=== PATIENT | male | born 1955 | race Caucasian/White ===

== ENCOUNTER 2019-08-26 08:00 | Outpatient (CLI) | payer OTHER, SELFPAY | END 2019-08-26 09:00 | disposition home or self-care (01) | LOC: RHEOACUTE 02-25 12:16 | PROVIDERS: PCP Family Medicine; Visit Provider Internal Medicine Rheumatology | DX: M05.79 Rheumatoid arthritis with rheumatoid factor of multiple sites without organ or systems involvement (principal); Z79.899 Other long term (current) drug therapy | CPT/HCPCS: 36415; 82565; 84460; 85007; 85027; 85651; 86140 ==

== ENCOUNTER 2019-08-26 08:54 | Outpatient (CLI) | payer OTHER, SELFPAY ==
[2019-08-26 09:15] VITALS: BP 130/81; PULSE 74; RESP 18; TEMP 36.4; O2SAT 96
--- NOTE | 2019-08-26 10:27 | PC.NURSE ---
STATES HIVES POPPING UP OVER LAST 7DAYS. BEEN ON CHANTIX AND THINKS IT MAY BE THAT. HAS BEEN TAKING BENADRYL. INSTRUCTED TO CONTINUE TO MONITOR AND LET US KNOW. POSSIBLY NEED TO CALL PCP RE CHANTIX PRESCRIPTION. STATES FEW DAYS LEFT OF CHANTIX.
[2019-08-26 10:28] VITALS: BP 127/92; PULSE 76; RESP 18; TEMP 36.5; O2SAT 96
== END 2019-08-26 08:55 | disposition home or self-care (01) ==
LOC: RHEOACUTE 08:56
PROVIDERS: Family Provider Family Medicine; PCP Family Medicine; Visit Provider Internal Medicine Rheumatology
DX: M05.79 Rheumatoid arthritis with rheumatoid factor of multiple sites without organ or systems involvement (principal); Z79.899 Other long term (current) drug therapy
CPT/HCPCS: 36415; 96365; J1602

== ENCOUNTER 2019-10-22 09:59 | Outpatient (CLI) | payer OTHER, SELFPAY ==
[2019-10-22 10:04] VITALS: BP 159/98; PULSE 71; RESP 16; TEMP 36.6; O2SAT 98
[2019-10-22 10:26] VITALS: BP 142/93; PULSE 68
[2019-10-22 11:46] VITALS: BP 146/94; PULSE 64; RESP 16; TEMP 36.6
== END 2019-10-22 10:00 | disposition home or self-care (01) ==
LOC: RHEOACUTE 10:00
PROVIDERS: Family Provider Family Medicine; PCP Family Medicine; Visit Provider Internal Medicine Rheumatology
DX: M05.79 Rheumatoid arthritis with rheumatoid factor of multiple sites without organ or systems involvement (principal); Z79.899 Other long term (current) drug therapy
CPT/HCPCS: 36415; 80076; 82565; 85025; 85651; 86140; 96365; J1602

== ENCOUNTER 2019-12-17 08:59 | Outpatient (CLI) | payer OTHER, SELFPAY ==
[2019-12-17 09:12] VITALS: BP 136/94; PULSE 66; RESP 16; TEMP 36.6; O2SAT 98
[2019-12-17 10:36] VITALS: BP 147/97; PULSE 55; RESP 16; TEMP 36.6; O2SAT 97
== END 2019-12-17 09:00 | disposition home or self-care (01) ==
LOC: RHEOACUTE 09:00
PROVIDERS: Family Provider Family Medicine; PCP Family Medicine; Visit Provider Internal Medicine Rheumatology
DX: M05.79 Rheumatoid arthritis with rheumatoid factor of multiple sites without organ or systems involvement (principal)
CPT/HCPCS: 96365; J1602

== ENCOUNTER → 2020-01-22 09:15 | Outpatient (BNVA) | payer OTHER, SELFPAY | PROVIDERS: Family Provider Family Medicine; PCP Family Medicine; Visit Provider Internal Medicine Rheumatology | DX: M05.79 Rheumatoid arthritis with rheumatoid factor of multiple sites without organ or systems involvement (principal); Z71.89 Other specified counseling; Z79.899 Other long term (current) drug therapy | CPT/HCPCS: 99214 ==

== ENCOUNTER 2020-02-11 08:58 | Outpatient (CLI) | payer OTHER, SELFPAY ==
[2020-02-11 09:00] VITALS: BP 138/94; PULSE 84; RESP 16; TEMP 36.8; O2SAT 98
[2020-02-11 10:29] VITALS: BP 153/100; PULSE 69; RESP 16; O2SAT 98
--- NOTE | 2020-02-11 10:30 | PC.NURSE ---
BP high. Pt states it's been running little higher. Will f/u with PCP.
== END 2020-02-11 08:59 | disposition home or self-care (01) ==
LOC: RHEOACUTE 08:58
PROVIDERS: Family Provider Family Medicine; PCP Family Medicine; Visit Provider Internal Medicine Rheumatology
DX: M05.79 Rheumatoid arthritis with rheumatoid factor of multiple sites without organ or systems involvement (principal); Z79.899 Other long term (current) drug therapy
CPT/HCPCS: 80076; 82565; 85025; 85651; 86140; 96365; J1602

== ENCOUNTER 2020-03-25 16:48 | Inpatient (IN) | payer MEDICARE, SELFPAY ==
[2020-03-25] VITALS (10 sets, daily range): BP systolic 97–133; BP diastolic 58–99; PULSE 66–97; RESP 18–27; TEMP 36.9; O2SAT 91–96; BMI 28.0
--- NOTE | 2020-03-25 16:58 | XR_ITS ---
WS: [id number] EXAM: AP CHEST: PORTABLE UPRIGHT DATE OF EXAM: 03/25/2020, 1708 hours COMPARISON: Chest x-ray from 05/25/2018 HISTORY: Patient is 65 years old with shortness of breath. Covid 19 infection.. FINDINGS: The cardiac silhouette is normal in size. The mediastinal contours are similar. Retrocardiac hiata l hernia demonstrated.. The pulmonary vascularity is normal. Chronic lung changes again seen. Lung s are clear of consolidation. There is no effusion or pneumothorax. No acute bony abnormality is se en. XR/XR chest 1V portable [id number] IMPRESSION: Chronic lung changes. Retrocardiac hiatal hernia. No acute pulmonary disease.
--- NOTE | 2020-03-25 16:58 | ECG_ITS ---
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 Measurements Intervals [place] Rate: 93 P: 36 NE: 135 QRS: -49 QRSD: 110 T: 52 QT: 339 QTc: 422 Interpretive Statements SINUS RHYTHM LEFT ANTERIOR FASCICULAR BLOCK [QRS AXIS <= -45, QR IN I, RS IN II] No previous ECG available for comparison Electronically Signed On 03-25-2020 19:43:01 CDT by Carlos Garcia M.D. [email or web address]
[2020-03-25 17:15] LABS: Basophils % 0.5 %; Hematocrit 46.4 % (42.0-52.0); Hemoglobin 15.2 g/dL (11.7-16.6); Lymphocytes # 1.3 10^3/uL (0.8-4.8); Mean Corpuscular HGB Conc 32.8 g/dL (30.0-36.0); Mean Corpuscular Hemoglobin 27.9 pg (28.0-34.0); Mean Corpuscular Volume 85.1 fL (80-94); Mean Platelet Volume 10.6 fL (7.4-10.4); Monocytes # 0.7 10^3/uL (0.2-0.9); Monocytes % 17.3 %; Neutrophils # 2.16 10^3/uL (1.8-7.7); Neutrophils % 51.7 %; Nucleated Red Blood Cells % 0 %; Platelet Count 169 10^3/cmm (130-400); Red Blood Count 5.45 10^6/uL (4.1-5.3); Red Cell Distribution Width 14.5 % (12.1-15.1); White Blood Count 4.2 10^3/uL (4.0-10.0)
[2020-03-25 17:31] LABS: INR 0.91 (0.8-1.2)
[2020-03-25 17:32] LABS: Fibrinogen 514 mg/dL (174-498); Partial Thromboplastin Time 42.8 SECONDS (23.9-36.7)
[2020-03-25 17:35] LABS: D Dimer 0.95 ug/mIFEU (0-0.59)
[2020-03-25 17:36] LABS: Lactic Sepsis W/Reflex 1.7 mmol/L (0.5-2.2)
[2020-03-25 17:43] LABS: Troponin T (5th) Once 10 ng/L (0-15)
[2020-03-25] MEDS: enoxaparin 100 mg/mL Syringe SUBCUT (18:06)
[2020-03-25] MEDS: dexamethasone 10 mg/mL INJ IVP (18:06)
[2020-03-25 18:07] LABS: ABG PCO2 28.2 mmHg (35-45); ABG PH Result 7.46 (7.35-7.45); Arterial Blood Gas Hematocrit 45.3 % (42-52); Base Excess ABG -2.6 mmol/L (-2.0-2.0); Blood Gas Allen Test Pos; Blood Gas Sample Site Radial, right; Blood Gas Sample Type Arterial; HCO3 ABG 19.9 mmol/L (22-26); Oxygen Device NC; PO2 ABG 70.8 mmHg (80.0-100.0)
[2020-03-25 18:32] LABS: Influenza A by IFA Negative (Negative); Influenza B by IFA Negative (Negative)
--- NOTE | 2020-03-25 19:39 | W.ED.SOB ---
HPI - SOB/Dyspnea General: Chief Complaint: Shortness of Breath/Dyspnea Stated Complaint: SOB, COVID POSITIVE Time Seen by Provider: 03/25/20 16:58 History of Present Illness: HPI Narrative: This patient is a 65-year-old male presenting with a history of a positive COVID test. He started having symptoms 7 days ago with low-grade fever. Last night he developed a high fever to 103 degrees. His oxygen saturation at home was around 89%. This morning he felt a little bit better but still not well. He has muscle aches but also notes that he has rheumatoid arthritis. He did a virtual visit with his primary care physician today and due to concerns over his immune compromised status and his subjective shortness of breath he was sent to the ER. It was felt that he probably meets criteria for remdesivir. He has taken Tylenol for the fever. He has had some nausea and diarrhea but no vomiting. He has had cough but very mild. MD elicited complaint: shortness of breath and cough Pertinent past history: other Onset (ago): day(s) (7) Timing: constant Severity: moderate Exacerbating factors: nothing Relieving factors: nothing Associated symptoms: Reports fever(s), myalgias and nausea; Deny chest pain Treatment prior to arrival: none Review of Systems General: Reports: 10 or more systems reviewed and unremarkable except in HPI and below Const: Reports: fever(s), chills, body aches, fatigue and malaise Eyes: Denies: change in vision ENMT: Reports: nasal congestion; Denies: odynophagia Card: Denies: chest pain or swelling of feet/ankles Resp: Reports: dyspnea and non-productive cough; Denies: productive cough GI: Reports: nausea and diarrhea : Denies: flank pain Musc: Denies: neck pain or back pain Skin/Breast: Denies: rash Neuro: Denies: headache(s), numbness in extremities or weakness in extremities Sukumar/Lymph: Denies: easy bruising or easy bleeding PFS ED PFSH: Medical History Fibromyalgia Health education Hiatal hernia High risk medication use Hypertension Immunization counseling Rheumatoid arthritis Seropositive rheumatoid arthritis of multiple sites Surgical History S/P prostatectomy Locally advanced prostate cancer status post prostatectomy Family History Other CAD (coronary artery disease) Cancer Family history of premature coronary artery disease Hypertension Stroke Denies family history of Rheumatoid arthritis Diabetes Lupus Social History Smoking and tobacco status: former smoker Quit status (tobacco): has quit using tobacco Year quit tobacco: 2019 Alcohol intake: never Lives independently: Yes Household members: spouse Housing: House Physical Exam Const: COMMON NORMALS: no acute distress, patient oriented x3, no limitations and alert GENERAL APPEARANCE: cooperative and comfortable HENMT: HEAD & SCALP: normal to inspection FACE & SINUS: normal facial exam Eye: GENERAL EYE: appearance normal, both eyes and all related structures Neck/C-Spine: COMMON NORMALS: supple, no meningeal signs and no JVD Chest: COMMONS NORMALS: normal inspection of the chest Resp: EFFORT & INSPECTION: Yes tachypneic, Yes labored and Yes uses accessory muscles AUSCULTATION: crackles (Scattered) Cardio: COMMON NORMALS: no JVD, regular rate, regular rhythm and No murmurs present (Cardio) RATE: regular rate RHYTHM: regular rhythm GI: COMMON NORMALS: Normal to inspection, nondistended, normoactive bowel sounds present, Soft to palpation and non-tender INSPECTION: Yes normal to inspection AUSCULTATION: Yes normoactive bowel sounds PALPATION: Yes Soft to palpation Back/Pelvis: COMMON NORMALS: thoracic and lumbar spine normal to inspection Extremity: COMMON NORMALS: normal to inspection Neuro: COMMON NORMALS: patient oriented x3, moves all extremities, no focal motor deficits and no sensory deficits noted SENSORIUM/ORIENTATION: Yes alert MENINGEAL SIGNS: Yes no meningeal signs Psych: COMMON NORMALS: mental status grossly normal, cooperative and normal affect Skin: COMMON NORMALS: no rashes or lesions noted and turgor normal GENERAL SKIN EXAM: no rashes or lesions noted and turgor normal Course ED course: This nice patient has a known positive COVID test. He is immunocompromise due to rheumatoid arthritis and its treatment. His sats are borderline with a room air sat of 89% documented. He is definitely having increased work of breathing. He received Decadron, Lovenox, remdesivir and will be admitted to the viral ICU. Vital Signs: Vital signs: Vital Signs Temperature 97.8 F 03/26/20 04:00 Pulse Rate 65 03/26/20 07:00 Respiratory Rate 19 H 03/26/20 07:00 Blood Pressure 130/93 03/26/20 07:00 Pulse Oximetry 91 03/26/20 07:00 MDM - SOB/Dyspnea Lab Data: Labs: Lab Results 03/25/20 03/25/20 03/25/20 Range/Units 17:04 17:04 17:04 WBC 4.2 (4.0-10.0) 10^3/ uL RBC 5.45 H (4.1-5.3) 10^6/u L Hgb 15.2 (11.7-16.6) g/dL Hct 46.4 (42.0-52.0) % MCV 85.1 (80-94) fL MCH 27.9 L (28.0-34.0) pg MCHC 32.8 (30.0-36.0) g/dL RDW 14.5 (12.1-15.1) % Plt Count 169 (130-400) 10^3/c mm MPV 10.6 H (7.4-10.4) fL Neut % (Auto) 51.7 % Lymph % (Auto) 30.0 % Bethel % (Auto) 17.3 % Eos % (Auto) 0.0 % Baso % (Auto) 0.5 % Neut # (Auto) 2.16 (1.8-7.7) 10^3/u L Lymph # (Auto) 1.3 (0.8-4.8) 10^3/u L Bethel # (Auto) 0.7 (0.2-0.9) 10^3/u L Eos # (Auto) 0.0 (0.0-0.8) 10^3/u L Baso # (Auto) 0.0 (0.0-0.1) 10^3/u L Nucleated RBC % (a uto) 0 % Nucleated RBCs # 0.0 /100WBC PT 12.50 (12.1-14.9) SECO NDS INR 0.91 (0.8-1.2) APTT 42.8 H (23.9-36.7) SECO NDS Fibrinogen 514 H (174-498) mg/dL D-Dimer 0.95 H (0-0.59) ug/mIFE U Specimen Type Sample Site ABG pH (7.35-7.45) ABG pCO2 (35-45) mmHg ABG pO2 (80.0-100.0) mmH g ABG HCO3 (22-26) mmol/L ABG Base Excess (-2.0-2.0) mmol/ L Ghassan Test Hematocrit (42-52) % O2 Delivery Device O2 Liters/Min % FiO2 % Robotics Technician ID Sodium 135 L (136-145) mmol/L Potassium 3.8 (3.5-5.1) mmol/L Chloride 99 (98-107) mmol/L Carbon Dioxide 18 L (22-29) mmol/L Anion Gap 21.8 H (5-19) BUN 23 (8-23) mg/dL Creatinine 1.0 (0.7-1.2) mg/dL GFR Calculation 75.2 L (90-130) mL/min Glucose 113 (65-115) mg/dL Calculated Osmolal ity 284 L (285-295) mOsm/k g Lactic Acid (0.5-2.2) mmol/L Calcium 8.7 (8.5-10.5) mg/dL Magnesium 1.8 (1.7-2.3) mg/dL Ferritin 584 H (30-400) ng/mL Total Bilirubin 0.6 (0.15-1.2) mg/dL AST 39 (0-40) U/L ALT 33 (0-41) U/L Alkaline Phosphata se 92 (40-130) IU/L Creatine Kinase 53 (39-308) U/L Troponin T Gen 5 n g/L (0-15) ng/L C-Reactive Protein 18.3 H (0.0-4.9) mg/L NT-Pro-B Natriuret Pep 53 (0-125) pg/mL Total Protein 8.2 (6.6-8.7) g/dL Albumin 4.2 (3.5-5.2) g/dL Globulin 4.0 (1.3-4.6) g/dL Procalcitonin 0.10 (0-0.5) ng/mL Influenza Type A A g (Negative) Influenza Type B A g (Negative) 03/25/20 03/25/20 03/25/20 Range/Units 17:04 17:04 17:40 WBC (4.0-10.0) 10^3/ uL RBC (4.1-5.3) 10^6/u L Hgb (11.7-16.6) g/dL Hct (42.0-52.0) % MCV (80-94) fL MCH (28.0-34.0) pg MCHC (30.0-36.0) g/dL RDW (12.1-15.1) % Plt Count (130-400) 10^3/c mm MPV (7.4-10.4) fL Neut % (Auto) % Lymph % (Auto) % [place] % (Auto) % Eos % (Auto) % Baso % (Auto) % Neut # (Auto) (1.8-7.7) 10^3/u L Lymph # (Auto) (0.8-4.8) 10^3/u L Bethel # (Auto) (0.2-0.9) 10^3/u L Eos # (Auto) (0.0-0.8) 10^3/u L Baso # (Auto) (0.0-0.1) 10^3/u L Nucleated RBC % (a uto) % Nucleated RBCs # /100WBC PT (12.1-14.9) SECO NDS INR (0.8-1.2) APTT (23.9-36.7) SECO NDS Fibrinogen (174-498) mg/dL D-Dimer (0-0.59) ug/mIFE U Specimen Type Sample Site ABG pH (7.35-7.45) ABG pCO2 (35-45) mmHg ABG pO2 (80.0-100.0) mmH g ABG HCO3 (22-26) mmol/L ABG Base Excess (-2.0-2.0) mmol/ L Ghassan Test Hematocrit (42-52) % O2 Delivery Device O2 Liters/Min % FiO2 % Robotics Technician ID Sodium (136-145) mmol/L Potassium (3.5-5.1) mmol/L Chloride (98-107) mmol/L Carbon Dioxide (22-29) mmol/L Anion Gap (5-19) BUN (8-23) mg/dL Creatinine (0.7-1.2) mg/dL GFR Calculation (90-130) mL/min Glucose (65-115) mg/dL Calculated Osmolal ity (285-295) mOsm/k g Lactic Acid 1.7 (0.5-2.2) mmol/L Calcium (8.5-10.5) mg/dL Magnesium (1.7-2.3) mg/dL Ferritin (30-400) ng/mL Total Bilirubin (0.15-1.2) mg/dL AST (0-40) U/L ALT (0-41) U/L Alkaline Phosphata se (40-130) IU/L Creatine Kinase (39-308) U/L Troponin T Gen 5 n g/L 10 (0-15) ng/L C-Reactive Protein (0.0-4.9) mg/L NT-Pro-B Natriuret Pep (0-125) pg/mL Total Protein (6.6-8.7) g/dL Albumin (3.5-5.2) g/dL Globulin (1.3-4.6) g/dL Procalcitonin (0-0.5) ng/mL Influenza Type A A g Negative (Negative) Influenza Type B A g Negative (Negative) 03/25/20 Range/Units 17:57 WBC (4.0-10.0) 10^3/ uL RBC (4.1-5.3) 10^6/u L Hgb (11.7-16.6) g/dL Hct (42.0-52.0) % MCV (80-94) fL MCH (28.0-34.0) pg MCHC (30.0-36.0) g/dL RDW (12.1-15.1) % Plt Count (130-400) 10^3/c mm MPV (7.4-10.4) fL Neut % (Auto) % Lymph % (Auto) % Bethel % (Auto) % Eos % (Auto) % Baso % (Auto) % Neut # (Auto) (1.8-7.7) 10^3/u L Lymph # (Auto) (0.8-4.8) 10^3/u L [place]hel # (Auto) (0.2-0.9) 10^3/u L Eos # (Auto) (0.0-0.8) 10^3/u L Baso # (Auto) (0.0-0.1) 10^3/u L Nucleated RBC % (a uto) % Nucleated RBCs # /100WBC PT (12.1-14.9) SECO NDS INR (0.8-1.2) APTT (23.9-36.7) SECO NDS Fibrinogen (174-498) mg/dL D-Dimer (0-0.59) ug/mIFE U Specimen Type Arterial Sample Site Radial, right ABG pH 7.46 H (7.35-7.45) ABG pCO2 28.2 L (35-45) mmHg ABG pO2 70.8 L (80.0-100.0) mmH g ABG HCO3 19.9 L (22-26) mmol/L ABG Base Excess -2.6 L (-2.0-2.0) mmol/ L Ghassan Test Pos Hematocrit 45.3 (42-52) % O2 Delivery Device Nc O2 Liters/Min 2.0 % FiO2 28.0 % Robotics Technician ID jmn Sodium (136-145) mmol/L Potassium (3.5-5.1) mmol/L Chloride (98-107) mmol/L Carbon Dioxide (22-29) mmol/L Anion Gap (5-19) BUN (8-23) mg/dL Creatinine (0.7-1.2) mg/dL GFR Calculation (90-130) mL/min Glucose (65-115) mg/dL Calculated Osmolal ity (285-295) mOsm/k g Lactic Acid (0.5-2.2) mmol/L Calcium (8.5-10.5) mg/dL Magnesium (1.7-2.3) mg/dL Ferritin (30-400) ng/mL Total Bilirubin (0.15-1.2) mg/dL AST (0-40) U/L ALT (0-41) U/L Alkaline Phosphata se (40-130) IU/L Creatine Kinase (39-308) U/L Troponin T Gen 5 n g/L (0-15) ng/L C-Reactive Protein (0.0-4.9) mg/L NT-Pro-B Natriuret Pep (0-125) pg/mL Total Protein (6.6-8.7) g/dL Albumin (3.5-5.2) g/dL Globulin (1.3-4.6) g/dL Procalcitonin (0-0.5) ng/mL Influenza Type A A g (Negative) Influenza Type B A g (Negative) Discharge Plan Discharge Patient Disposition: Admitted As Inpatient Admit Provider: Ivis Chavez Discharge Date/Time: 03/25/20 21:15 Coding Level of Care Code 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
[2020-03-25 20:01] LABS: NT Pro B Type Natriuretic Pept 53 pg/mL (0-125)
[2020-03-25 20:18] LABS: Alanine Aminotransferase 33 U/L (0-41); Albumin Level 4.2 g/dL (3.5-5.2); Alkaline Phosphatase 92 IU/L (40-130); Anion Gap 21.8 (5-19); Aspartate Amino Transferase 39 U/L (0-40); Blood Urea Nitrogen 23 mg/dL (8-23); C Reactive Protein 18.3 mg/L (0.0-4.9); Calcium 8.7 mg/dL (8.5-10.5); Carbon Dioxide 18 mmol/L (22-29); Chloride 99 mmol/L (98-107); Ferritin 584 ng/mL (30-400); Glomerular Filtration Rate 75.2 mL/min (90-130); Glucose 113 mg/dL (65-115); Magnesium 1.8 mg/dL (1.7-2.3); Osmolality Calculated 284 mOsm/kg (285-295); Potassium 3.8 mmol/L (3.5-5.1); Sodium 135 mmol/L (136-145); Total Bilirubin 0.6 mg/dL (0.15-1.2); Total Protein 8.2 g/dL (6.6-8.7)
[2020-03-25 20:37] LABS: Creatine Phosphokinase 53 U/L (39-308)
--- NOTE | 2020-03-25 20:47 | P.HP_ITS ---
Providers/Chief Complaint Primary Care Provider: Mukesh Reyes MD Chief Complaint: SOB, COVID POSITIVE History of Present Illness Hitesh Araya is a 65 year old male who carries history of rheumatoid arthritis currently on methotrexate and folic acid was positive for SARS COVID-19 on Monday came in today for worsening of symptoms. Patient is stating that his symptoms started with myalgia, fever and shortness of breath on Monday, he was tested for COVID 19 which was positive, today at home he started experiencing worsening of shortness of breath, his pulse ox was reviewing 89% saturation, his PCP Dr. Reyes recommended evaluation in the hospital after telemetry clinic visit. Patient is endorsing myalgia, febrile episodes, lethargy nausea but denying vomiting. Diagnosis in the ER revealed hypoxia which improved with 2 to 3 L of nasal cannula oxygen supplementation, he received dexamethasone and remdesevir loading dose. At the time of my evaluation he was not in any active respiratory distress and was saturating well 96% on 2 L nasal cannula. ABG revealed respiratory alkalosis, influenza panel negative Review of Systems Const: Reports: fever(s), chills, body aches, fatigue and malaise Eyes: Denies: change in vision ENMT: Denies: throat pain Card: Denies: chest pain Resp: Reports: dyspnea and non-productive cough GI: Denies: abdominal pain : Denies: flank pain Musc: Reports: muscle cramps Skin/Breast: Denies: new lesions or lesions Neuro: Denies: headache(s) Psych: Denies: anxiety Endo: Denies: polyuria Sukumar/Lymph: Denies: easy bruising All/Imm: Denies: urticaria Medications/Allergies Home Medications Medication Instructions Recorded Confirmed Last Taken Type golimumab See Rx Instructions .ROUTE .COMPLEX 09/30/19 03/25/20 Unknown History valsartan 160 mg tablet 160 mg PO DAILY 09/30/19 03/25/20 03/25/20 History folic acid 1 mg tablet 1 mg PO DAILY #90 tab 10/01/19 03/25/20 03/25/20 Rx methotrexate sodium 2.5 mg tablet 15 mg PO .Weekly #30 tab 01/22/20 03/25/20 03/25/20 Rx Allergies Allergy/AdvReac Type Severity Reaction Status Date / Time shellfish derived Allergy Intermediate SWELL Verified 03/25/20 17:54 PFSH Acute PFSH: Medical History Fibromyalgia Health education Hiatal hernia High risk medication use Hypertension Immunization counseling Rheumatoid arthritis Seropositive rheumatoid arthritis of multiple sites Surgical History S/P prostatectomy Locally advanced prostate cancer status post prostatectomy Family History Other CAD (coronary artery disease) Cancer Family history of premature coronary artery disease Hypertension Stroke Denies family history of Rheumatoid arthritis Diabetes Lupus Social History Smoking and tobacco status: former smoker Quit status (tobacco): has quit using tobacco Year quit tobacco: 2019 Alcohol intake: never Lives independently: Yes Household members: spouse Housing: House Vitals/I&O/Wt Last Vital Signs Temp 98.4 F 03/25/20 17:07 Pulse 91 03/25/20 18:36 Resp 27 H 03/25/20 18:36 BP 112/69 03/25/20 18:36 Pulse Ox 95 03/25/20 18:36 Weight last 48 hrs Weight 104.326 kg Physical Exam Narrative: EXAM NARRATIVE: Very pleasant male currently not in any active respiratory distress Saturating well on 2 L nasal cannula 96% Normal hemodynamics Mild expiratory rhonchi bilateral lung base S1, S2 no tachycardia heart failure Abdomen soft nontender bowel sound present Neurologically no focal deficit GCS 15 EOMI, PERRLA Patient is wearing a facemask Appropriate mood and affect No lower extremity edema gangrene ulcer Data : 03/25/20 17:04 03/25/20 17:04 Micro: Microbiology 03/25/20 17:04 Blood Culture - Preliminary Blood SPECIMEN COLLECTED A&P Assessment and plan (1) COVID-19 determined by clinical diagnostic criteria: Day 7 of SARS COVID-19 Considering immunocompromise state due to methotrexate started dexamethasone and remdesevir Ventolin Currently doing well on 2 L nasal cannula Serial inflammatory markers ordered Procalcitonin does not depict superimposed bacterial infection Status: Acute (2) Acute respiratory failure with hypoxia: Secondary to SARS COVID-19 He was tested positive on 03/20 Severe respiratory illness requiring oxygen supplementation, monitor in VICU Patient lives with his who apparently is doing well without any active complaints or symptoms Status: Acute (3) Hyponatremia: Mild hyponatremia, I would avoid giving fluids at this point, no neurological signs or symptoms, monitor with BMP Status: Acute Additional A&P Information Rheumatoid arthritis: Holding methotrexate at this point DVT prophylaxis: Lovenox Cardiac diet Full code Attestations Medical Necessity Statement*: Anticipating stay in the hospital cross more than 2 midnights currently need management for COVID-19 respiratory illness requiring oxygen supplementation Time Spent in Patient Care: (>than 50% of time spent in counselling and/or direct pt care on unit) . 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
[2020-03-26] VITALS (42 sets, daily range): BP systolic 93–133; BP diastolic 57–99; PULSE 57–84; RESP 15–27; TEMP 36.3–36.8; O2SAT 86–96
[2020-03-26 05:05] LABS: Eosinophils % 0.6 %; Hematocrit 43.2 % (42.0-52.0); Hemoglobin 14.2 g/dL (11.7-16.6); Lymphocytes # 0.7 10^3/uL (0.8-4.8); Lymphocytes % 38.6 %; Mean Corpuscular HGB Conc 32.9 g/dL (30.0-36.0); Mean Corpuscular Volume 85.2 fL (80-94); Mean Platelet Volume 10.8 fL (7.4-10.4); Monocytes # 0.2 10^3/uL (0.2-0.9); Monocytes % 10.2 %; Nucleated Red Blood Cells % 0 %; Platelet Count 161 10^3/cmm (130-400); Red Blood Count 5.07 10^6/uL (4.1-5.3); Red Cell Distribution Width 14.5 % (12.1-15.1); White Blood Count 1.8 10^3/uL (4.0-10.0)
[2020-03-26 05:40] LABS: Procalcitonin 0.11 ng/mL (0-0.5)
[2020-03-26 05:41] LABS: Alanine Aminotransferase 31 U/L (0-41); Alkaline Phosphatase 85 IU/L (40-130); Anion Gap 13.1 (5-19); Aspartate Amino Transferase 35 U/L (0-40); Blood Urea Nitrogen 21 mg/dL (8-23); C Reactive Protein 19.3 mg/L (0.0-4.9); Calcium 8.5 mg/dL (8.5-10.5); Carbon Dioxide 23 mmol/L (22-29); Chloride 102 mmol/L (98-107); Creatine Phosphokinase 52 U/L (39-308); Globulin 3.7 g/dL (1.3-4.6); Glomerular Filtration Rate 97.3 mL/min (90-130); Glucose 196 mg/dL (65-115); Osmolality Calculated 286 mOsm/kg (285-295); Potassium 4.1 mmol/L (3.5-5.1); Sodium 134 mmol/L (136-145); Total Bilirubin 0.4 mg/dL (0.15-1.2); Total Protein 7.7 g/dL (6.6-8.7)
[2020-03-26] MEDS: acetaminophen 325 mg Tablet 650 MG PO ×2 (05:41→22:00)
[2020-03-26 05:49] LABS: Fibrinogen 488 mg/dL (174-498)
[2020-03-26 05:52] LABS: D Dimer 0.71 ug/mIFEU (0-0.59); Lactate Dehydrogenase 276 U/L (135-225)
[2020-03-26 07:09] LABS: Neutrophils # 0.88 10^3/uL (1.8-7.7)
[2020-03-26] MEDS: folic acid 1 mg Tablet PO (08:46)
[2020-03-26] MEDS: losartan 50 mg Tablet PO (08:47)
[2020-03-26] MEDS: dexamethasone 4 mg Tablet 6 MG PO (08:47)
--- NOTE | 2020-03-26 12:05 | P.PN_ITS ---
Subjective Subjective: Interval history: History and physical was reviewed. Hitesh reports he feels much better than yesterday. Does not feel short of breath on the oxygen. No vomiting or nausea currently. Medications: Reviewed: Yes Vitals/I&O/Wt Last Vital Signs Temp 97.8 F 03/26/20 04:00 Pulse 72 03/26/20 11:34 Resp 17 03/26/20 11:34 BP 115/74 03/26/20 10:00 Pulse Ox 93 03/26/20 11:34 03/25/20 03/26/20 03/26/20 22:59 06:59 14:59 Intake Total 100 / 100 120 / 120 Output Total 650 / 650 Balance 100 / 100 -650 / -550 120 / 120 Weight last 48 hrs Weight 104.326 kg Physical Exam Narrative: EXAM NARRATIVE: General exam no apparent distress Cardiovascular regular rate and rhythm, no murmur Lungs clear Abdomen is soft with positive bowel sounds Extremities no cyanosis clubbing or edema Data : 03/26/20 04:05 03/26/20 04:05 Micro: Microbiology 03/25/20 19:55 Blood Culture - Preliminary Blood SPECIMEN COLLECTED 03/25/20 17:04 Blood Culture - Preliminary Blood SPECIMEN COLLECTED A&P Assessment and plan (1) COVID-19 determined by clinical diagnostic criteria: Covid 19 pneumonia, requiring oxygen Ventolin as needed Continue dexamethasone, remdesivir Wean oxygen as tolerated Procalcitonin negative D-dimer slightly improved today Status: Acute (2) Acute respiratory failure with hypoxia: Secondary to SARS COVID-19 He was tested positive on 03/20 Moderate to severe illness. Status: Acute (3) Hyponatremia: Mild Status: Acute Additional A&P Information Rheumatoid arthritis. 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
--- NOTE | 2020-03-26 16:14 | PC.NURSE ---
Care assumed at 1600
[2020-03-26] MEDS: enoxaparin 40 mg/0.4 mL Syringe SUBCUT (18:18)
[2020-03-27] VITALS (21 sets, daily range): BP systolic 93–121; BP diastolic 60–86; PULSE 53–76; RESP 12–18; TEMP 36.1–36.7; O2SAT 89–95
--- NOTE | 2020-03-27 01:35 | PC.NURSE ---
Patient up ad maninder, walking to chair freely, denies SOB. O2 placed while resting in bed.
[2020-03-27 05:13] LABS: Hemoglobin 13.8 g/dL (11.7-16.6); Lymphocytes # 1.1 10^3/uL (0.8-4.8); Lymphocytes % 22.1 %; Mean Corpuscular HGB Conc 32.9 g/dL (30.0-36.0); Mean Corpuscular Hemoglobin 27.9 pg (28.0-34.0); Mean Corpuscular Volume 84.8 fL (80-94); Mean Platelet Volume 10.8 fL (7.4-10.4); Monocytes # 0.4 10^3/uL (0.2-0.9); Monocytes % 8.7 %; Neutrophils # 3.48 10^3/uL (1.8-7.7); Neutrophils % 68.6 %; Nucleated Red Blood Cells % 0 %; Platelet Count 195 10^3/cmm (130-400); Red Blood Count 4.95 10^6/uL (4.1-5.3); Red Cell Distribution Width 14.5 % (12.1-15.1); White Blood Count 5.1 10^3/uL (4.0-10.0)
[2020-03-27 05:41] LABS: Alanine Aminotransferase 27 U/L (0-41); Albumin Level 3.9 g/dL (3.5-5.2); Alkaline Phosphatase 76 IU/L (40-130); Anion Gap 15.1 (5-19); Aspartate Amino Transferase 30 U/L (0-40); Blood Urea Nitrogen 26 mg/dL (8-23); Calcium 8.6 mg/dL (8.5-10.5); Carbon Dioxide 21 mmol/L (22-29); Chloride 103 mmol/L (98-107); Globulin 3.6 g/dL (1.3-4.6); Glomerular Filtration Rate 113.5 mL/min (90-130); Glucose 147 mg/dL (65-115); Osmolality Calculated 287 mOsm/kg (285-295); Potassium 4.1 mmol/L (3.5-5.1); Sodium 135 mmol/L (136-145); Total Bilirubin 0.4 mg/dL (0.15-1.2); Total Protein 7.5 g/dL (6.6-8.7)
[2020-03-27] MEDS: dexamethasone 4 mg Tablet 6 MG PO (08:45)
[2020-03-27] MEDS: ascorbic acid 500 mg Tablet PO (08:45)
[2020-03-27] MEDS: folic acid 1 mg Tablet PO (08:45)
[2020-03-27] MEDS: zinc gluconate 50 mg Tablet PO (08:46)
[2020-03-27] MEDS: losartan 50 mg Tablet PO (08:46)
--- NOTE | 2020-03-27 12:56 | P.DS_ITS ---
Discharge Providers Date of Admission: 03/25/20 20:40 Date of Discharge: March 27, 2020 Attending Provider at Admission: Ivis Chavez MD Attending Provider at Discharge: Shawn Walter MD Primary Care Provider: Mukesh Reyes MD Diagnoses at Discharge Discharge Diagnosis (1) COVID-19 determined by clinical diagnostic criteria: Status: Acute (2) Acute respiratory failure with hypoxia: Status: Acute (3) Hyponatremia: Status: Acute Reason for Visit Reason for Visit: SOB, COVID POSITIVE Hospital Course Hospital Course: Hitesh was admitted through the emergency department, on March 25 with shortness of breath, hypoxia, and Covid 19 pneumonia. He was placed on remdesivir as well as dexamethasone. Anticoagulation was initiated with Lovenox. Chest x-ray showed infiltrate consistent with COVID. Procalcitonin level was not elevated. He was able to wean off oxygen March 26. He started a small amount on the night of the when he was sleeping and he weaned off again on the . Home O2 eval showed that he did not require any oxygen. It was thought he could be discharged home, to follow-up with his primary care provider by telehealth. He will continue to quarantine per health department recommendations. He will finish 2 more days of dexamethasone. He will return for any problems. Physical Exam Narrative: EXAM NARRATIVE: General exam is no apparent distress Cardiovascular regular rate and rhythm without murmur Lungs clear Abdomen is soft with positive bowel sounds Extremities no cyanosis clubbing or edema Discharge Data Data Completed and Pending: Completed Studies During Hospitalization Category Date Time Status XR chest 1V ken ble [id number] Stat Exams 03/25/20 16:58 Completed Pending at discharge Category Date Time Status Blood Culture Sta t Lab 03/25/20 19:55 Results Complete Blood Co unt w/Auto AM LABS Lab 03/28/20 04:00 Ordered Comprehensive Met abolic Panel AM LA BS Lab 03/28/20 04:00 Ordered Labs from last 24 hours 03/27/20 03/27/20 04:31 04:31 WBC 5.1 RBC 4.95 Hgb 13.8 Hct 42.0 MCV 84.8 MCH 27.9 L MCHC 32.9 RDW 14.5 Plt Count 195 MPV 10.8 H Neut % (Auto) 68.6 Lymph % (Auto) 22.1 Murray % (Auto) 8.7 Eos % (Auto) 0.0 Baso % (Auto) 0.0 Neut # (Auto) 3.48 Lymph # (Auto) 1.1 Murray # (Auto) 0.4 Eos # (Auto) 0.0 Baso # (Auto) 0.0 Nucleated RBC % (a uto) 0 Nucleated RBCs # 0.0 Sodium 135 L Potassium 4.1 Chloride 103 Carbon Dioxide 21 L Anion Gap 15.1 BUN 26 H Creatinine 0.7 GFR Calculation 113.5 Glucose 147 H Calculated Osmolal ity 287 Calcium 8.6 Total Bilirubin 0.4 AST 30 ALT 27 Alkaline Phosphata se 76 Total Protein 7.5 Albumin 3.9 Globulin 3.6 Vitals: Last Vital Signs Temp 98.0 F 03/27/20 12:38 Pulse 67 03/27/20 12:38 Resp 16 03/27/20 12:38 BP 112/86 03/27/20 07:30 Pulse Ox 93 03/27/20 12:38 Discharge Plan Discharge Patient Disposition: Home Condition: Stable Prescriptions: New dexamethasone 4 mg Tablet 6 mg PO DAILY Qty: 3 RF: 0 Continued valsartan [Diovan] 160 mg tablet 160 mg PO DAILY RF: 0 folic acid 1 mg tablet 1 mg PO DAILY Qty: 90 RF: 3 Discontinued golimumab See Rx Instructions .ROUTE .COMPLEX RF: 0 methotrexate sodium 2.5 mg tablet 15 mg PO .Weekly Qty: 30 RF: 3 Discharge Orders: Discharge Order (Routine); Ordered 03/27/20 Ordered By: Shawn Walter Referrals: Mukesh Reyes MD [Primary Care Provider] - 4-7 days Discharge Diet: Cardiac Discharge Activity: Increase activity as tolerated Activity Restrictions/Additional Instructions: Follow quarantine instructions as directed by [facility]. Take medicine as prescribed. Return for any worsening. 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
--- NOTE | 2020-03-31 12:59 | PC.SOCIAL ---
Called and spoke with Mr Hitesh Araya on the phone [phone]. He state that he is doing fare. This program writer asked if he had his follow up appointment with Dr. Reyes yet. He stated that he did telehealth with him yesterday. I asked how that went and if he had any trouble with it. He stated that it went well, that he had no trouble with it. He stated that Dr. Reyes extended his prescription of steroids. He does have his for support who has yet to contract the COVID 19. We discussed ways the COVID 19 is spread and ways to prevent the spread. Ways the virus is spread is through droplets such as a cough or sneeze as well as shaking hands. I cautioned him on touching his face and being cautious of his possibly catching it that way. We discussed hand washing of 20 seconds or more, washing and disinfecting surfaces, covering coughs and sneezes, social distances and proper mask wearing. The ability to wash a cloth mask and making sure it is completely dried before wearing again. We spoke about limiting going out in public or having company over, to lessen the chances of spreading the virus. This program writer spoke with the patient about the symptoms to monitor that would trigger the need to call his primary care physician or even make a trip to the emergency room. I mentioned that he needs to monitor for shortness of breath, trouble breathing, fever of 104 degrees or higher, blue lips or face, confusion or trouble waking, chest pain or pressure in chest lasting longer than 5 minutes. He stated that he is not having any of those symptoms at this time. He did stated that he has been fighting fevers but none that were real concerning. This program writer asked if he reported them to his PCP, he stated that he did. The patient was educated on ways to help his immune system to stay healthy such as eating healthy like fruit and vegetables, lean meat, low fat dairy, etc. It was also mentions the benefits of getting rest and lessening any stress. I asked if he received the pneumonia shot or flu shot, he stated that it is not time for his pneumonia shot but has not had the flu shot yet this year. He did stated that he has been keeping up with his health screenings. The last discussion we had was about plasma donation. The patient found this to be interesting and stated that he did want information about it. Information was mailed to patient.
== END 2020-03-27 14:11 | disposition home or self-care (01) | DRG 177 ==
LOC: ER 17:09 → ICU 20:58
PROVIDERS: Physician Assistant; Admitting Provider Internal Medicine; PCP Family Medicine; Visit Provider Internal Medicine
DX: U07.1 COVID-19 (principal); J96.01 Acute respiratory failure with hypoxia; E87.3 Alkalosis; E87.1 Hypo-osmolality and hyponatremia; M05.9 Rheumatoid arthritis with rheumatoid factor, unspecified; M79.7 Fibromyalgia; K44.9 Diaphragmatic hernia without obstruction or gangrene; Z79.899 Other long term (current) drug therapy; I10 Essential (primary) hypertension; Z90.79 Acquired absence of other genital organ(s); C61 Malignant neoplasm of prostate; Z87.891 Personal history of nicotine dependence; D89.9 Disorder involving the immune mechanism, unspecified
CPT/HCPCS: 12345; 36415; 71045; 80053; 82550; 82728; 82803; 83605; 83615; 83735; 83880; 84145; 84484; 85025; 85378; 85384; 85610; 85730; 86140; 87040; 87804; 93005; 94640; 96372; 99284; J1100; J1650; J8540

== ENCOUNTER 2020-04-01 05:12 | Inpatient (IN) | payer MEDICARE, SELFPAY ==
[2020-04-01] VITALS (41 sets, daily range): BP systolic 80–148; BP diastolic 58–104; PULSE 58–127; RESP 14–43; TEMP 36.6–37.4; O2SAT 86–98; BMI 28.0
--- NOTE | 2020-04-01 05:27 | XRR_ITS ---
PROCEDURE INFORMATION: Exam: XR Chest, 1 View Exam date and time: 04/01/2020 5:58 AM Age: 65 years old Clinical indication: Dyspnea TECHNIQUE: Imaging protocol: XR of the chest Views: Frontal portable upright view of the chest. COMPARISON: CR XR chest 1V portable [id number] 03/25/2020 5:06 PM FINDINGS: Tubes, catheters and devices: EKG leads are present overlying the chest. Lungs: Lateral left mid lung zone pulmonary infiltrate/atelectasis. Mild left lateral basilar subsegmental atelectasis. The lungs are otherwise peripherally clear bilaterally. The pulmonary vasculature is normal. Pleural space: No pleural effusion. No pneumothorax. Heart/Mediastinum: The heart is normal in size and contour. Mediastinum: Stable. A moderate hiatal hernia is present above the level of the diaphragm. Bones/joints: Stable. XR/XR chest 1V portable [id number] IMPRESSION: 1. Lateral left mid lung zone pulmonary infiltrate/atelectasis. Pneumonitis is difficult to exclude. Clinical correlation is recommended. 2. Mild left lateral basilar subsegmental atelectasis. 3. Hiatal hernia.
[2020-04-01] MEDS: dexamethasone 10 mg/mL INJ IVP (05:28)
[2020-04-01] MEDS: sodium chloride 0.9% 1,000 ML 100 ML IV ×2 (05:28→06:44)
--- NOTE | 2020-04-01 05:29 | ECG_ITS ---
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 Measurements Intervals [place] Rate: 108 P: 49 LA: 126 QRS: -38 QRSD: 112 T: 47 QT: 310 QTc: 416 Interpretive Statements SINUS TACHYCARDIA POSSIBLE LEFT ATRIAL ENLARGEMENT [-0.1mV P WAVE IN V1/V2] LEFT AXIS DEVIATION [QRS AXIS < -30] INCOMPLETE RIGHT BUNDLE BRANCH BLOCK [90+ ms QRS DURATION, TERMINAL R IN V1/V2, 40+ ms S IN I/aVL/V4/V5/V6] Compared to ECG 03/25/2020 18:06:56 Left-axis deviation now present Incomplete right bundle-branch block now present Sinus rhythm no longer present Left anterior fascicular block no longer present Electronically Signed On 04-01-2020 13:55:34 CDT by Ashlee Jauregui M.D. [id number]
--- NOTE | 2020-04-01 05:31 | ED_ITS ---
Documented by User: Justina Nguyen 04/01/20 05:38 HPI - General Adult General: Chief complaint: Shortness of Breath/Dyspnea Stated complaint: covid Time Seen by Provider: 04/01/20 05:19 Source: patient Mode of arrival: ambulatory Limitations: no limitations History of Present Illness: HPI narrative: Hitesh is a nice 65-year-old male who comes in complaining of increased shortness of breath. Patient was recently in the hospital for COVID-19 viral pneumonitis. He states since going home he has had the past several mornings woken up with significant shortness of breath. He denies any nausea vomiting or diarrhea. Patient states this morning his shortness of breath is much worse. Patient is not reporting any chest pain. He states in him of exertion makes his symptoms worse. He states this morning symptoms are worse than the past several days because of that he became to the hospital for evaluation. Of note the patient's pulse ox is 90% on room air without exertion. Associated symptoms: Reports dyspnea; Deny chest pain, headache(s), nausea, rash, palpitations, syncope or vomiting Review of Systems Const: Denies: fever(s) Eyes: Denies: change in vision or blurry vision ENMT: Denies: throat pain, hoarseness or swelling of lips/tongue Card: Denies: chest pain, palpitations, syncope, pre-syncope or dyspnea on exertion Resp: Reports: dyspnea and non-productive cough; Denies: productive cough, wheezing, change in phlegm color or hemoptysis GI: Denies: abdominal pain, nausea, vomiting or diarrhea : Denies: flank pain, dysuria, urinary frequency or urinary urgency Musc: Denies: neck pain, back pain or extremity pain Skin/Breast: Denies: rash or pruritus Neuro: Denies: headache(s), numbness in extremities, weakness in extremities or dizziness Sukumar/Lymph: Denies: easy bruising, easy bleeding, petechiae or purpura All/Imm: Denies: urticaria or throat swelling PFS ED PFSH: Medical History (Updated 04/04/20 @ 17:16 by Elver Weir DO) Fibromyalgia Health education Hiatal hernia High risk medication use Hypertension Immunization counseling Rheumatoid arthritis Seropositive rheumatoid arthritis of multiple sites Surgical History (Updated 04/01/20 @ 09:14 by Richard Hyatt MD) Hx of cholecystectomy S/P prostatectomy Locally advanced prostate cancer status post prostatectomy Family History Other CAD (coronary artery disease) Cancer Family history of premature coronary artery disease Hypertension Stroke Denies family history of Rheumatoid arthritis Diabetes Lupus Social History Smoking and tobacco status: former smoker Quit status (tobacco): has quit using tobacco Year quit tobacco: 2019 Alcohol intake: never Lives independently: Yes Household members: spouse Housing: House Physical Exam Const: COMMON NORMALS: patient oriented x3, no limitations and alert GENERAL APPEARANCE: cooperative HENMT: COMMON NORMALS: normocephalic, atraumatic, external ears normal, EAC's normal and Normal external nose present HEAD & SCALP: normal to inspection, normocephalic and atraumatic FACE & SINUS: normal facial exam and face symm etric NOSE: Normal external nose present and Normal nares present EXTERNAL EAR: Yes external ears normal EXTERNAL AUDITORY CANAL: EAC's normal MOUTH: Normal oral and palatal mucosa present, lip normal and tongue normal Eye: COMMON NORMALS: Equal, round and reactive pupils present and conjunctivae normal GENERAL EYE: appearance normal, both eyes and all related structures ALIGNMENT: Yes alignment normal PERIORBITAL: periorbital findings normal EYELID: eyelids normal CONJUNCTIVA: Yes conjunctivae normal SCLERA: sclerae normal PUPIL: Yes Equal, round and reactive pupils present Neck/C-Spine: COMMON NORMALS: full ROM, no lymphadenopathy, supple, no meningeal signs and no JVD GENERAL: Yes normal visual inspection and Yes trachea midline Chest: COMMONS NORMALS: normal inspection of the chest and normal palpation of entire chest wall Resp: COMMON NORMALS: No retractions, No use of accessory muscles and clear to auscultation bilaterally EFFORT & INSPECTION: Yes able to speak in complete sentences, Yes symmetric chest movement and Yes tachypneic AUSCULTATION: clear to auscultation bilaterally, no crackles, no rales, rhonchi and no wheezes Cardio: COMMON NORMALS: no JVD, regular rate, regular rhythm, S1 normal heart sound present and S2 normal heart sound present RATE: regular rate RHYTHM: regular rhythm HEART SOUNDS: S1 normal heart sound present, S2 normal heart sound present, no click, no gallops, no murmurs and no rubs GI: COMMON NORMALS: Soft to palpation and No hepatosplenomegaly present PALPATION: Yes Soft to palpation, No Tenderness to palpation present (GI), No Guarding due to palpation present (GI), No Rigid due to palpation, Yes No hepatosplenomegaly present, No Hernia present, No Palpable mass present and No Pulsatile mass present : COMMON NORMALS: Yes no CVA tenderness BLADDER/KIDNEY EXAM: Yes no CVA tenderness Back/Pelvis: COMMON NORMALS: no CVA tenderness, thoracic and lumbar spine normal to inspection, no thoracic nor lumbar tenderness and thoraco-lumbar ROM normal Extremity: COMMON NORMALS: normal to inspection, full ROM, capillary refill normal, no joint enlargement, no clubbing, cyanosis or edema and no calf tenderness Neuro: COMMON NORMALS: patient oriented x3, CN's II-XII intact bilaterally, moves all extremities, no focal motor deficits and no sensory deficits noted SENSORIUM/ORIENTATION: Yes alert MENINGEAL SIGNS: Yes no meningeal signs SPEECH: speech normal Psych: COMMON NORMALS: mental status grossly normal, Normal thought process present, cooperative, normal affect, speech normal and activity/motor behavior normal SPEECH: Yes normal speech THOUGHT PROCESS: Normal thought process present Skin: COMMON NORMALS: no rashes or lesions noted, turgor normal, no jaundice, no petechiae and no mottling GENERAL SKIN EXAM: no rashes or lesions noted and turgor normal Course Vital Signs: Vital signs: Vital Signs Temperature 98.2 F 04/04/20 08:00 Pulse Rate 86 04/04/20 16:10 Respiratory Rate 19 H 04/04/20 16:10 Blood Pressure 116/75 04/04/20 13:00 Pulse Oximetry 95 04/04/20 16:10 [facility] - General Adult Lab Data: Labs: Lab Results 04/01/20 04/01/20 04/01/20 Range/Units 05:17 05:17 05:17 WBC 11.5 H (4.0-10.0) 10^3/ uL RBC 5.49 H (4.1-5.3) 10^6/u L Hgb 15.5 (11.7-16.6) g/dL Hct 47.1 (42.0-52.0) % MCV 85.8 (80-94) fL MCH 28.2 (28.0-34.0) pg MCHC 32.9 (30.0-36.0) g/dL RDW 14.8 (12.1-15.1) % Plt Count 255 (130-400) 10^3/c mm MPV 10.6 H (7.4-10.4) fL Neut % (Auto) 81.4 % Lymph % (Auto) 8.0 % Bell % (Auto) 6.7 % Eos % (Auto) 0.0 % Baso % (Auto) 0.3 % Neut # (Auto) 9.37 H (1.8-7.7) 10^3/u L Lymph # (Auto) 0.9 (0.8-4.8) 10^3/u L Bell # (Auto) 0.8 (0.2-0.9) 10^3/u L Eos # (Auto) 0.0 (0.0-0.8) 10^3/u L Baso # (Auto) 0.0 (0.0-0.1) 10^3/u L Nucleated RBC % (a uto) 0 % Nucleated RBCs # 0.0 /100WBC PT 12.40 (12.1-14.9) SECO NDS INR 0.90 (0.8-1.2) Fibrinogen 697 H (174-498) mg/dL D-Dimer 2.83 H (0-0.59) ug/mIFE U Specimen Type Sample Site ABG pH (7.35-7.45) ABG pCO2 (35-45) mmHg ABG pO2 (80.0-100.0) mmH g ABG HCO3 (22-26) mmol/L ABG O2 Saturation ABG Base Excess (-2.0-2.0) mmol/ L Ghassan Test A-a O2 Gradient (5-10) mmHg Hematocrit (42-52) % Hgb O2 Saturation (95-100) % Carboxyhemoglobin (0.4-20.1) %THgb Methemoglobin (0.4-1.5) % Total Hemoglobin (14-18) g/dL Ionized Calcium (1.1-1.4) mmol/L O2 Delivery Device O2 Liters/Min % FiO2 % Arboriculture Instructor ID Sodium 134 L (136-145) mmol/L Potassium 4.4 (3.5-5.1) mmol/L Chloride 97 L (98-107) mmol/L Carbon Dioxide 22 (22-29) mmol/L Anion Gap 19.4 H (5-19) BUN 21 (8-23) mg/dL Creatinine 0.9 (0.7-1.2) mg/dL GFR Calculation 85.0 L (90-130) mL/min Glucose 109 (65-115) mg/dL Calculated Osmolal ity 282 L (285-295) mOsm/k g Lactic Acid (0.5-2.2) mmol/L Calcium 8.9 (8.5-10.5) mg/dL Magnesium 2.0 (1.7-2.3) mg/dL Total Bilirubin 0.8 (0.15-1.2) mg/dL AST 41 H (0-40) U/L ALT 93 H (0-41) U/L Alkaline Phosphata se 91 (40-130) IU/L Lactate Dehydrogen ase 344 H (135-225) U/L Troponin T Baselin e (0-15) ng/L C-Reactive Protein 137.6 H (0.0-4.9) mg/L NT-Pro-B Natriuret Pep 360 H (0-125) pg/mL Total Protein 7.8 (6.6-8.7) g/dL Albumin 4.0 (3.5-5.2) g/dL Globulin 3.8 (1.3-4.6) g/dL Procalcitonin 0.14 (0-0.5) ng/mL Influenza Type A A g (Negative) Influenza Type B A g (Negative) 04/01/20 04/01/20 04/01/20 Range/Units 05:17 05:17 05:17 WBC (4.0-10.0) 10^3/ uL RBC (4.1-5.3) 10^6/u L Hgb (11.7-16.6) g/dL Hct (42.0-52.0) % MCV (80-94) fL MCH (28.0-34.0) pg MCHC (30.0-36.0) g/dL RDW (12.1-15.1) % Plt Count (130-400) 10^3/c mm MPV (7.4-10.4) fL Neut % (Auto) % Lymph % (Auto) % Bell % (Auto) % Eos % (Auto) % Baso % (Auto) % Neut # (Auto) (1.8-7.7) 10^3/u L Lymph # (Auto) (0.8-4.8) 10^3/u L Bell # (Auto) (0.2-0.9) 10^3/u L Eos # (Auto) (0.0-0.8) 10^3/u L Baso # (Auto) (0.0-0.1) 10^3/u L Nucleated RBC % (a uto) % Nucleated RBCs # /100WBC PT (12.1-14.9) SECO NDS INR (0.8-1.2) Fibrinogen (174-498) mg/dL D-Dimer (0-0.59) ug/mIFE U Specimen Type Sample Site ABG pH (7.35-7.45) ABG pCO2 (35-45) mmHg ABG pO2 (80.0-100.0) mmH g ABG HCO3 (22-26) mmol/L ABG O2 Saturation ABG Base Excess (-2.0-2.0) mmol/ L Ghassan Test A-a O2 Gradient (5-10) mmHg Hematocrit (42-52) % Hgb O2 Saturation (95-100) % Carboxyhemoglobin (0.4-20.1) %THgb Methemoglobin (0.4-1.5) % Total Hemoglobin (14-18) g/dL Ionized Calcium (1.1-1.4) mmol/L O2 Delivery Device O2 Liters/Min % FiO2 % Arboriculture Instructor ID Sodium (136-145) mmol/L Potassium (3.5-5.1) mmol/L Chloride (98-107) mmol/L Carbon Dioxide (22-29) mmol/L Anion Gap (5-19) BUN (8-23) mg/dL Creatinine (0.7-1.2) mg/dL GFR Calculation (90-130) mL/min Glucose (65-115) mg/dL Calculated Osmolal ity (285-295) mOsm/k g Lactic Acid 1.8 (0.5-2.2) mmol/L Calcium (8.5-10.5) mg/dL Magnesium (1.7-2.3) mg/dL Total Bilirubin (0.15-1.2) mg/dL AST (0-40) U/L ALT (0-41) U/L Alkaline Phosphata se (40-130) IU/L Lactate Dehydrogen ase (135-225) U/L Troponin T Baselin e 12 (0-15) ng/L C-Reactive Protein (0.0-4.9) mg/L NT-Pro-B Natriuret Pep (0-125) pg/mL Total Protein (6.6-8.7) g/dL Albumin (3.5-5.2) g/dL Globulin (1.3-4.6) g/dL Procalcitonin (0-0.5) ng/mL Influenza Type A A g Negative (Negative) Influenza Type B A g Negative (Negative) 04/01/20 Range/Units 05:44 WBC (4.0-10.0) 10^3/ uL RBC (4.1-5.3) 10^6/u L Hgb (11.7-16.6) g/dL Hct (42.0-52.0) % MCV (80-94) fL MCH (28.0-34.0) pg MCHC (30.0-36.0) g/dL RDW (12.1-15.1) % Plt Count (130-400) 10^3/c mm MPV (7.4-10.4) fL Neut % (Auto) % Lymph % (Auto) % Bell % (Auto) % Eos % (Auto) % Baso % (Auto) % Neut # (Auto) (1.8-7.7) 10^3/u L Lymph # (Auto) (0.8-4.8) 10^3/u L Bell # (Auto) (0.2-0.9) 10^3/u L Eos # (Auto) (0.0-0.8) 10^3/u L Baso # (Auto) (0.0-0.1) 10^3/u L Nucleated RBC % (a uto) % Nucleated RBCs # /100WBC PT (12.1-14.9) SECO NDS INR (0.8-1.2) Fibrinogen (174-498) mg/dL D-Dimer (0-0.59) ug/mIFE U Specimen Type Arterial Sample Site Radial, right ABG pH 7.57 H* (7.35-7.45) ABG pCO2 22.9 L (35-45) mmHg ABG pO2 62.2 L (80.0-100.0) mmH g ABG HCO3 20.9 L (22-26) mmol/L ABG O2 Saturation 93.1 ABG Base Excess 0.8 (-2.0-2.0) mmol/ L Ghassan Test Pos A-a O2 Gradient 21.4 H (5-10) mmHg Hematocrit 47.0 (42-52) % Hgb O2 Saturation 92.4 L (95-100) % Carboxyhemoglobin 0.0 L (0.4-20.1) %THgb Methemoglobin 0.7 (0.4-1.5) % Total Hemoglobin 15.3 (14-18) g/dL Ionized Calcium 1.2 (1.1-1.4) mmol/L O2 Delivery Device Nc O2 Liters/Min 4.0 % FiO2 36.0 % Arboriculture Instructor ID glc Sodium 134.0 (136-145) mmol/L Potassium 3.8 (3.5-5.1) mmol/L Chloride (98-107) mmol/L Carbon Dioxide (22-29) mmol/L Anion Gap (5-19) BUN (8-23) mg/dL Creatinine (0.7-1.2) mg/dL GFR Calculation (90-130) mL/min Glucose 108.0 (65-115) mg/dL Calculated Osmolal ity (285-295) mOsm/k g Lactic Acid (0.5-2.2) mmol/L Calcium (8.5-10.5) mg/dL Magnesium (1.7-2.3) mg/dL Total Bilirubin (0.15-1.2) mg/dL AST (0-40) U/L ALT (0-41) U/L Alkaline Phosphata se (40-130) IU/L Lactate Dehydrogen ase (135-225) U/L Troponin T Baselin e (0-15) ng/L C-Reactive Protein (0.0-4.9) mg/L NT-Pro-B Natriuret Pep (0-125) pg/mL Total Protein (6.6-8.7) g/dL Albumin (3.5-5.2) g/dL Globulin (1.3-4.6) g/dL Procalcitonin (0-0.5) ng/mL Influenza Type A A g (Negative) Influenza Type B A g (Negative) EKG Data^: EKG 1: Attestation: I personally reviewed and interpreted this EKG as follows: EKG interpretation date: 04/01/20 EKG interpretation time: 05:22 Interpretation: Sinus tachycardia at 108 beats a minute, left axis deviation, incomplete right bundle branch block, left anterior fascicular block, nonspecific ST and T wave changes. Computer generated interpretation: Chest X-Ray 04/01/20 05:27 IMPRESSION: 1. Lateral left mid lung zone pulmonary infiltrate/atelectasis. Pneumonitis is difficult to exclude. Clinical correlation is recommended. 2. Mild left lateral basilar subsegmental atelectasis. 3. Hiatal hernia. Chest CTA 04/02/20 07:45 IMPRESSION: 1. Multiple small filling defects in the right upper lobe pulmonary branches consistent with acute pulmonary embolus. 2. Proximal main pulmonary arteries are normal. 3. A few prominent mediastinal and peribronchial lymph nodes reactive. 4. Hazy groundglass infiltrates scattered within both lungs compatible with viral pneumonia. 5. No focal consolidation or significant pleural fluid. 6. Large esophageal hiatal hernia with partial intrathoracic stomach. Notified Richard Hyatt MD at 04/02/2020 12:18 PM. Discharge Plan Discharge Patient Disposition: Admitted As Inpatient Admit Provider: Richard Hyatt Clinical Impression: COVID-19 virus infection, Rheumatoid arthritis Condition: Stable Interventions: ED Discharge Assessment Last Done: 04/01/20 10:54 ED Charges Last Done: 04/01/20 10:54 Discharge Date/Time: 04/01/20 11:49 Sign Out Sign Out Data: Patient Sign Out occurred on 04/01/20 at 06:18. Patient's care was discussed, and care was transferred from to Elver Weir DO. Coding Level of Care Code ED Purchasing Officer for Chg Fwd Exam Comprehensive Documented by User: Elver Weir DO 04/04/20 17:16 HPI - General Adult General: Chief complaint: Shortness of Breath/Dyspnea Stated complaint: covid Time Seen by Provider: 04/01/20 05:19 PFSH ED PFSH: Medical History (Updated 04/04/20 @ 17:16 by Elver Weir DO) Fibromyalgia Health education Hiatal hernia High risk medication use Hypertension Immunization counseling Rheumatoid arthritis Seropositive rheumatoid arthritis of multiple sites Surgical History (Updated 04/01/20 @ 09:14 by Ricahrd Hyatt MD) Hx of cholecystectomy S/P prostatectomy Locally advanced prostate cancer status post prostatectomy Family History Other CAD (coronary artery disease) Cancer Family history of premature coronary artery disease Hypertension Stroke Denies family history of Rheumatoid arthritis Diabetes Lupus Social History Smoking and tobacco status: former smoker Quit status (tobacco): has quit using tobacco Year quit tobacco: 2019 Alcohol intake: never Lives independently: Yes Household members: spouse Housing: House Course Vital Signs: Vital signs: Vital Signs Temperature 98.2 F 04/04/20 08:00 Pulse Rate 86 04/04/20 16:10 Respiratory Rate 19 H 04/04/20 16:10 Blood Pressure 116/75 04/04/20 13:00 Pulse Oximetry 95 04/04/20 16:10 MDM - General Adult MDM Narrative: Medical decision making narrative: Patient is again encountering significant difficulty from his COVID-19 he will require ICU level of care. Will resume the dexamethasone discussed with pharmacy they did some research and found that they do not recommend reloading with him does severe. Instead will just resume it. Discussed with Dr. Hyatt as well orders are written. Lab Data: Labs: Lab Results 04/01/20 04/01/20 04/01/20 Range/Units 05:17 05:17 05:17 WBC 11.5 H (4.0-10.0) 10^3/ uL RBC 5.49 H (4.1-5.3) 10^6/u L Hgb 15.5 (11.7-16.6) g/dL Hct 47.1 (42.0-52.0) % MCV 85.8 (80-94) fL MCH 28.2 (28.0-34.0) pg MCHC 32.9 (30.0-36.0) g/dL RDW 14.8 (12.1-15.1) % Plt Count 255 (130-400) 10^3/c mm MPV 10.6 H (7.4-10.4) fL Neut % (Auto) 81.4 % Lymph % (Auto) 8.0 % Bell % (Auto) 6.7 % Eos % (Auto) 0.0 % Baso % (Auto) 0.3 % Neut # (Auto) 9.37 H (1.8-7.7) 10^3/u L Lymph # (Auto) 0.9 (0.8-4.8) 10^3/u L Bell # (Auto) 0.8 (0.2-0.9) 10^3/u L Eos # (Auto) 0.0 (0.0-0.8) 10^3/u L Baso # (Auto) 0.0 (0.0-0.1) 10^3/u L Nucleated RBC % (a uto) 0 % Nucleated RBCs # 0.0 /100WBC PT 12.40 (12.1-14.9) SECO NDS INR 0.90 (0.8-1.2) Fibrinogen 697 H (174-498) mg/dL D-Dimer 2.83 H (0-0.59) ug/mIFE U Specimen Type Sample Site ABG pH (7.35-7.45) ABG pCO2 (35-45) mmHg ABG pO2 (80.0-100.0) mmH g ABG HCO3 (22-26) mmol/L ABG O2 Saturation ABG Base Excess (-2.0-2.0) mmol/ L Ghassan Test A-a O2 Gradient (5-10) mmHg Hematocrit (42-52) % Hgb O2 Saturation (95-100) % Carboxyhemoglobin (0.4-20.1) %THgb Methemoglobin (0.4-1.5) % Total Hemoglobin (14-18) g/dL Ionized Calcium (1.1-1.4) mmol/L O2 Delivery Device O2 Liters/Min % FiO2 % Arboriculture Instructor ID Sodium 134 L (136-145) mmol/L Potassium 4.4 (3.5-5.1) mmol/L Chloride 97 L (98-107) mmol/L Carbon Dioxide 22 (22-29) mmol/L Anion Gap 19.4 H (5-19) BUN 21 (8-23) mg/dL Creatinine 0.9 (0.7-1.2) mg/dL GFR Calculation 85.0 L (90-130) mL/min Glucose 109 (65-115) mg/dL Calculated Osmolal ity 282 L (285-295) mOsm/k g Lactic Acid (0.5-2.2) mmol/L Calcium 8.9 (8.5-10.5) mg/dL Magnesium 2.0 (1.7-2.3) mg/dL Total Bilirubin 0.8 (0.15-1.2) mg/dL AST 41 H (0-40) U/L ALT 93 H (0-41) U/L Alkaline Phosphata se 91 (40-130) IU/L Lactate Dehydrogen ase 344 H (135-225) U/L Troponin T Baselin e (0-15) ng/L C-Reactive Protein 137.6 H (0.0-4.9) mg/L NT-Pro-B Natriuret Pep 360 H (0-125) pg/mL Total Protein 7.8 (6.6-8.7) g/dL Albumin 4.0 (3.5-5.2) g/dL Globulin 3.8 (1.3-4.6) g/dL Procalcitonin 0.14 (0-0.5) ng/mL Influenza Type A A g (Negative) Influenza Type B A g (Negative) 04/01/20 04/01/20 04/01/20 Range/Units 05:17 05:17 05:17 WBC (4.0-10.0) 10^3/ uL RBC (4.1-5.3) 10^6/u L Hgb (11.7-16.6) g/dL Hct (42.0-52.0) % MCV (80-94) fL MCH (28.0-34.0) pg MCHC (30.0-36.0) g/dL RDW (12.1-15.1) % Plt Count (130-400) 10^3/c mm MPV (7.4-10.4) fL Neut % (Auto) % Lymph % (Auto) % Bell % (Auto) % Eos % (Auto) % Baso % (Auto) % Neut # (Auto) (1.8-7.7) 10^3/u L Lymph # (Auto) (0.8-4.8) 10^3/u L Bell # (Auto) (0.2-0.9) 10^3/u L Eos # (Auto) (0.0-0.8) 10^3/u L Baso # (Auto) (0.0-0.1) 10^3/u L Nucleated RBC % (a uto) % Nucleated RBCs # /100WBC PT (12.1-14.9) SECO NDS INR (0.8-1.2) Fibrinogen (174-498) mg/dL D-Dimer (0-0.59) ug/mIFE U Specimen Type Sample Site ABG pH (7.35-7.45) ABG pCO2 (35-45) mmHg ABG pO2 (80.0-100.0) mmH g ABG HCO3 (22-26) mmol/L ABG O2 Saturation ABG Base Excess (-2.0-2.0) mmol/ L Ghassan Test A-a O2 Gradient (5-10) mmHg Hematocrit (42-52) % Hgb O2 Saturation (95-100) % Carboxyhemoglobin (0.4-20.1) %THgb Methemoglobin (0.4-1.5) % Total Hemoglobin (14-18) g/dL Ionized Calcium (1.1-1.4) mmol/L O2 Delivery Device O2 Liters/Min % FiO2 % Arboriculture Instructor ID Sodium (136-145) mmol/L Potassium (3.5-5.1) mmol/L Chloride (98-107) mmol/L Carbon Dioxide (22-29) mmol/L Anion Gap (5-19) BUN (8-23) mg/dL Creatinine (0.7-1.2) mg/dL GFR Calculation (90-130) mL/min Glucose (65-115) mg/dL Calculated Osmolal ity (285-295) mOsm/k g Lactic Acid 1.8 (0.5-2.2) mmol/L Calcium (8.5-10.5) mg/dL Magnesium (1.7-2.3) mg/dL Total Bilirubin (0.15-1.2) mg/dL AST (0-40) U/L ALT (0-41) U/L Alkaline Phosphata se (40-130) IU/L Lactate Dehydrogen ase (135-225) U/L Troponin T Baselin e 12 (0-15) ng/L C-Reactive Protein (0.0-4.9) mg/L NT-Pro-B Natriuret Pep (0-125) pg/mL Total Protein (6.6-8.7) g/dL Albumin (3.5-5.2) g/dL Globulin (1.3-4.6) g/dL Procalcitonin (0-0.5) ng/mL Influenza Type A A g Negative (Negative) Influenza Type B A g Negative (Negative) 04/01/20 Range/Units 05:44 WBC (4.0-10.0) 10^3/ uL RBC (4.1-5.3) 10^6/u L Hgb (11.7-16.6) g/dL Hct (42.0-52.0) % MCV (80-94) fL MCH (28.0-34.0) pg MCHC (30.0-36.0) g/dL RDW (12.1-15.1) % Plt Count (130-400) 10^3/c mm MPV (7.4-10.4) fL Neut % (Auto) % Lymph % (Auto) % Bell % (Auto) % Eos % (Auto) % Baso % (Auto) % Neut # (Auto) (1.8-7.7) 10^3/u L Lymph # (Auto) (0.8-4.8) 10^3/u L Bell # (Auto) (0.2-0.9) 10^3/u L Eos # (Auto) (0.0-0.8) 10^3/u L Baso # (Auto) (0.0-0.1) 10^3/u L Nucleated RBC % (a uto) % Nucleated RBCs # /100WBC PT (12.1-14.9) SECO NDS INR (0.8-1.2) Fibrinogen (174-498) mg/dL D-Dimer (0-0.59) ug/mIFE U Specimen Type Arterial Sample Site Radial, right ABG pH 7.57 H* (7.35-7.45) ABG pCO2 22.9 L (35-45) mmHg ABG pO2 62.2 L (80.0-100.0) mmH g ABG HCO3 20.9 L (22-26) mmol/L ABG O2 Saturation 93.1 ABG Base Excess 0.8 (-2.0-2.0) mmol/ L Ghassan Test Pos A-a O2 Gradient 21.4 H (5-10) mmHg Hematocrit 47.0 (42-52) % Hgb O2 Saturation 92.4 L (95-100) % Carboxyhemoglobin 0.0 L (0.4-20.1) %THgb Methemoglobin 0.7 (0.4-1.5) % Total Hemoglobin 15.3 (14-18) g/dL Ionized Calcium 1.2 (1.1-1.4) mmol/L O2 Delivery Device Nc O2 Liters/Min 4.0 % FiO2 36.0 % Arboriculture Instructor ID glc Sodium 134.0 (136-145) mmol/L Potassium 3.8 (3.5-5.1) mmol/L Chloride (98-107) mmol/L Carbon Dioxide (22-29) mmol/L Anion Gap (5-19) BUN (8-23) mg/dL Creatinine (0.7-1.2) mg/dL GFR Calculation (90-130) mL/min Glucose 108.0 (65-115) mg/dL Calculated Osmolal ity (285-295) mOsm/k g Lactic Acid (0.5-2.2) mmol/L Calcium (8.5-10.5) mg/dL Magnesium (1.7-2.3) mg/dL Total Bilirubin (0.15-1.2) mg/dL AST (0-40) U/L ALT (0-41) U/L Alkaline Phosphata se (40-130) IU/L Lactate Dehydrogen ase (135-225) U/L Troponin T Baselin e (0-15) ng/L C-Reactive Protein (0.0-4.9) mg/L NT-Pro-B Natriuret Pep (0-125) pg/mL Total Protein (6.6-8.7) g/dL Albumin (3.5-5.2) g/dL Globulin (1.3-4.6) g/dL Procalcitonin (0-0.5) ng/mL Influenza Type A A g (Negative) Influenza Type B A g (Negative) EKG Data^: EKG 1: Computer generated interpretation: Chest X-Ray 04/01/20 05:27 IMPRESSION: 1. Lateral left mid lung zone pulmonary infiltrate/atelectasis. Pneumonitis is difficult to exclude. Clinical correlation is recommended. 2. Mild left lateral basilar subsegmental atelectasis. 3. Hiatal hernia. Chest CTA 04/02/20 07:45
[2020-04-01] MEDS: albuterol 8 gm MDI 6 PUFF INHALATION (05:32)
[2020-04-01] MEDS: sodium chloride 0.9% 1,000 ML 999 ML IV (05:44)
[2020-04-01 05:46] LABS: Basophils % 0.3 %; Hematocrit 47.1 % (42.0-52.0); Hemoglobin 15.5 g/dL (11.7-16.6); Lymphocytes # 0.9 10^3/uL (0.8-4.8); Mean Corpuscular HGB Conc 32.9 g/dL (30.0-36.0); Mean Corpuscular Hemoglobin 28.2 pg (28.0-34.0); Mean Corpuscular Volume 85.8 fL (80-94); Mean Platelet Volume 10.6 fL (7.4-10.4); Monocytes # 0.8 10^3/uL (0.2-0.9); Monocytes % 6.7 %; Neutrophils # 9.37 10^3/uL (1.8-7.7); Neutrophils % 81.4 %; Nucleated Red Blood Cells % 0 %; Platelet Count 255 10^3/cmm (130-400); Red Blood Count 5.49 10^6/uL (4.1-5.3); Red Cell Distribution Width 14.8 % (12.1-15.1); White Blood Count 11.5 10^3/uL (4.0-10.0)
[2020-04-01 05:54] LABS: ABG PCO2 22.9 mmHg (35-45); Alveolar-Arterial Oxygen Gradi 21.4 mmHg (5-10); Base Excess ABG 0.8 mmol/L (-2.0-2.0); Blood Gas Allen Test Pos; Blood Gas Operator Identificat glc; Blood Gas Sample Site Radial, right; Blood Gas Sample Type Arterial; HCO3 ABG 20.9 mmol/L (22-26); HGB O2 Sat 92.4 % (95-100); Ionized Calcium Level - ABG 1.2 mmol/L (1.1-1.4); Methemoglobin 0.7 % (0.4-1.5); Oxygen Device NC; Oxygen Saturation ABG 93.1; PO2 ABG 62.2 mmHg (80.0-100.0); Potassium Level - ABG 3.8 mmol/L (3.5-5.0); Total Hemoglobin 15.3 g/dL (14-18)
[2020-04-01 05:56] LABS: Lactic Sepsis W/Reflex 1.8 mmol/L (0.5-2.2)
[2020-04-01 05:58] LABS: Troponin(5th) Baseline 12 ng/L (0-15)
[2020-04-01 06:06] LABS: NT Pro B Type Natriuretic Pept 360 pg/mL (0-125); Procalcitonin 0.14 ng/mL (0-0.5)
[2020-04-01 06:20] LABS: Alanine Aminotransferase 93 U/L (0-41); Alkaline Phosphatase 91 IU/L (40-130); Aspartate Amino Transferase 41 U/L (0-40); Blood Urea Nitrogen 21 mg/dL (8-23); C Reactive Protein 137.6 mg/L (0.0-4.9); Calcium 8.9 mg/dL (8.5-10.5); Carbon Dioxide 22 mmol/L (22-29); Chloride 97 mmol/L (98-107); Globulin 3.8 g/dL (1.3-4.6); Glucose 109 mg/dL (65-115); Influenza A by IFA Negative (Negative); Influenza B by IFA Negative (Negative); Osmolality Calculated 282 mOsm/kg (285-295); Sodium 134 mmol/L (136-145); Total Bilirubin 0.8 mg/dL (0.15-1.2); Total Protein 7.8 g/dL (6.6-8.7)
[2020-04-01 06:22] LABS: Anion Gap 19.4 (5-19); Lactate Dehydrogenase 344 U/L (135-225); Potassium 4.4 mmol/L (3.5-5.1)
[2020-04-01 06:29] LABS: ABG PH Result 7.57 (7.35-7.45)
[2020-04-01 06:37] LABS: Fibrinogen 697 mg/dL (174-498)
[2020-04-01] MEDS: HYDROcodone-acetaminophen 5-325 mg Tablet 2 TAB PO (06:44)
[2020-04-01 07:08] LABS: D Dimer 2.83 ug/mIFEU (0-0.59)
--- NOTE | 2020-04-01 07:29 | ECG_ITS ---
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 Measurements Intervals [place] Rate: 101 P: 42 VA: 131 QRS: -19 QRSD: 117 T: 45 QT: 325 QTc: 421 Interpretive Statements SINUS TACHYCARDIA POSSIBLE LEFT ATRIAL ENLARGEMENT [-0.1mV P WAVE IN V1/V2] INCOMPLETE RIGHT BUNDLE BRANCH BLOCK [90+ ms QRS DURATION, TERMINAL R IN V1/V2, 40+ ms S IN I/aVL/V4/V5/V6] Compared to ECG 03/25/2020 18:06:56 Incomplete right bundle-branch block now present Sinus rhythm no longer present Left anterior fascicular block no longer present Electronically Signed On 04-01-2020 13:57:53 CDT by Ashlee Jauregui M.D. [id number]
[2020-04-01] MEDS: albuterol 8 gm MDI 2 PUFF INHALATION (07:39)
[2020-04-01 07:43] LABS: Troponin 5 2HR 10.31 ng/L (0-15)
[2020-04-01 08:16] LABS: Troponin 5 2HR Delta -1.69 ABS# (0-10)
--- NOTE | 2020-04-01 09:08 | PC.NURSE ---
Pt placed in prone position per request from respiratory.
--- NOTE | 2020-04-01 09:10 | PM.HP ---
Providers/Chief Complaint Primary Care Provider: Mukesh Reyes MD Chief Complaint: covid History of Present Illness Hitesh Araya is a 65 year old male returns to the hospital after recent admission due to COVID-19 pneumonia, was discharged at that time without oxygen requirement, was feeling better, and says felt well on Monday, but subsequently started gradually getting worse again, previously more short of breath, with exertion, and recently addressed as well. Denies any chest pain or pressure. Denies any orthopnea or lower extremity swelling. In ER noted hypoxic, PO2 62.2, requiring 6 L by simple mask, wears denies underlying lung disease, previously not on oxygen. Noted respiratory alkalosis. He used to be a smoker but quit last year. In ER troponin is normal with normal delta at 2 hours. There is mild elevation of AST and ALT at 41 and 93 respectively which appears new. He denies any abdominal pain, any nausea vomiting or diarrhea. Review of Systems Const: Reports: malaise; Denies: fever(s), chills or body aches Eyes: Denies: change in vision or eye redness ENMT: Denies: throat pain, oral sores or ear or mastoid pain Card: Denies: chest pain, edema, pre-syncope or dyspnea on exertion Resp: Reports: dyspnea and non-productive cough; Denies: productive cough, change in phlegm color or hemoptysis GI: Denies: abdominal pain, nausea, vomiting, diarrhea, constipation, hematochezia or melena : Denies: flank pain, difficulty urinating, urinary frequency or hematuria Musc: Denies: back pain, joint swelling or joint redness Skin/Breast: Denies: rash, sores or new lesions Neuro: Denies: headache(s), numbness in extremities, weakness in extremities, dizziness, confusion or seizure-like activity Endo: Denies: polyuria or polydipsia Sukumar/Lymph: Denies: easy bleeding or purpura All/Imm: Denies: urticaria, throat swelling or tongue swelling Medications/Allergies Home Medications Medication Instructions Recorded Confirmed Last Taken Type valsartan 160 mg tablet 160 mg PO DAILY 09/30/19 04/01/20 03/31/20 History folic acid 1 mg tablet 1 mg PO DAILY #90 tab 10/01/19 04/01/20 03/31/20 Rx dexamethasone 6 mg PO DAILY #3 tab 03/27/20 04/01/20 03/31/20 Rx calcium carbonate [Calcium 500] 500 mg PO DAILY 04/01/20 04/01/20 03/31/20 History Allergies Allergy/AdvReac Type Severity Reaction Status Date / Time shellfish derived Allergy Intermediate SWELL Verified 03/25/20 17:54 PFSH Acute PFSH: Medical History (Updated 04/01/20 @ 09:19 by Richard Hyatt MD) Fibromyalgia Health education Hiatal hernia High risk medication use Hypertension Immunization counseling Rheumatoid arthritis Seropositive rheumatoid arthritis of multiple sites Surgical History (Updated 04/01/20 @ 09:14 by Richard Hyatt MD) Hx of cholecystectomy S/P prostatectomy Locally advanced prostate cancer status post prostatectomy Family History Other CAD (coronary artery disease) Cancer Family history of premature coronary artery disease Hypertension Stroke Denies family history of Rheumatoid arthritis Diabetes Lupus Social History Smoking and tobacco status: former smoker Quit status (tobacco): has quit using tobacco Year quit tobacco: 2019 Alcohol intake: never Lives independently: Yes Household members: spouse Housing: House Vitals/I&O/Wt Last Vital Signs Temp 98.5 F 04/01/20 07:20 Pulse 87 04/01/20 09:06 Resp 30 H 04/01/20 09:06 BP 148/85 04/01/20 09:06 Pulse Ox 94 04/01/20 09:06 03/31/20 04/01/20 04/01/20 22:59 06:59 14:59 Intake Total 1000 / 1000 Balance 1000 / 1000 Weight last 48 hrs Weight 104.326 kg Physical Exam Const: COMMON NORMALS: no acute distress and patient oriented x3 OTHER: Clammy HENMT: COMMON NORMALS: oropharynx normal Neck/C-Spine: COMMON NORMALS: no JVD Resp: COMMON NORMALS: normal respiratory effort and clear to auscultation bilaterally AUSCULTATION: diminished lung sounds Cardio: COMMON NORMALS: no JVD, regular rhythm, S1 normal heart sound present, S2 normal heart sound present and No murmurs present (Cardio) RHYTHM: regular rhythm HEART SOUNDS: S1 normal heart sound present and S2 normal heart sound present GI: COMMON NORMALS: Normal to inspection, nondistended, normoactive bowel sounds present, Soft to palpation and non-tender PALPATION: Yes Soft to palpation Extremity: COMMON NORMALS: no joint enlargement and no pedal edema Neuro: COMMON NORMALS: patient oriented x3 and moves all extremities Skin: COMMON NORMALS: no rashes or lesions noted GENERAL SKIN EXAM: no rashes or lesions noted Data : 04/01/20 05:17 04/01/20 05:17 Micro: Microbiology 04/01/20 05:18 Blood Culture - Preliminary Blood SPECIMEN COLLECTED 04/01/20 05:17 Blood Culture - Preliminary Blood SPECIMEN COLLECTED A&P Assessment and plan (1) COVID-19 determined by clinical diagnostic criteria: Severe COVID-19 illness. Initially had improved, says that he felt well on Monday, but progressively deteriorating again. Noted hypoxic with respiratory alkalosis on presentation. PO2 62.2. Requiring 6 L by simple mask in ER. States feels a little bit better. No chest pain or pressure. No signs of CHF. Chest x-ray per my interpretation appears similar to prior, without evidence of pneumonia, hyperinflated. Do suspect he may have some underlying COPD given prolonged history of smoking. Given worsening his condition, discussed with pharmacy and we will restart his remdesevir course. Will resume dexamethasone. D-dimer appears worse. Clinically no evidence of VTE at this time. Monitor, with low threshold for additional evaluation. Add breathing treatments. Continue oxygen support. Monitor in viral ICU. Lovenox for DVT prophylaxis. Status: Acute (2) Seropositive rheumatoid arthritis of multiple sites: Golimumab and methotrexate on hold. Status: Acute (3) Transaminitis: New. Mild. Monitor. Suspect related to viral illness, monitor in the setting of antiviral. Status: Acute (4) Acute respiratory failure with hypoxia: As above. COVID-19 tested positive on 03/20. Severe illness. Status: Resolved Additional A&P Information Minimal hyponatremia Attestations Medical Necessity Statement*: Admission of over 2 midnights is going to needed for assessment management of severe COVID-19 illness with hypoxic respiratory failure. Coding Level of Care Code Acute Hydrotreater Operator for [facility] Diagnoses COVID-19 determined by clinical diagnostic criteria U07.1 Seropositive rheumatoid arthritis of multiple sites M05.79 Transaminitis R74.0 Acute respiratory failure with hypoxia J96.01
--- NOTE | 2020-04-01 10:36 | PC.NURSE ---
VICU contacted for report. Staff stated they could not take report or pt until another nurse is received from ICU.
[2020-04-01 11:41] LABS: Troponin 5 6HR 7.42 ng/L (0-15); Troponin 5 6HR Delta -4.58 ng/L (0-12)
[2020-04-01] MEDS: albuterol 8 gm MDI 1 PUFF INHALATION ×4 (12:55→23:34)
[2020-04-01] MEDS: enoxaparin 40 mg/0.4 mL Syringe SUBCUT (13:09)
--- NOTE | 2020-04-01 22:38 | PC.NURSE ---
Contacted Scott Wylie re: patient's respiratory status. Patient has increased respirations, expresses shortness of breath, O2 increased to 10L via HFNC but dyspnea persists. Requested, received orders for HHFNC, relayed to RT.
[2020-04-02] VITALS (40 sets, daily range): BP systolic 84–132; BP diastolic 58–85; PULSE 65–106; RESP 15–39; TEMP 36.6–37.4; O2SAT 88–99
[2020-04-02] MEDS: LORazepam 2 mg/mL INJ 1 mL 0.5 MG IVP (00:07)
[2020-04-02] MEDS: acetaminophen 325 mg Tablet 650 MG PO (02:11)
[2020-04-02 04:26] LABS: Basophils % 0.2 %; Hematocrit 39.3 % (42.0-52.0); Lymphocytes # 1.1 10^3/uL (0.8-4.8); Lymphocytes % 11.2 %; Mean Corpuscular HGB Conc 33.1 g/dL (30.0-36.0); Mean Corpuscular Hemoglobin 27.8 pg (28.0-34.0); Mean Platelet Volume 10.2 fL (7.4-10.4); Monocytes % 9.9 %; Neutrophils # 7.77 10^3/uL (1.8-7.7); Neutrophils % 76.2 %; Nucleated Red Blood Cells % 0 %; Platelet Count 208 10^3/cmm (130-400); Red Blood Count 4.68 10^6/uL (4.1-5.3); Red Cell Distribution Width 14.8 % (12.1-15.1); White Blood Count 10.2 10^3/uL (4.0-10.0)
[2020-04-02 05:06] LABS: Alanine Aminotransferase 57 U/L (0-41); Alkaline Phosphatase 73 IU/L (40-130); Anion Gap 15.2 (5-19); Aspartate Amino Transferase 41 U/L (0-40); Blood Urea Nitrogen 20 mg/dL (8-23); Carbon Dioxide 22 mmol/L (22-29); Chloride 98 mmol/L (98-107); Globulin 3.5 g/dL (1.3-4.6); Glomerular Filtration Rate 75.2 mL/min (90-130); Glucose 108 mg/dL (65-115); Osmolality Calculated 275 mOsm/kg (285-295); Potassium 4.2 mmol/L (3.5-5.1); Sodium 131 mmol/L (136-145); Total Bilirubin 0.6 mg/dL (0.15-1.2); Total Protein 6.5 g/dL (6.6-8.7)
[2020-04-02] MEDS: dexamethasone 4 mg/mL INJ 6 MG IVP (06:24)
--- NOTE | 2020-04-02 07:45 | CT_ITS ---
WS: [id number] CTA OF THE CHEST WITH PULMONARY EMBOLISM PROTOCOL TECHNIQUE: High-resolution contrast enhanced CTA of the chest with coronal and sagittal reformatted i mages with pulmonary embolism protocol. MIP images are also reviewed. CLINICAL INFORMATION: hypoxia COMPARISON: None. DLP: 628.[address] scans at [facility] use at least one of these dose optimization techniques: automat ed exposure control; mA and/or kV adjustment per patient size (includes targeted exams where dose is matched to clinical indication); or iterative reconstruction. FINDINGS: Proximal main pulmonary arteries are normal. Filling defects consistent with pulmonary embolus in the right upper lobe segmental and subsegmental pulmonary arteries. Advanced chronic emphysematous changes. Subsegmental atelectasis in the lung bases left greater than right. Hazy groundglass infiltrates within both lungs compatible with viral pneumonia. No focal conso lidation or significant pleural fluid. Large esophageal hiatal hernia with partial intrathoracic stomach. No axillary lymphadenopathy. A few prominent anterior mediastinal and peribronchial lymph nodes presumably reactive. Adrenal glands are normal. Cholecystectomy clips. Fatty atrophy of the pancreas. Intrathoracic stomach. CT/CT angio chest PE protcl [id number] IMPRESSION: 1. Multiple small filling defects in the right upper lobe pulmonary branches c onsistent with acute pulmonary embolus. 2. Proximal main pulmonary arteries are normal. 3. A few prominent mediastinal and peribronchial lymph nodes reactive. 4. Hazy groundglass infiltrates scattered within both lungs compatible with vi ral pneumonia. 5. No focal consolidation or significant pleural fluid. 6. Large esophageal hiatal hernia with partial intrathoracic stomach. Notified Richard Hyatt MD at 04/02/2020 12:18 PM.
[2020-04-02] MEDS: levoFLOXacin 750 mg Tablet PO (09:18)
[2020-04-02] MEDS: iohexol 350 mg/mL 100 mL Btl IV (11:16)
[2020-04-02] MEDS: enoxaparin 40 mg/0.4 mL Syringe SUBCUT (11:52)
[2020-04-02] MEDS: ipratropium-albuterol 3 mL Neb INHALATION ×4 (11:55→23:58)
[2020-04-02 11:58] LABS: ABG PCO2 24.1 mmHg (35-45); ABG PH Result 7.54 (7.35-7.45); Alveolar-Arterial Oxygen Gradi 26.5 mmHg (5-10); Arterial Blood Gas Hematocrit 45.4 % (42-52); Base Excess ABG -0.3 mmol/L (-2.0-2.0); Blood Gas Allen Test Pos; Blood Gas Operator Identificat MONRO; Blood Gas Sample Site Radial, right; Blood Gas Sample Type Arterial; Carboxyhemoglobin 0.2 %THgb (0.4-20.1); HCO3 ABG 20.4 mmol/L (22-26); HGB O2 Sat 87.3 % (95-100); Ionized Calcium Level - ABG 1.1 mmol/L (1.1-1.4); Methemoglobin 0.6 % (0.4-1.5); Oxygen Device NC; PO2 ABG 49.9 mmHg (80.0-100.0); Total Hemoglobin 14.8 g/dL (14-18)
--- NOTE | 2020-04-02 13:04 | PC.NURSE ---
MD in unit. discussed my concern for patient and his dyspnea. yes, 02 is okay for now but patient is anxious and his ABG when he first came in was already bad. I asked for a repeat ABG and it came back worse. (see results on lab results). discussed with MD to transfer patient out to another hospital for higher level of care. MD stated to watch closely and see how he does and if he desats or worsens then we will transfer him. Although I disagree and think the patient should be transferred as soon as possible. I made this very clear to MD.
[2020-04-02] MEDS: enoxaparin 80 mg/0.8 mL Syringe 60 MG SUBCUT (13:10)
--- NOTE | 2020-04-02 13:48 | P.PN_ITS ---
Subjective Subjective: Interval history: He was more short of breath overnight, but feeling a bit better during visit after returning back to his room from CT. Denies chest pain or pressure. No headache, no nausea vomiting or diarrhea. No abdominal pain. Vitals/I&O/Wt Last Vital Signs Temp 97.8 F 04/02/20 12:00 Pulse 106 H 04/02/20 12:30 Resp 20 H 04/02/20 12:30 BP 123/85 04/02/20 12:00 Pulse Ox 93 04/02/20 12:30 04/01/20 04/02/20 04/02/20 22:59 06:59 14:59 Intake Total 285 / 385 575 / 575 Output Total 1225 / 1225 0 / 1225 1250 / 1250 Balance -940 / -840 0 / -840 -675 / -675 Weight last 48 hrs Weight 103.873 kg Weight 104.326 kg Physical Exam Const: COMMON NORMALS: no acute distress and patient oriented x3 OTHER: Sitting up in bed. Speaks in full senses, but does get tired easily. Gets short of breath with exertion. HENMT: COMMON NORMALS: oropharynx normal Neck/C-Spine: COMMON NORMALS: no JVD Resp: COMMON NORMALS: normal respiratory effort and clear to auscultation bilaterally AUSCULTATION: clear to auscultation bilaterally, rales (Minimal rales on the right) and diminished lung sounds (But air entry actually sounds better today.) Cardio: COMMON NORMALS: no JVD, regular rhythm, S1 normal heart sound present, S2 normal heart sound present and No murmurs present (Cardio) RHYTHM: regular rhythm HEART SOUNDS: S1 normal heart sound present and S2 normal heart sound present GI: COMMON NORMALS: Normal to inspection, nondistended, normoactive bowel sounds present, Soft to palpation and non-tender PALPATION: Yes Soft to palpation Extremity: COMMON NORMALS: no joint enlargement and no pedal edema Neuro: COMMON NORMALS: patient oriented x3 and moves all extremities Skin: COMMON NORMALS: no rashes or lesions noted GENERAL SKIN EXAM: no rashes or lesions noted Data : 04/02/20 04:10 04/02/20 04:10 Micro: Microbiology 04/01/20 05:17 Blood Culture - Preliminary Blood NEGATIVE TO DATE 04/01/20 05:18 Blood Culture - Preliminary Blood NEGATIVE TO DATE A&P Assessment and plan (1) COVID-19 determined by clinical diagnostic criteria: Last night oxygenation worsened, had to be started on high flow cannula, today breathing appears to be stabilized somewhat at 30L. He does get tired quite easily, out of breath with exertion. Noted some respite alkalosis on presentation, due to worsening hypoxia by CTA today, active multiple small filling defects in right upper lobe pulmonary branches consistent with PE. Normal proximal main pulmonary arteries. Blood pressure has been stable. Mild tachycardia cardia. Therapeutic anticoagulation. As he has been on high flow switched over to DuoNeb nebulization, budesonide. Added Levaquin empirically for possible superimposed bacterial infection. Check urine bacterial antigens. MRSA PCR. Sputum culture. Incentive spirometry, flutter valve. Severe COVID-19 illness. No chest pain or pressure. No signs of CHF. Chest x-ray per my interpretation appears similar to prior, without evidence of pneumonia, hyperinflated. Do suspect he may have some underlying COPD given prolonged history of smoking. Prescription with ER physician yesterday pharmacy made phone calls to [facility], and recommendation was if resuming remdesevir not to repeat loading dose. Continue oxygen support. Monitor in viral ICU. Status: Acute (2) Seropositive rheumatoid arthritis of multiple sites: Golimumab and methotrexate on hold. Status: Acute (3) Transaminitis: New. Mild. With improvement. Monitor. Suspect related to viral illness, monitor in the setting of antiviral. Status: Acute (4) Acute respiratory failure with hypoxia: As above. COVID-19 tested positive on 03/20. Severe illness. Status: Resolved Additional A&P Information Minimal hyponatremia: Today not 131. May be related to acute pulmonary condition. At this time continue regular diet. Monitor sodium. Attestations Medical Necessity Statement*: Continue admission for assessment management of acute respite failure, severe COVID-19 pneumonia. Coding Level of Care Code Acute Online Communications Specialist for [facility] Brenda Diagnoses COVID-19 determined by clinical diagnostic criteria U07.1 Seropositive rheumatoid arthritis of multiple sites M05.79 Transaminitis R74.0 Acute respiratory failure with hypoxia J96.01
[2020-04-02] MEDS: ALPRAZolam 0.25 mg Tablet PO (13:56)
[2020-04-02] MEDS: budesonide 0.5 mg/2 mL Neb INHALATION (19:35)
[2020-04-02] MEDS: enoxaparin 100 mg/mL Syringe SUBCUT (23:58)
[2020-04-03] VITALS (33 sets, daily range): BP systolic 91–128; BP diastolic 37–77; PULSE 63–111; RESP 14–32; TEMP 36.6–37.2; O2SAT 87–98
[2020-04-03] MEDS: ipratropium-albuterol 3 mL Neb INHALATION ×6 (04:45→23:40)
[2020-04-03 05:52] LABS: Basophils % 0.3 %; Hematocrit 42.7 % (42.0-52.0); Hemoglobin 14.3 g/dL (11.7-16.6); Lymphocytes # 1.3 10^3/uL (0.8-4.8); Lymphocytes % 17.2 %; Mean Corpuscular HGB Conc 33.5 g/dL (30.0-36.0); Mean Corpuscular Hemoglobin 27.9 pg (28.0-34.0); Mean Corpuscular Volume 83.4 fL (80-94); Monocytes % 13.8 %; Neutrophils # 4.91 10^3/uL (1.8-7.7); Neutrophils % 65.6 %; Nucleated Red Blood Cells % 0 %; Platelet Count 204 10^3/cmm (130-400); Red Blood Count 5.12 10^6/uL (4.1-5.3); Red Cell Distribution Width 14.9 % (12.1-15.1); White Blood Count 7.5 10^3/uL (4.0-10.0)
[2020-04-03 06:00] LABS: C Reactive Protein 113.8 mg/L (0.0-4.9)
[2020-04-03 06:01] LABS: Alanine Aminotransferase 65 U/L (0-41); Albumin Level 3.2 g/dL (3.5-5.2); Alkaline Phosphatase 71 IU/L (40-130); Anion Gap 17.8 (5-19); Aspartate Amino Transferase 44 U/L (0-40); Blood Urea Nitrogen 20 mg/dL (8-23); Calcium 8.9 mg/dL (8.5-10.5); Carbon Dioxide 20 mmol/L (22-29); Chloride 98 mmol/L (98-107); Glomerular Filtration Rate 113.5 mL/min (90-130); Glucose 137 mg/dL (65-115); Osmolality Calculated 279 mOsm/kg (285-295); Potassium 3.8 mmol/L (3.5-5.1); Sodium 132 mmol/L (136-145); Total Bilirubin 0.5 mg/dL (0.15-1.2); Total Protein 7.2 g/dL (6.6-8.7)
[2020-04-03] MEDS: dexamethasone 4 mg/mL INJ 6 MG IVP (06:23)
[2020-04-03 06:51] LABS: D Dimer 2.71 ug/mIFEU (0-0.59)
[2020-04-03 07:41] LABS: Slide Review Slide Review Perform
[2020-04-03] MEDS: budesonide 0.5 mg/2 mL Neb INHALATION ×2 (08:13→19:26)
[2020-04-03] MEDS: levoFLOXacin 750 mg Tablet PO (08:13)
[2020-04-03] MEDS: ALPRAZolam 0.25 mg Tablet PO ×2 (11:22→22:06)
[2020-04-03] MEDS: enoxaparin 100 mg/mL Syringe SUBCUT ×2 (12:45→23:40)
--- NOTE | 2020-04-03 16:55 | P.PN_ITS ---
Subjective Subjective: Interval history: It appears overnight his FiO2 was increased to 100% on 30 L. I did not see that he was desaturating, prescription with RT was to somewhat decrease his work of breathing a bit, and also because he does not tolerate high flow very well with headache/pressure in his nose. He himself this afternoon says he is actually feeling a little bit better. He does get out of breath easily with activity. He is self pronating. Denies chest pain. No headache. No nausea vomiting or diarrhea. Vitals/I&O/Wt Last Vital Signs Temp 99.0 F 04/03/20 12:00 Pulse 79 04/03/20 16:13 Resp 16 04/03/20 16:13 BP 103/77 04/03/20 16:00 Pulse Ox 93 04/03/20 16:13 04/03/20 04/03/20 04/03/20 06:59 14:59 22:59 Intake Total 0 / 935 360 / 360 Output Total 120 / 120 Balance 0 / -1240 240 / 240 Weight last 48 hrs Weight 103.873 kg Weight 103.873 kg Physical Exam Const: COMMON NORMALS: no acute distress and patient oriented x3 OTHER: Pronating at a time I entered the room. Repositions himself to sit up. Saturation 98%. On sitting up at 97%. At the end of my visit stabilized at 94% while sitting up. HENMT: COMMON NORMALS: oropharynx normal Neck/C-Spine: COMMON NORMALS: no JVD Resp: COMMON NORMALS: normal respiratory effort and clear to auscultation bilaterally AUSCULTATION: clear to auscultation bilaterally, no rales and diminished lung sounds (Minimally) Cardio: COMMON NORMALS: no JVD, regular rhythm, S1 normal heart sound present, S2 normal heart sound present and No murmurs present (Cardio) RHYTHM: regular rhythm HEART SOUNDS: S1 normal heart sound present and S2 normal heart sound present GI: COMMON NORMALS: Normal to inspection, nondistended, normoactive bowel sounds present, Soft to palpation and non-tender PALPATION: Yes Soft to palpation Extremity: COMMON NORMALS: no joint enlargement and no pedal edema Neuro: COMMON NORMALS: patient oriented x3 and moves all extremities Skin: COMMON NORMALS: no rashes or lesions noted GENERAL SKIN EXAM: no rashes or lesions noted Data : 04/03/20 04:40 04/03/20 04:40 Micro: Microbiology 04/02/20 10:55 MRSA Culture - Final Nose 04/02/20 23:57 Legionella Urinary Antigen - Final Urine,Voided Bacterial Antigens - Final A&P Assessment and plan (1) COVID-19 determined by clinical diagnostic criteria: Discussed with him and his . Overnight appears FiO2 of has increased to 100%. I did not see desaturation, but appears he was done proactively to try to decrease his work of breathing somewhat and because he cannot tolerate well flow much above 30 L. Discussed with him and his consideration of perhaps seeking transfer to higher level facility. He does state that this afternoon he is feeling little bit better. And in fact has weaned down to 60% FiO2 30 L. He is self-propelling, and able to transition between positions by himself. Does get easily short of breath. Discussed again with him and his possibility of needing intubation. At this time per discussion we will monitor as he appears has reached a plateau with further assessment in the morning, if continues to improve we will continue supportive care here, otherwise discussed would try to transfer to a higher level facility for possible convalescent plasma or other more experimental treatments. Continue room to severe. Decadron. Anticoagulation for PE. Continue to prone as tolerating. Continue breathing treatments, inhaled steroid. Levaquin empirically. Incentive spirometry. Check urine bacterial antigens negative. MRSA PCR negative. Sputum culture could not be obtained. Severe COVID-19 illness. Hypoxic respiratory failure. No chest pain or pressure. No signs of CHF. Suspect he may have some underlying COPD given prolonged history of smoking. Status: Acute (2) Seropositive rheumatoid arthritis of multiple sites: Golimumab and methotrexate on hold. Status: Acute (3) Transaminitis: New. Mild. With improvement. Monitor. Suspect related to viral illness, monitor in the setting of antiviral. Status: Acute (4) Acute respiratory failure with hypoxia: As above. COVID-19 tested positive on 03/20. Severe illness. Status: Resolved Additional A&P Information Minimal hyponatremia: 132. Suspect related to acute pulmonary condition. Continue regular diet. Monitor sodium. Attestations Medical Necessity Statement*: Continue admission for severe COVID-19 pneumonia, PE, respiratory failure. Coding Level of Care Code Acute Registered Nurse Maternity for [facility] Fwd Exam Comprehensive Diagnoses COVID-19 determined by clinical diagnostic criteria U07.1 Seropositive rheumatoid arthritis of multiple sites M05.79 Transaminitis R74.0 Acute respiratory failure with hypoxia J96.01
[2020-04-03] MEDS: acetaminophen 325 mg Tablet 650 MG PO (22:05)
[2020-04-03 22:35] LABS: 25 Hydroxy Vitamin D 46 ng/mL (30-100)
--- NOTE | 2020-04-03 23:41 | PC.NURSE ---
RT reduced FiO2 to 50%. Current SpO2 97%. Will continue to monitor.
[2020-04-04] VITALS (30 sets, daily range): BP systolic 92–133; BP diastolic 53–100; PULSE 66–109; RESP 11–34; TEMP 36.6–36.8; O2SAT 80–98
--- NOTE | 2020-04-04 00:20 | PC.NURSE ---
RT decreased patient's FiO2 to 45 % on 30 L. Patient's O2 sat remains stable. Will continue to monitor.
[2020-04-04 04:36] LABS: ABG PH Result 7.46 (7.35-7.45); Alveolar-Arterial Oxygen Gradi 27.2 mmHg (5-10); Arterial Blood Gas Hematocrit 44.8 % (42-52); Base Excess ABG -1.6 mmol/L (-2.0-2.0); Blood Gas Allen Test Pos; Blood Gas Sample Site Brachial, right; Blood Gas Sample Type Arterial; Carboxyhemoglobin 0.4 %THgb (0.4-20.1); HCO3 ABG 21.1 mmol/L (22-26); HGB O2 Sat 93.9 % (95-100); Ionized Calcium Level - ABG 1.3 mmol/L (1.1-1.4); Methemoglobin 0.8 % (0.4-1.5); Oxygen Device NC; Oxygen Saturation ABG 95.1; PO2 ABG 72.1 mmHg (80.0-100.0); Potassium Level - ABG 3.8 mmol/L (3.5-5.0); Total Hemoglobin 14.6 g/dL (14-18)
[2020-04-04] MEDS: ipratropium-albuterol 3 mL Neb INHALATION ×5 (04:50→20:06)
--- NOTE | 2020-04-04 05:07 | PC.NURSE ---
Patient states that he fells like he is breathing better when talking. Patient states that he slept very well tonight.
--- NOTE | 2020-04-04 05:08 | PC.NURSE ---
Today's am labs were drawn from this IV. IV was flushed after blood was obtained.
[2020-04-04] MEDS: dexamethasone 4 mg/mL INJ 6 MG IVP (06:07)
[2020-04-04 06:19] LABS: D Dimer 0.83 ug/mIFEU (0-0.59)
[2020-04-04 06:47] LABS: Basophils % 0.3 %; Hematocrit 42.6 % (42.0-52.0); Lymphocytes # 1.4 10^3/uL (0.8-4.8); Lymphocytes % 18.6 %; Mean Corpuscular HGB Conc 32.9 g/dL (30.0-36.0); Mean Corpuscular Hemoglobin 27.7 pg (28.0-34.0); Mean Corpuscular Volume 84.2 fL (80-94); Mean Platelet Volume 11.4 fL (7.4-10.4); Monocytes # 0.7 10^3/uL (0.2-0.9); Monocytes % 9.6 %; Neutrophils # 5.16 10^3/uL (1.8-7.7); Neutrophils % 67.2 %; Nucleated Red Blood Cells % 0 %; Platelet Count 221 10^3/cmm (130-400); Red Blood Count 5.06 10^6/uL (4.1-5.3); Red Cell Distribution Width 14.9 % (12.1-15.1); White Blood Count 7.7 10^3/uL (4.0-10.0)
[2020-04-04] MEDS: budesonide 0.5 mg/2 mL Neb INHALATION ×2 (08:20→20:06)
[2020-04-04] MEDS: levoFLOXacin 750 mg Tablet PO (08:20)
[2020-04-04 10:11] LABS: Alanine Aminotransferase 68 U/L (0-41); Albumin Level 3.4 g/dL (3.5-5.2); Alkaline Phosphatase 73 IU/L (40-130); Aspartate Amino Transferase 41 U/L (0-40); Blood Urea Nitrogen 21 mg/dL (8-23); Calcium 9.1 mg/dL (8.5-10.5); Carbon Dioxide 21 mmol/L (22-29); Chloride 100 mmol/L (98-107); Globulin 3.8 g/dL (1.3-4.6); Glucose 154 mg/dL (65-115); Osmolality Calculated 288 mOsm/kg (285-295); Sodium 136 mmol/L (136-145); Total Bilirubin 0.5 mg/dL (0.15-1.2); Total Protein 7.2 g/dL (6.6-8.7)
--- NOTE | 2020-04-04 10:40 | PC.NURSE ---
Called Dr. Chavez to updated on patient's transfer to [facility]. Updated on patient condition et transfer needs. Will proceed with transfer to [facility]
[2020-04-04] MEDS: enoxaparin 100 mg/mL Syringe SUBCUT ×2 (11:31→23:22)
--- NOTE | 2020-04-04 11:37 | PC.SOCIAL ---
IMM Update Pg. 2 of IMM updated with patient via phone.
--- NOTE | 2020-04-04 18:15 | PM.PN ---
Subjective Subjective: Interval history: He is doing about the same. Self pronating. When I am coming in switches over to sit up in bed. Overall feels that perhaps he is a little bit stronger today. Denies chest pain. No nausea vomiting, diarrhea, headache. He feels encouraged. Given protracted course if there was a bed opening at or [facility] he would be interested in pursuing transfer to see if there are some additional investigational therapies available. Otherwise he is okay staying here to continue current treatment. Vitals/I&O/Wt Last Vital Signs Temp 98.2 F 04/04/20 08:00 Pulse 86 04/04/20 16:10 Resp 19 H 04/04/20 16:10 BP 116/75 04/04/20 13:00 Pulse Ox 95 04/04/20 16:10 04/04/20 04/04/20 04/04/20 06:59 14:59 22:59 Intake Total 600 / 600 Output Total 900 / 900 Balance -300 / -300 Weight last 48 hrs Weight 103.873 kg Physical Exam Const: COMMON NORMALS: no acute distress and patient oriented x3 OTHER: Pronating at a time I entered the room. Repositions himself to sit up. Sats 94%. HENMT: COMMON NORMALS: oropharynx normal Neck/C-Spine: COMMON NORMALS: no JVD Resp: COMMON NORMALS: normal respiratory effort and clear to auscultation bilaterally AUSCULTATION: clear to auscultation bilaterally, no rales, no rhonchi and no wheezes Cardio: COMMON NORMALS: no JVD, regular rhythm, S1 normal heart sound present, S2 normal heart sound present and No murmurs present (Cardio) RHYTHM: regular rhythm HEART SOUNDS: S1 normal heart sound present and S2 normal heart sound present GI: COMMON NORMALS: Normal to inspection, nondistended, normoactive bowel sounds present, Soft to palpation and non-tender PALPATION: Yes Soft to palpation Extremity: COMMON NORMALS: no joint enlargement and no pedal edema Neuro: COMMON NORMALS: patient oriented x3 and moves all extremities Skin: COMMON NORMALS: no rashes or lesions noted GENERAL SKIN EXAM: no rashes or lesions noted Data : 04/04/20 04:30 04/04/20 09:20 Micro: Microbiology 04/02/20 10:55 MRSA Culture - Final Nose A&P Assessment and plan (1) COVID-19 determined by clinical diagnostic criteria: Weak, fatigues easily, but today perhaps feeling slightly better. We are awaiting whether a bed may open at or [facility] given persistent hypoxia for additional experimental treatment. Otherwise he is okay to continue current care here. Discussed with him some improvement in d-dimer and CRP. Continue remdesivir. Decadron. Anticoagulation for PE. Continue to prone as tolerating. Continue breathing treatments, inhaled steroid. Levaquin empirically. Incentive spirometry. Check urine bacterial antigens negative. MRSA PCR negative. Sputum culture could not be obtained. Severe COVID-19 illness. Hypoxic respiratory failure. No chest pain or pressure. No signs of CHF. Suspect he may have some underlying COPD given prolonged history of smoking. Status: Acute (2) Seropositive rheumatoid arthritis of multiple sites: Golimumab and methotrexate on hold. Status: Acute (3) Transaminitis: New. Mild. Stabilized. Monitor. Suspect related to viral illness, monitor in the setting of antiviral Tx. Status: Acute (4) Acute respiratory failure with hypoxia: As above. COVID-19 tested positive on 03/20. Severe illness. Status: Resolved Additional A&P Information Minimal hyponatremia: Improved. Suspect related to acute pulmonary condition. Continue regular diet. Monitor sodium. Attestations Medical Necessity Statement*: Continue management of respiratory failure secondary to severe COVID-19 pneumonia, PE. Coding Level of Care Code Acute Flying Shear Operator for [facility] Brenda Diagnoses COVID-19 determined by clinical diagnostic criteria U07.1 Seropositive rheumatoid arthritis of multiple sites M05.79 Transaminitis R74.0 Acute respiratory failure with hypoxia J96.01
--- NOTE | 2020-04-04 21:35 | PC.NURSE ---
At time of assessment, patient is currently supine with HOB at 45 degrees. Patient does get short of breath with movement et while speaking. Otherwise patient's respiratory effort is non-labored.
--- NOTE | 2020-04-04 22:43 | P.EN_ITS ---
Event Note Event Note: Patient has been accepted at [facility] for experimental drug trial for severe hypoxic respiratory failure COVID-19 pneumonia, accepting physician name Dr. bAel He will be transferred by air. Currently he is on 30 L 40% high flow oxygen Blood pressure 125/87, respiratory rate 20-24, pulse 96,
--- NOTE | 2020-04-04 22:43 | PM.EVENT ---
Event Note Event Note: Patient has been accepted at [facility] for experimental drug trial for severe hypoxic respiratory failure COVID-19 pneumonia, accepting physician name Dr. Abel He will be transferred by air. Currently he is on 30 L 40% high flow oxygen Blood pressure 125/87, respiratory rate 20-24, pulse 96,
[2020-04-04] MEDS: acetaminophen 325 mg Tablet 650 MG PO (23:21)
[2020-04-04] MEDS: ALPRAZolam 0.25 mg Tablet PO (23:21)
--- NOTE | 2020-04-04 23:30 | PC.NURSE ---
Called report to Phan at [facility]. Provided Phan with patient's course to stay, lab values, medication history et current vital signs. Answered all questions. Will notify ICU at [place] whenever patient is leaving.
[2020-04-05] VITALS: BP 103/78; PULSE 71; RESP 16; O2SAT 96
--- NOTE | 2020-04-05 00:05 | PC.NURSE ---
Switched patient to 100% NRB for transfer. Patient's O2 stat remains in upper 90s. Will continue to monitor.
--- NOTE | 2020-04-05 00:30 | PC.NURSE ---
All patient's belongings (cell phone, cell phone dry pan charger, glasses et red bag) were collected et sent with patient et flight crew.
--- NOTE | 2020-04-05 00:57 | PC.NURSE ---
Patient report given to [facility] with [facility]. All required paper work given to flight crew.Patient on 100% NRB for transfer. Patient ambulated to stretcher. All belongings with patient.Patient's et daughter were able to see patient prior to loading into helicopter. Family updated on patient's location at [place] et contact info. All patient belongings were loaded into helicopter et patient transferred to [facility].
[2020-04-05 01:00] VITALS: BP 103/78
--- NOTE | 2020-04-05 07:32 | P.TS_ITS ---
Transfer Summary Providers Date of Admission: 04/01/20 06:46 Date of Discharge: 04/05/20 Attending Provider at Admission: Richard Hyatt Attending Provider at Transfer: Richard Hyatt Primary Care Provider: Mukesh Reyes MD Anticipated Date of Transfer: Anticipated date of transfer: 04/05/20 Receiving Facility & Provider: Receiving Provider: [] Receiving facility: [] Diagnoses at Discharge Discharge Diagnosis (1) COVID-19 determined by clinical diagnostic criteria: Status: Acute (2) Pulmonary emboli: Status: Acute (3) Seropositive rheumatoid arthritis of multiple sites: Status: Acute (4) Transaminitis: Status: Acute (5) Acute respiratory failure with hypoxia: Status: Resolved Reason for Visit Reason for Visit: covid Hospital Course Hospital Course: Very pleasant 65-year-old gentleman with history of rheumatoid arthritis on methotrexate and golimumab was found positive for coronavirus on 03/20, by 03/25 was getting dyspneic, occasionally saturation down to 89%, requiring several liters of oxygen. Was admitted, received remdesevir and dexamethasone, VTE Lovenox prophylaxis supportive care and oxygen support. Methotrexate and golimumab held. By 03/27 has been feeling much better, off oxygen, and so was able to discharge home. Did not qualify for oxygen on home O2 evaluation at discharge. [place] all right for about a day, subsequently started becoming more short of breath, coughing, easily fatigued. Return to the hospital on 04/01 with noted hypoxia, requiring 8 L of oxygen by oxymask initially, but with progressive hypoxia in the hospital eventually requiring high flow cannula. Was restarted on remdesivir, dexamethasone, Lovenox on presentation, but Lovenox dose had to be increased to full anticoagulation after on 04/02 found to have multiple filling defects in the right upper lobe due to multiple small PE. Also received supportive treatments with duo nebs, budesonide nebs given history of smoking, hyperinflation, decreased air entry on presentation, and suspected possibly undiagnosed COPD. Despite resumption of treatment with antiviral, steroids, self pronating and other supportive care was persistently hypoxic, very easily fatigable. FiO2 requirement persistently around 60%. Due to persistent severe illness, respiratory failure, and lack of additional more experimental treatments available here, prescription with patient and family they would like to see if he would qualify for additional studies, and so after a brief period on waiting list was currently excepted for additional assessment and care over at [facility] where he went early this morning. Physical Exam Const: OTHER: Please see event note at the time of transfer. TS Data Data Completed and Pending: Completed Studies During Hospitalization Category Date Time Status CT angio chest PE protcl [id number] Rout ine Cat Scan 04/02/20 07:45 Completed XR chest 1V ken ble [id number] Stat Exams 04/01/20 05:27 Completed Pending at discharge Category Date Time Status Blood Culture Sta t Lab 04/01/20 05:18 Results C Reactive Protei n AM LABS Lab 04/05/20 04:00 Ordered Complete Blood Co unt w/Auto AM LABS Lab 04/05/20 04:00 Ordered Comprehensive Met abolic Panel AM LA BS Lab 04/05/20 04:00 Ordered Labs from last 24 hours 04/04/20 04/04/20 09:20 07:25 Sodium 136 Cancelled Potassium 4.0 Cancelled Chloride 100 Cancelled Carbon Dioxide 21 L Cancelled Anion Gap 19.0 Cancelled BUN 21 Cancelled Creatinine 0.9 Cancelled GFR Calculation 85.0 L Cancelled Glucose 154 H Cancelled Calculated Osmolal ity 288 Cancelled Calcium 9.1 Cancelled Total Bilirubin 0.5 Cancelled AST 41 H Cancelled ALT 68 H Cancelled Alkaline Phosphata se 73 Cancelled C-Reactive Protein 47.0 H Cancelled Total Protein 7.2 Cancelled Albumin 3.4 L Cancelled Globulin 3.8 Cancelled Vitals: Last Vital Signs Temp 98.1 F 04/04/20 20:00 Pulse 71 04/05/20 00:00 Resp 16 04/05/20 00:00 BP 103/78 04/05/20 01:00 Pulse Ox 96 04/05/20 00:00 TS Medications Medications Home Medications valsartan 160 mg tablet 160 mg PO DAILY 09/30/19 [History Confirmed 04/01/20] folic acid 1 mg tablet 1 mg PO DAILY #90 tab 10/01/19 [Rx Confirmed 04/01/20] dexamethasone 6 mg PO DAILY #3 tab 03/27/20 [Rx Confirmed 04/01/20] calcium carbonate [Calcium 500] 500 mg PO DAILY 04/01/20 [History Confirmed 04/01/20] Discharge Plan Discharge Patient Disposition: Xfer Other Condition: Stable Prescriptions: No Action valsartan [Diovan] 160 mg tablet 160 mg PO DAILY RF: 0 folic acid 1 mg tablet 1 mg PO DAILY Qty: 90 RF: 3 dexamethasone 4 mg Tablet 6 mg PO DAILY Qty: 3 RF: 0 Calcium 500 500 mg calcium (1,250 mg) Tablet 500 mg PO DAILY RF: 0 Discharge Orders: Transfer Out of Facility (Order); Ordered 04/04/20 Ordered By: Ivis Chavez Discharge Date/Time: 04/05/20 00:55 Transfer Attestations Time Spent in Transfer Care*: greater than 30 min Quality Metrics Clinical Quality Measures: During this hospital stay, did patient experience: None Coding Level of Care Code Acute Flight Test Mechanic for g Fwd Diagnoses COVID-19 determined by clinical diagnostic criteria U07.1 Pulmonary emboli I26.99 Seropositive rheumatoid arthritis of multiple sites M05.79 Transaminitis R74.0 Acute respiratory failure with hypoxia J96.01
== END 2020-04-05 00:55 | disposition short-term general hospital (02) | DRG 177 ==
LOC: ER 06:18 → ICU 11:28
PROVIDERS: Emergency Medicine; Internal Medicine; Admitting Provider Internal Medicine; Emergency Provider Family Medicine; PCP Family Medicine; Visit Provider Internal Medicine
DX: U07.1 COVID-19 (principal); J96.01 Acute respiratory failure with hypoxia; I26.99 Other pulmonary embolism without acute cor pulmonale; J12.89 Other viral pneumonia; E87.1 Hypo-osmolality and hyponatremia; E87.3 Alkalosis; M05.79 Rheumatoid arthritis with rheumatoid factor of multiple sites without organ or systems involvement; M79.7 Fibromyalgia; J44.9 Chronic obstructive pulmonary disease, unspecified; I10 Essential (primary) hypertension; Z87.891 Personal history of nicotine dependence
CPT/HCPCS: 12345; 36415; 36600; 71045; 71275; 80051; 80053; 82306; 82810; 83605; 83615; 83735; 83880; 83986; 84145; 84484; 85025; 85378; 85384; 85610; 86140; 86403; 87040; 87449; 87641; 87804; 93005; 94640; 94664; 96372; 96375; 99284; J1100; J1650; J2060; J3535; J7030; J7626; Q9967

== ENCOUNTER 2020-04-18 00:17 | Inpatient (IN) | payer OTHER, SELFPAY ==
[2020-04-18] VITALS (33 sets, daily range): BP systolic 108–142; BP diastolic 74–110; PULSE 65–106; RESP 8–37; TEMP 36.5–36.9; O2SAT 91–99; BMI 26.2
--- NOTE | 2020-04-18 00:32 | XRR_ITS ---
PROCEDURE INFORMATION: Exam: XR Chest, 1 View Exam date and time: 04/18/2020 12:38 AM Age: 65 years old Clinical indication: Shortness of breath; Patient HX: Recovered covid; Additional info: Dyspnea TECHNIQUE: Imaging protocol: XR of the chest Views: 1 view. COMPARISON: CR XR chest 1V portable [id number] 04/01/2020 5:39 AM FINDINGS: Lungs: The left lung is largely collapsed. Mild interstitial opacities in the right lung base. Bleb in the collapsed left lung. Pleural space: Massive left pneumothorax with slight mediastinal shift to the right. Heart/Mediastinum: Unremarkable. No cardiomegaly. Bones/joints: No acute fracture. XR/XR chest 1V portable [id number] IMPRESSION: 1. Massive left pneumothorax with slight mediastinal shift to the right. 2. The left lung is largely collapsed. 3. Mild interstitial opacities in the right lung base.
--- NOTE | 2020-04-18 00:32 | W.ED.SOB ---
HPI - SOB/Dyspnea General: Chief Complaint: Shortness of Breath/Dyspnea Stated Complaint: SOB/covid recovered Time Seen by Provider: 04/18/20 00:30 Source: patient and family Mode of arrival: ambulatory Limitations: no limitations History of Present Illness: HPI Narrative: Hitesh is a nice 65-year-old male who comes in complaining of shortness of breath. Please see the patient's last hospital discharge and records from [facility] as I have requested these for this note. Patient has had a long prolonged course of COVID-19 viral pneumonitis. He was admitted and discharged here to be readmitted later and ultimately transferred to [facility] for convalescent plasma. Patient's been home just a few days but was placed on oxygen Monday by his doctor for shortness of breath. He became more short of breath the day and states that he cannot carry out his daily activities with his shortness of breath. He denies any fever, chest pain, leg swelling or edema or increased cough. He denies any other complaints or concerns. Associated symptoms: Deny abdominal pain, chest congestion, chest pain, diaphoresis, dizziness, extremity pain, fever(s), hemoptysis, lightheadedness, nausea, orthopnea, palpitations, syncope or vomiting Review of Systems Const: Denies: fever(s), chills, body aches, fatigue, malaise or diaphoresis Eyes: Denies: change in vision, blurry vision, photophobia, eye discomfort, eye discharge, eye redness or yellow eyes ENMT: Denies: throat pain, odynophagia, hoarseness, swelling of lips/tongue, ear or mastoid pain, ear discharge, change in hearing or nasal discharge Card: Denies: chest pain, palpitations, irregular heart rhythm, edema, lightheadedness, syncope, pre-syncope, dyspnea on exertion or orthopnea Resp: Reports: dyspnea; Denies: productive cough, non-productive cough, wheezing, hemoptysis or chest congestion GI: Denies: abdominal pain, nausea, vomiting, hematemesis, coffee ground emesis, heartburn, diarrhea, constipation, GI cramping, hematochezia or melena : Denies: flank pain, dysuria, urinary frequency, urinary urgency or hematuria Musc: Denies: neck pain, back pain, extremity pain, extremity swelling, joint pain, joint swelling, joint redness, joint warmth or joint stiffness Skin/Breast: Denies: rash, pruritus, erythema, skin pain or skin tenderness Neuro: Denies: headache(s), numbness in extremities, weakness in extremities, sensory changes, lack of coordination, difficulty walking, dizziness, vertigo, confusion, Slurred speech present or seizure-like activity Sukumar/Lymph: Denies: easy bruising, easy bleeding, petechiae, purpura or enlarged lymph nodes All/Imm: Denies: urticaria, throat swelling, tongue swelling, facial swelling or acute wheezing PFSH ED PFSH: Medical History (Updated 04/18/20 @ 04:38 by Justina Nguyen) Fibromyalgia Health education Hiatal hernia High risk medication use Hypertension Immunization counseling Rheumatoid arthritis Seropositive rheumatoid arthritis of multiple sites Surgical History Hx of cholecystectomy S/P prostatectomy Locally advanced prostate cancer status post prostatectomy Family History Other CAD (coronary artery disease) Cancer Family history of premature coronary artery disease Hypertension Stroke Denies family history of Rheumatoid arthritis Diabetes Lupus Social History Smoking and tobacco status: former smoker Quit status (tobacco): has quit using tobacco Year quit tobacco: 2019 Alcohol intake: never Lives independently: Yes Household members: spouse Housing: House Physical Exam Const: COMMON NORMALS: no acute distress, patient oriented x3, no limitations and alert GENERAL APPEARANCE: cooperative HENMT: COMMON NORMALS: normocephalic, atraumatic, external ears normal, EAC's normal and Normal external nose present HEAD & SCALP: normal to inspection, normocephalic and atraumatic FACE & SINUS: normal facial exam and face symmetric NOSE: Normal external nose present and Normal nares present EXTERNAL EAR: Yes external ears normal EXTERNAL AUDITORY CANAL: EAC's normal MOUTH: Normal oral and palatal mucosa present, lip normal and tongue normal Eye: COMMON NORMALS: Equal, round and reactive pupils present and conjunctivae normal GENERAL EYE: appearance normal, both eyes and all related structures ALIGNMENT: Yes alignment normal PERIORBITAL: periorbital findings normal EYELID: eyelids normal CONJUNCTIVA: Yes conjunctivae normal SCLERA: sclerae normal PUPIL: Yes Equal, round and reactive pupils present Neck/C-Spine: COMMON NORMALS: full ROM, no lymphadenopathy, supple, no meningeal signs and no JVD GENERAL: Yes normal visual inspection and Yes trachea midline Chest: COMMONS NORMALS: normal inspection of the chest and normal palpation of entire chest wall Resp: COMMON NORMALS: normal respiratory effort, No retractions and No use of accessory muscles EFFORT & INSPECTION: Yes able to speak in complete sentences and Yes symmetric chest movement AUSCULTATION: no crackles, no rales, no rhonchi, no wheezes and breath sounds absent on th left Cardio: COMMON NORMALS: no JVD, regular rate, regular rhythm, S1 normal heart sound present and S2 normal heart sound present RATE: regular rate RHYTHM: regular rhythm HEART SOUNDS: S1 normal heart sound present, S2 normal heart sound present, no click, no gallops, no murmurs and no rubs GI: COMMON NORMALS: Soft to palpation and No hepatosplenomegaly present PALPATION: Yes Soft to palpation, No Tenderness to palpation present (GI), No Guarding due to palpation present (GI), No Rigid due to palpation, Yes No hepatosplenomegaly present, No Hernia present, No Palpable mass present and No Pulsatile mass present : COMMON NORMALS: Yes no CVA tenderness BLADDER/KIDNEY EXAM: Yes no CVA tenderness Back/Pelvis: COMMON NORMALS: no CVA tenderness, thoracic and lumbar spine normal to inspection, no thoracic nor lumbar tenderness and thoraco-lumbar ROM normal Extremity: COMMON NORMALS: normal to inspection, full ROM, capillary refill normal, no joint enlargement, no clubbing, cyanosis or edema and no calf tenderness Neuro: COMMON NORMALS: patient oriented x3, CN's II-XII intact bilaterally, moves all extremities, no focal motor deficits and no sensory deficits noted SENSORIUM/ORIENTATION: Yes alert MENINGEAL SIGNS: Yes no meningeal signs SPEECH: speech normal Psych: COMMON NORMALS: mental status grossly normal, Normal thought process present, cooperative, normal affect, speech normal and activity/motor behavior normal SPEECH: Yes normal speech THOUGHT PROCESS: Normal thought process present Skin: COMMON NORMALS: no rashes or lesions noted, turgor normal, no jaundice, no petechiae and no mottling GENERAL SKIN EXAM: no rashes or lesions noted and turgor normal Procedures Chest Tube Chest Tube 1: Chest Tube Location: left Size of Tube (cm): 36 Chest Tube Prep: Yes betadine prep, sterile drapes applied and other Local Anesthetic: lidocaine 1% and with epi Amount of anesthesia used (mL): 20 Incision Made With: #11 blade Post Procedure: sutured to skin and sterile dressing applied Tube Drainage: blood Amount of initial drainage (mL): 5 Post Procedure CXR?: Yes Patient Tolerated Procedure: Yes Progress: Pneumothorax did not resolve. Procedural Sedation Indication: other (Chest tube placement) ASA Class: III Preparation: manager of photography applied, pulse oximeter, supplemental O2 applied, suction/airway equipment at bedside and IV secured Fentanyl: IV Fentanyl dose (mcg): 25 IV Etomidate dose (mg): 10 Patient Tolerated Procedure: well and no complications Course ED course: 535 -patient is getting ready to go to the floor. He appears much more comfortable at this time. He is informed me that he is breathing easier and feels like he can take deeper breaths now. Radiology read there chest x-ray is a slight mediastinal shift to my eye there does not appear to be. The patient has no tension physiology. Upon repeat history is unclear I do believe the patient likely had an increase in the pneumothorax yesterday but it is possible it is been present for several days. Dr. Monson was informed about the radiology finding he agrees that there is no tension physiology the patient can continue to be treated with oxygen and the chest tube that is present. Vital Signs: Vital signs: Vital Signs Temperature 97.7 F 04/18/20 00:22 Pulse Rate 73 04/18/20 05:30 Respiratory Rate 28 H 04/18/20 05:30 Blood Pressure 115/79 04/18/20 05:30 Pulse Oximetry 96 04/18/20 05:30 MDM - SOB/Dyspnea MDM Narrative: Medical decision making narrative: Mr. Araya is a very nice 65-year-old male who came in with increased shortness of breath since being discharged from [facility] for COVID-19 complications. It is unclear when it happened possibly early this week or even today but the patient developed a large left pneumothorax. 36 Irish chest tube was placed by me and there was good mehta of air when I popped through the pleura into the thoracic cavity. A sterile gloved finger was placed there is no sign of adhesions. The chest tube has appropriate positioning. There does appear to be a large air leak and the pneumothorax is not resolved. I discussed the case with Dr. Monson who wants to wait and not place another tube but give this tube time as the patient's lung may have been down for quite some time. The patient is not in distress there is no sign of tension pneumothorax. He actually states he feels better and can breathe easier since the procedure. We will continue him on supplemental oxygen. Dr. Arredondo agrees to admit and Dr. Monson will consult for chest tube management. Lab Data: Attestation: I reviewed the patient's lab results. Labs: Lab Results 04/18/20 04/18/20 04/18/20 Range/Units 01:03 01:15 01:15 WBC (4.0-10.0) 10^3/ uL RBC (4.1-5.3) 10^6/u L Hgb (11.7-16.6) g/dL Hct (42.0-52.0) % MCV (80-94) fL MCH (28.0-34.0) pg MCHC (30.0-36.0) g/dL RDW (12.1-15.1) % Plt Count (130-400) 10^3/c mm MPV (7.4-10.4) fL Neut % (Auto) % Lymph % (Auto) % [place] % (Auto) % Eos % (Auto) % Baso % (Auto) % Neut # (Auto) (1.8-7.7) 10^3/u L Lymph # (Auto) (0.8-4.8) 10^3/u L [place] # (Auto) (0.2-0.9) 10^3/u L Eos # (Auto) (0.0-0.8) 10^3/u L Baso # (Auto) (0.0-0.1) 10^3/u L Nucleated RBC % (a uto) % Nucleated RBCs # /100WBC PT 14.70 (12.1-14.9) SECO NDS INR 1.11 (0.8-1.2) Fibrinogen 531 H (174-498) mg/dL D-Dimer 0.58 (0-0.59) ug/mIFE U Specimen Type Arterial Sample Site Brachial, left ABG pH 7.48 H (7.35-7.45) ABG pCO2 28.4 L (35-45) mmHg ABG pO2 64.4 L (80.0-100.0) mmH g ABG HCO3 21.1 L (22-26) mmol/L ABG Base Excess -1.1 (-2.0-2.0) mmol/ L Ghassan Test N/a Hematocrit 44.2 (42-52) % O2 Delivery Device Nc O2 Liters/Min 2.0 % Convex Grinder Operator ID Harkr Sodium 136 (136-145) mmol/L Potassium 3.9 (3.5-5.1) mmol/L Chloride 105 (98-107) mmol/L Carbon Dioxide 18 L (22-29) mmol/L Anion Gap 16.9 (5-19) BUN 19 (8-23) mg/dL Creatinine 0.8 (0.7-1.2) mg/dL GFR Calculation 97.3 (90-130) mL/min Glucose 104 (65-115) mg/dL Calculated Osmolal ity 285 (285-295) mOsm/k g Lactic Acid (0.5-2.2) mmol/L Calcium 8.7 (8.5-10.5) mg/dL Magnesium 2.1 (1.7-2.3) mg/dL Ferritin 581 H (30-400) ng/mL Total Bilirubin 0.5 (0.15-1.2) mg/dL AST 26 (0-40) U/L ALT 51 H (0-41) U/L Alkaline Phosphata se 88 (40-130) IU/L Lactate Dehydrogen ase 265 H (135-225) U/L Troponin T Baselin e (0-15) ng/L C-Reactive Protein 15.8 H (0.0-4.9) mg/L NT-Pro-B Natriuret Pep 312 H (0-125) pg/mL Total Protein 6.6 (6.6-8.7) g/dL Albumin 3.2 L (3.5-5.2) g/dL Globulin 3.4 (1.3-4.6) g/dL Procalcitonin 0.07 (0-0.5) ng/mL Influenza Type A A g (Negative) Influenza Type B A g (Negative) SARS-CoV-2 Ag (Rap id) (Negative) 04/18/20 04/18/20 04/18/20 Range/Units 01:15 01:15 01:15 WBC 8.4 (4.0-10.0) 10^3/ uL RBC 5.08 (4.1-5.3) 10^6/u L Hgb 14.2 (11.7-16.6) g/dL Hct 43.9 (42.0-52.0) % MCV 86.4 (80-94) fL MCH 28.0 (28.0-34.0) pg MCHC 32.3 (30.0-36.0) g/dL RDW 15.6 H (12.1-15.1) % Plt Count 244 (130-400) 10^3/c mm MPV 10.1 (7.4-10.4) fL Neut % (Auto) 64.5 % Lymph % (Auto) 18.8 % [place] % (Auto) 10.0 % Eos % (Auto) 4.5 % Baso % (Auto) 0.5 % Neut # (Auto) 5.40 (1.8-7.7) 10^3/u L Lymph # (Auto) 1.6 (0.8-4.8) 10^3/u L [place] # (Auto) 0.8 (0.2-0.9) 10^3/u L Eos # (Auto) 0.4 (0.0-0.8) 10^3/u L Baso # (Auto) 0.0 (0.0-0.1) 10^3/u L Nucleated RBC % (a uto) 0 % Nucleated RBCs # 0.0 /100WBC PT (12.1-14.9) SECO NDS INR (0.8-1.2) Fibrinogen (174-498) mg/dL D-Dimer (0-0.59) ug/mIFE U Specimen Type Sample Site ABG pH (7.35-7.45) ABG pCO2 (35-45) mmHg ABG pO2 (80.0-100.0) mmH g ABG HCO3 (22-26) mmol/L ABG Base Excess (-2.0-2.0) mmol/ L Ghassan Test Hematocrit (42-52) % O2 Delivery Device O2 Liters/Min % Convex Grinder Operator ID Sodium (136-145) mmol/L Potassium (3.5-5.1) mmol/L Chloride (98-107) mmol/L Carbon Dioxide (22-29) mmol/L Anion Gap (5-19) BUN (8-23) mg/dL Creatinine (0.7-1.2) mg/dL GFR Calculation (90-130) mL/min Glucose (65-115) mg/dL Calculated Osmolal ity (285-295) mOsm/k g Lactic Acid 1.8 (0.5-2.2) mmol/L Calcium (8.5-10.5) mg/dL Magnesium (1.7-2.3) mg/dL Ferritin (30-400) ng/mL Total Bilirubin (0.15-1.2) mg/dL AST (0-40) U/L ALT (0-41) U/L Alkaline Phosphata se (40-130) IU/L Lactate Dehydrogen ase (135-225) U/L Troponin T Baselin e 10 (0-15) ng/L C-Reactive Protein (0.0-4.9) mg/L NT-Pro-B Natriuret Pep (0-125) pg/mL Total Protein (6.6-8.7) g/dL Albumin (3.5-5.2) g/dL Globulin (1.3-4.6) g/dL Procalcitonin (0-0.5) ng/mL Influenza Type A A g (Negative) Influenza Type B A g (Negative) SARS-CoV-2 Ag (Rap id) (Negative) 04/18/20 04/18/20 Range/Units 01:35 02:55 WBC (4.0-10.0) 10^3/ uL RBC (4.1-5.3) 10^6/u L Hgb (11.7-16.6) g/dL Hct (42.0-52.0) % MCV (80-94) fL MCH (28.0-34.0) pg MCHC (30.0-36.0) g/dL RDW (12.1-15.1) % Plt Count (130-400) 10^3/c mm MPV (7.4-10.4) fL Neut % (Auto) % Lymph % (Auto) % [place] % (Auto) % Eos % (Auto) % Baso % (Auto) % Neut # (Auto) (1.8-7.7) 10^3/u L Lymph # (Auto) (0.8-4.8) 10^3/u L [place] # (Auto) (0.2-0.9) 10^3/u L Eos # (Auto) (0.0-0.8) 10^3/u L Baso # (Auto) (0.0-0.1) 10^3/u L Nucleated RBC % (a uto) % Nucleated RBCs # /100WBC PT (12.1-14.9) SECO NDS INR (0.8-1.2) Fibrinogen (174-498) mg/dL D-Dimer (0-0.59) ug/mIFE U Specimen Type Sample Site ABG pH (7.35-7.45) ABG pCO2 (35-45) mmHg ABG pO2 (80.0-100.0) mmH g ABG HCO3 (22-26) mmol/L ABG Base Excess (-2.0-2.0) mmol/ L Ghassan Test Hematocrit (42-52) % O2 Delivery Device O2 Liters/Min % Convex Grinder Operator ID Sodium (136-145) mmol/L Potassium (3.5-5.1) mmol/L Chloride (98-107) mmol/L Carbon Dioxide (22-29) mmol/L Anion Gap (5-19) BUN (8-23) mg/dL Creatinine (0.7-1.2) mg/dL GFR Calculation (90-130) mL/min Glucose (65-115) mg/dL Calculated Osmolal ity (285-295) mOsm/k g Lactic Acid (0.5-2.2) mmol/L Calcium (8.5-10.5) mg/dL Magnesium (1.7-2.3) mg/dL Ferritin (30-400) ng/mL Total Bilirubin (0.15-1.2) mg/dL AST (0-40) U/L ALT (0-41) U/L Alkaline Phosphata se (40-130) IU/L Lactate Dehydrogen ase (135-225) U/L Troponin T Baselin e (0-15) ng/L C-Reactive Protein (0.0-4.9) mg/L NT-Pro-B Natriuret Pep (0-125) pg/mL Total Protein (6.6-8.7) g/dL Albumin (3.5-5.2) g/dL Globulin (1.3-4.6) g/dL Procalcitonin (0-0.5) ng/mL Influenza Type A A g Negative (Negative) Influenza Type B A g Negative (Negative) SARS-CoV-2 Ag (Rap id) Negative (Negative) Imaging Data^: CXR: Attestation: I personally reviewed and interpreted this imaging study as follows: My impression: Large left pneumothorax EKG Data^: EKG 1: Attestation: I personally reviewed and interpreted this EKG as follows: EKG Interpretation Date: 04/18/20 EKG interpretation time: 00:40 Interpretation: Sinus tachycardia with a ventricular rate of 106 beats a minute, normal axis, no blocks, normal intervals, PVCs present, ST segment depression V3 through V6 and 2 and aVF. Discharge Plan Discharge Patient Disposition: Admitted As Inpatient Admit Provider: Clarence Arredondo Clinical Impression: Pneumothorax, left Condition: Stable Referrals: Mukesh Reyes MD [Primary Care Provider] - Coding Level of Care Code ED Shirt Ironer for Chg Fwd Exam Comprehensive
--- NOTE | 2020-04-18 00:50 | ECG_ITS ---
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 Measurements Intervals Leonardo Rate: 106 P: 62 CT: 134 QRS: 24 QRSD: 101 T: 41 QT: 324 QTc: 431 Interpretive Statements SINUS TACHYCARDIA WITH OCCASIONAL VENTRICULAR PREMATURE COMPLEXES POSSIBLE LEFT ATRIAL ENLARGEMENT [-0.1mV P WAVE IN V1/V2] MODERATE ST DEPRESSION [0.05+ mV ST DEPRESSION] Compared to ECG 04/01/2020 07:12:55 Ventricular premature complex(es) now present ST (T wave) deviation now present Incomplete right bundle-branch block no longer present Electronically Signed On 04-18-2020 17:56:33 CDT by Ashlee Jauregui M.D. [email or web address] Grade Weather & Channel Branding Graphics Display Systemkettering health hamilton.[employer]/store/NU/[id number] f
[2020-04-18] MEDS: ipratropium 0.5 mg/2.5 mL Neb 1.5 MG INHALATION (01:10)
[2020-04-18] MEDS: levalbuterol 1.25 mg/3 mL Neb 3.75 MG INHALATION (01:10)
[2020-04-18 01:14] LABS: ABG PCO2 28.4 mmHg (35-45); ABG PH Result 7.48 (7.35-7.45); Arterial Blood Gas Hematocrit 44.2 % (42-52); Base Excess ABG -1.1 mmol/L (-2.0-2.0); Blood Gas Operator Identificat HARKR; Blood Gas Sample Site Brachial, left; Blood Gas Sample Type Arterial; HCO3 ABG 21.1 mmol/L (22-26); Oxygen Device NC; PO2 ABG 64.4 mmHg (80.0-100.0)
[2020-04-18] MEDS: sodium chloride 0.9% 1,000 ML 75 ML IV ×2 (01:27→14:45)
[2020-04-18] MEDS: dexamethasone 4 mg/mL INJ 6 MG IVP (01:28)
[2020-04-18 01:51] LABS: Basophils % 0.5 %; Eosinophils # 0.4 10^3/uL (0.0-0.8); Eosinophils % 4.5 %; Hematocrit 43.9 % (42.0-52.0); Hemoglobin 14.2 g/dL (11.7-16.6); Lymphocytes # 1.6 10^3/uL (0.8-4.8); Lymphocytes % 18.8 %; Mean Corpuscular HGB Conc 32.3 g/dL (30.0-36.0); Mean Corpuscular Volume 86.4 fL (80-94); Mean Platelet Volume 10.1 fL (7.4-10.4); Monocytes # 0.8 10^3/uL (0.2-0.9); Neutrophils % 64.5 %; Nucleated Red Blood Cells % 0 %; Platelet Count 244 10^3/cmm (130-400); Red Blood Count 5.08 10^6/uL (4.1-5.3); Red Cell Distribution Width 15.6 % (12.1-15.1); White Blood Count 8.4 10^3/uL (4.0-10.0)
[2020-04-18 01:57] LABS: INR 1.11 (0.8-1.2)
[2020-04-18 02:00] LABS: Lactic Sepsis W/Reflex 1.8 mmol/L (0.5-2.2)
[2020-04-18 02:01] LABS: D Dimer 0.58 ug/mIFEU (0-0.59)
[2020-04-18 02:02] LABS: Fibrinogen 531 mg/dL (174-498)
[2020-04-18 02:03] LABS: Troponin(5th) Baseline 10 ng/L (0-15)
[2020-04-18 02:10] LABS: NT Pro B Type Natriuretic Pept 312 pg/mL (0-125); Procalcitonin 0.07 ng/mL (0-0.5)
[2020-04-18 02:22] LABS: Alanine Aminotransferase 51 U/L (0-41); Albumin Level 3.2 g/dL (3.5-5.2); Alkaline Phosphatase 88 IU/L (40-130); Anion Gap 16.9 (5-19); Aspartate Amino Transferase 26 U/L (0-40); Blood Urea Nitrogen 19 mg/dL (8-23); C Reactive Protein 15.8 mg/L (0.0-4.9); Calcium 8.7 mg/dL (8.5-10.5); Carbon Dioxide 18 mmol/L (22-29); Chloride 105 mmol/L (98-107); Ferritin 581 ng/mL (30-400); Globulin 3.4 g/dL (1.3-4.6); Glomerular Filtration Rate 97.3 mL/min (90-130); Glucose 104 mg/dL (65-115); Lactate Dehydrogenase 265 U/L (135-225); Magnesium 2.1 mg/dL (1.7-2.3); Osmolality Calculated 285 mOsm/kg (285-295); Potassium 3.9 mmol/L (3.5-5.1); Sodium 136 mmol/L (136-145); Total Bilirubin 0.5 mg/dL (0.15-1.2); Total Protein 6.6 g/dL (6.6-8.7)
--- NOTE | 2020-04-18 02:22 | XRR_ITS ---
PROCEDURE INFORMATION: Exam: XR Chest, 1 View Exam date and time: 04/18/2020 2:39 AM Age: 65 years old Clinical indication: Shortness of breath; Additional info: Abnormal first chest x-ray TECHNIQUE: Imaging protocol: XR of the chest Views: 1 view. COMPARISON: CR XR chest 1V portable [id number] 04/18/2020 1:34 AM FINDINGS: Lungs: Near complete collapse of the left lung. Bulla in the left lung. Right basilar interstitial opacities persist. Pleural space: No significant change in the massive left pneumothorax with slight mediastinal shift to the right. Heart/Mediastinum: Unremarkable. No cardiomegaly. Bones/joints: No acute fracture. XR/XR chest 1V portable [id number] IMPRESSION: No significant change in the massive left pneumothorax with slight mediastinal shift to the right.
[2020-04-18 02:23] LABS: Influenza A by IFA Negative (Negative); Influenza B by IFA Negative (Negative)
[2020-04-18] MEDS: fentaNYL 50 mcg/mL INJ 2mL 100 MCG IVP (03:02)
[2020-04-18 03:19] LABS: SARS Covid-2 Antigen Negative (Negative)
--- NOTE | 2020-04-18 03:24 | XRR_ITS ---
PROCEDURE INFORMATION: Exam: XR Chest, 1 View Exam date and time: 04/18/2020 3:25 AM Age: 65 years old Clinical indication: Device placement; Chest tube; Additional info: Post chest tube placement TECHNIQUE: Imaging protocol: XR of the chest Views: 1 view. COMPARISON: CR XR chest 1V portable [id number] 04/18/2020 2:28 AM FINDINGS: Tubes, catheters and devices: Left chest tube placement. Lungs: The left lung remains largely collapsed. Mild right basilar interstitial opacities. Pleural space: A large left pneumothorax has only mildly decreased and there is persistent mediastinal shift to the right. Heart/Mediastinum: Unremarkable. No cardiomegaly. Bones/joints: No acute fracture. XR/XR chest 1V portable [id number] IMPRESSION: 1. Left chest tube placement. 2. A large left pneumothorax has only mildly decreased and there is persistent mediastinal shift to the right. 3. The left lung remains largely collapsed. The findings were verbally communicated via telephone conference with Dr. Justina Nguyen at 3:59 AM CDT on 04/18/2020. The findings were acknowledged and understood.
--- NOTE | 2020-04-18 04:00 | XRR_ITS ---
PROCEDURE INFORMATION: Exam: XR Chest, 1 View Exam date and time: 04/18/2020 4:12 AM Age: 65 years old Clinical indication: Device placement; Patient HX: 30 minutes post chest tube; Additional info: Post tube placement TECHNIQUE: Imaging protocol: XR of the chest Views: 1 view. COMPARISON: CR XR chest 1V portable [id number] 04/18/2020 3:21 AM FINDINGS: Lungs: Left lung collapse with a bulla. Interstitial opacities in the right lung base remain. Pleural space: No significant change in the massive left pneumothorax with mediastinal shift to the right. Heart/Mediastinum: Unremarkable. No cardiomegaly. Bones/joints: No acute fracture. Soft tissues: Left-sided subcutaneous emphysema. XR/XR chest 1V portable [id number] IMPRESSION: No significant change in the massive left pneumothorax with mediastinal shift to the right. The findings were verbally communicated via telephone conference with Nurse Ada Woody at 4:26 AM CDT on 04/18/2020. The findings were acknowledged and understood. Readback performed.
--- NOTE | 2020-04-18 04:21 | PM.HP ---
Providers/Chief Complaint Primary Care Provider: Mukesh Reyes MD Chief Complaint: SOB/covid recovered History of Present Illness Hitesh Araya is a 65 year old male chronic emphysema, fibromyalgia, rheumatoid arthritis currently off methotrexate and golimumab, hypertension, recent multiple admissions for COVID-19 pneumonia and acute respiratory failure ultimately requiring transfer to [facility] (received Decadron,remdesvir, convalescent plasma). Patient's tells me that patient was discharged April 10Monday from [facility], he was discharged on intermittent oxygen, at home patient's clinical progress was bumpy, tells me that he had good days, and bad days. On bad days typically he would be short of breath, requiring oxygen, no fevers, has a chronic cough, fatigue, malaise. But on good days, he was doing well, able to carry out most of his activities. Patient earlier on the week and did see his primary care provider tested negative for COVID, was given steroid treatments which he finished. Patient's states that on , he he was doing well. But starting on Monday he had progressive shortness of breath, cough, fatigue, malaise that was not improving,, so they decided to come to the emergency room. No chest pain, no palpitations. No lightheadedness, no dizziness. No fevers. No nausea, no vomiting, no diarrhea, no dysuria. Patient has been appropriate social distancing, he has finished his self-isolation, wearing a facemask. Review of Systems Const: Denies: fever(s), chills, fatigue or malaise Eyes: Denies: change in vision or blurry vision ENMT: Denies: nasal congestion Resp: Reports: dyspnea and non-productive cough; Denies: productive cough or wheezing GI: Denies: abdominal pain, nausea, vomiting, hematemesis, diarrhea, constipation, hematochezia or melena : Denies: flank pain, difficulty urinating, dysuria or urinary frequency Musc: Denies: neck pain or back pain Skin/Breast: Denies: rash Neuro: Denies: headache(s), dizziness or vertigo Psych: Denies: anxiety or depression Endo: Denies: polyuria or polydipsia Medications/Allergies Home Medications Medication Instructions Recorded Confirmed Last Taken Type valsartan 160 mg tablet 160 mg PO DAILY 09/30/19 04/01/20 03/31/20 History folic acid 1 mg tablet 1 mg PO DAILY #90 tab 10/01/19 04/01/20 03/31/20 Rx dexamethasone 6 mg PO DAILY #3 tab 03/27/20 04/01/20 03/31/20 Rx calcium carbonate [Calcium 500] 500 mg PO DAILY 04/01/20 04/01/20 03/31/20 History Allergies Allergy/AdvReac Type Severity Reaction Status Date / Time shellfish derived Allergy Intermediate SWELL Verified 03/25/20 17:54 Additional Medication Information Eliquis 5 mg twice daily PFSH Acute PFSH: Medical History (Updated 04/18/20 @ 04:30 by Clarence Arredondo MD) Fibromyalgia Health education Hiatal hernia High risk medication use Hypertension Immunization counseling Rheumatoid arthritis Seropositive rheumatoid arthritis of multiple sites Surgical History Hx of cholecystectomy S/P prostatectomy Locally advanced prostate cancer status post prostatectomy Family History Other CAD (coronary artery disease) Cancer Family history of premature coronary artery disease Hypertension Stroke Denies family history of Rheumatoid arthritis Diabetes Lupus Social History Smoking and tobacco status: former smoker Quit status (tobacco): has quit using tobacco Year quit tobacco: 2019 Alcohol intake: never Lives independently: Yes Household members: spouse Housing: House Vitals/I&O/Wt Last Vital Signs Temp 97.7 F 04/18/20 00:22 Pulse 65 04/18/20 04:00 Resp 30 H 04/18/20 04:00 BP 131/89 04/18/20 04:00 Pulse Ox 94 04/18/20 04:00 Weight last 48 hrs Weight 97.522 kg Physical Exam Const: COMMON NORMALS: no acute distress and patient oriented x3 GENERAL APPEARANCE: cooperative and comfortable HENMT: COMMON NORMALS: normocephalic HEAD & SCALP: normocephalic Eye: COMMON NORMALS: Equal, round and reactive pupils present GENERAL EYE: appearance normal, both eyes and all related structures PUPIL: Yes Equal, round and reactive pupils present Neck/C-Spine: COMMON NORMALS: full ROM, no lymphadenopathy, no JVD and Thyroid normal THYROID: Thyroid normal Lymph: LYMPHATIC: no lymphadenopathy noted Chest: OTHER: Left-sided chest tube in place, air leak present Resp: COMMON NORMALS: normal respiratory effort, No retractions, No use of accessory muscles and clear to auscultation bilaterally AUSCULTATION: clear to auscultation bilaterally Cardio: COMMON NORMALS: no JVD, regular rate, regular rhythm, S1 normal heart sound present, S2 normal heart sound present, No gallops present (Cardio), No clicks present (Cardio) and No murmurs present (Cardio) RATE: regular rate RHYTHM: regular rhythm HEART SOUNDS: S1 normal heart sound present and S2 normal heart sound present GI: COMMON NORMALS: Normal to inspection, nondistended, normoactive bowel sounds present, Soft to palpation, non-tender and No hepatosplenomegaly present PALPATION: Yes Soft to palpation and Yes No hepatosplenomegaly present Extremity: COMMON NORMALS: normal to inspection, full ROM and no pedal edema Neuro: COMMON NORMALS: patient oriented x3, CN's II-XII intact bilaterally, moves all extremities and no focal motor deficits Psych: COMMON NORMALS: mental status grossly normal, Normal thought process present and cooperative THOUGHT PROCESS: Normal thought process present Data : 04/18/20 01:15 04/18/20 01:15 Micro: Microbiology 04/18/20 01:15 Blood Culture - Preliminary Blood SPECIMEN COLLECTED A&P Assessment and plan (1) Acute on chronic respiratory failure with hypoxia: -Secondary to left pneumothorax -Review of patient's previous CT angiogram shows emphysematous changes, he does have several air pockets of bullae moderately sized on the left, that are likely the source of his pneumothorax -Has bilateral pulmonary emboli -Recently discharged from our [facility] April 10 for COVID-19, status post Decadron,remdevir, convalescent plasma -Status post chest tube placement by Dr. Nguyen in the ER,24f -However patient continues to have yearly, and pneumothorax on the left, he feels better, is on 10 L nonrebreather Plan: -Admit to general medical floors -Monitor clinical status quite closely -Oxygen therapy -Hold Eliquis 5 mg twice daily -Currently left-sided chest tube in place, 24 Turk[place], continues to have air leak and pneumothorax on the left, symptoms have improved, on 10 L nonrebreather, spoke to Dr. Monson as above continue chest tube to suction, oxygen therapy will see in the morning -Patient is a full code -Anticoagulation currently on hold Status: Acute (2) Pulmonary emboli: Status: Acute (3) COVID-19 virus infection: -Patient is over 20 days since onset of symptoms, has been fever free for the last 24 hours, COVID-19 testing done as outpatient was negative, rapid test done here was negative -For now we will continue COVID-19 precautions -Order PCR of COVID-19 -Monitor for fevers Status: Acute (4) Seropositive rheumatoid arthritis of multiple sites: Status: Acute (5) Hypertension: Status: Acute (6) Prostate cancer: Status: Acute (7) Chronic bullous emphysema: Status: Acute (8) Pneumothorax, left: Status: Acute Attestations Medical Necessity Statement*: Patient requires hospitalization, inpatient, greater than 2 midnights, for acute respiratory failure with hypoxia secondary to left pneumothorax Coding 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
--- NOTE | 2020-04-18 04:28 | PC.NURSE ---
Radiologist called to say that the patient's pneumothorax is unchanged.
--- NOTE | 2020-04-18 04:31 | PC.SOCIAL ---
Patient and spouse in with Dr. Arredondo. He will be a readmission as he was discharged from [facility] on 04/11/20 after his initial COVID exposure.
[2020-04-18] MEDS: ipratropium-albuterol 3 mL Neb INHALATION ×3 (08:54→21:04)
--- NOTE | 2020-04-18 12:23 | P.CONIM_ITS ---
Providers/Reason For Consult Consulting Physican/Specialty*: Dr. Bautista Reason for Consult*: Left pneumothorax Attending Physician: Pedro Escobedo MD Primary Care Provider: Mukesh Reyes MD History of Present Illness History of Present Illness Hitesh Araya is a 65 year old male with a history of rheumatoid arthritis who is on Biologics and was diagnosed with COVID-19 last month. Patient was transferred on 04/05/2020 to [facility] and discharged from there on 04/11/2020. Yesterday during the course of the day patient started having worsening shortness of breath denies any chest pain, palpitations, nausea or vomiting. He subsequently presented to the ER where he was noted to have a large left pneumothorax. Patient had a chest tube placed yesterday, the repeat chest x-ray showed a large pneumothorax but the nursing staff on the floor noticed that there was a significant air leak on the chest tube which was addressed. Patient oxygen requirement is down from 10 L to 7 L . Review of Systems General: Reports: 10 or more systems reviewed and unremarkable except in HPI and below Meds/Allergies Home Medications and Allergies Home Medications Medication Instructions Recorded Confirmed Last Taken Type folic acid 1 mg tablet 1 mg PO DAILY #90 tab 10/01/19 04/18/20 04/17/20 08:00 Rx calcium carbonate [Calcium 500] 500 mg PO DAILY 04/01/20 04/18/20 04/17/20 08:00 History apixaban [Eliquis] 5 mg PO DAILY 04/18/20 04/18/20 04/17/20 08:00 History Allergies Allergy/AdvReac Type Severity Reaction Status Date / Time shellfish derived Allergy Intermediate SWELL Verified 03/25/20 17:54 Current Medications Current Medications Generic Name Dose Route Start Last Admin Trade Name Freq PRN Reason Stop Dose Admin Albuterol/Ipratropium 3 ml 04/18/20 06:12 04/18/20 08:54 Duoneb INHALATION 3 ml Q6H.RESPIRATORY PRN Administration SHORTNESS OF BREATH Sodium Chloride 1,000 mls @ 75 mls/hr 04/18/20 00:45 04/18/20 03:30 Sodium Chloride 0.9% IV Infused .[id number] ARNALDO Infusion Losartan Potassium 50 mg 04/18/20 09:00 04/18/20 08:36 Cozaar PO Not Given DAILY ARNALDO PFSH Acute PFSH: Medical History Fibromyalgia Health education Hiatal hernia High risk medication use Hypertension Immunization counseling Rheumatoid arthritis Seropositive rheumatoid arthritis of multiple sites Surgical History Hx of cholecystectomy S/P prostatectomy Locally advanced prostate cancer status post prostatectomy Family History Other CAD (coronary artery disease) Cancer Family history of premature coronary artery disease Hypertension Stroke Denies family history of Rheumatoid arthritis Diabetes Lupus Social History Smoking and tobacco status: former smoker Quit status (tobacco): has quit using tobacco Year quit tobacco: 2019 Alcohol intake: never Lives independently: Yes Household members: spouse Housing: House Vitals/I&O/Wt Last Vital Signs Temp 98.3 F 04/18/20 05:43 Pulse 81 04/18/20 09:00 Resp 24 H 04/18/20 09:00 BP 127/97 04/18/20 05:46 Pulse Ox 96 04/18/20 09:00 04/17/20 04/18/20 04/18/20 22:59 06:59 14:59 Intake Total 1050 / 1050 Balance 1050 / 1050 Weight last 48 hrs Weight 215 lb Physical Exam Narrative: EXAM NARRATIVE: HEENT: Normocephalic, on 7 L oxygen Eye: Sclera /conjunctiva normal Respiratory and chest: Left chest tube to suction Neurological: Oriented to place person and time Skin: Intact, no lesions appreciated on gross exam Data Micro: Micro: Microbiology 04/18/20 10:57 Blood Culture - Pr eliminary Blood SPECIMEN [facility] 04/18/20 01:15 Blood Culture - Pr eliminary Blood SPECIMEN [facility] A&P Assessment and plan (1) Pneumothorax, left: 65-year-old gentleman status post chest tube placement for left pneumothorax who is recovering from COVID-19, negative on rapid test performed yesterday. Patient is on Eliquis for PE We will repeat a chest x-ray today and then leave the chest tube to suction today and follow-up with a chest x-ray in the morning. 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
--- NOTE | 2020-04-18 12:24 | XRR_ITS ---
PROCEDURE INFORMATION: Exam: XR Chest, 1 View Exam date and time: 04/18/2020 12:25 PM Age: 65 years old Clinical indication: Condition or disease; Lung condition and disease; Pneumothorax; Spontaneous; Additional info: Left ptx TECHNIQUE: Imaging protocol: XR of the chest Views: 1 view. COMPARISON: CR XR chest 1V portable [id number] 04/18/2020 4:01 AM FINDINGS: Tubes, catheters and devices: The left chest tube is present in satisfactory position. Lungs: There is bibasilar atelectasis. Pleural space: There is no obvious pneumothorax. Heart/Mediastinum: There is a large hiatal hernia similar to old study. Bones/joints: Unremarkable. Soft tissues: Subcutaneous emphysema is present over the left chest wall. XR/XR chest 1V portable [id number] IMPRESSION: 1. The left chest tube is present. No significant pneumothorax is seen. 2. Bibasilar atelectasis especially on the left side. 3. Large hiatal hernia.
[2020-04-18] MEDS: acetaminophen-codeine 300-30mg Tablet 1 TAB PO ×2 (14:44→20:42)
--- NOTE | 2020-04-18 15:45 | PM.PN ---
Subjective Subjective: Interval history: In the last 24h, serial xray chest have been done for the evaluation of Lt PTX.Chest xray has showed marked improvement.Patient symptoms have also improved,he is experincing less SOB,suplemental oxygen requirement is going down.Currently requirung 5 L Oxygen via NC. Vitals and labs reviewed. Medications: Reviewed: Yes Medication Review Details: Eliquis 5 mg twice daily Vitals/I&O/Wt Last Vital Signs Temp 98.3 F 04/18/20 05:43 Pulse 77 04/18/20 15:00 Resp 24 H 04/18/20 15:00 BP 135/110 04/18/20 14:00 Pulse Ox 96 04/18/20 15:00 04/18/20 04/18/20 04/18/20 06:59 14:59 22:59 Intake Total 1050 / 1050 240 / 240 Output Total 800 / 800 Balance 1050 / 1050 -560 / -560 Weight last 48 hrs Weight 97.522 kg Physical Exam Const: COMMON NORMALS: patient oriented x3 HENMT: COMMON NORMALS: normocephalic, atraumatic, hearing grossly normal bilaterally and external ears normal HEAD & SCALP: normocephalic and atraumatic EXTERNAL EAR: Yes external ears normal Eye: COMMON NORMALS: no scleral icterus GENERAL EYE: appearance normal, both eyes and all related structures Chest: COMMONS NORMALS: normal inspection of the chest and normal palpation of entire chest wall CHEST: Yes Symmetrical chest wall rise Resp: COMMON NORMALS: clear to auscultation bilaterally EFFORT & INSPECTION: Yes abnormal respiratory pattern, Yes tachypneic and Yes respiratory distress AUSCULTATION: clear to auscultation bilaterally OTHER: air entry has markedly decreased over lt lung field.No wheezing, ronchii or rales present. Cardio: COMMON NORMALS: regular rate, regular rhythm, S1 normal heart sound present, S2 normal heart sound present, No gallops present (Cardio), No murmurs present (Cardio), No rub (Cardio) and Peripheral pulses 2+ throughout RATE: regular rate RHYTHM: regular rhythm HEART SOUNDS: S1 normal heart sound present and S2 normal heart sound present PERIPHERAL PULSES: Peripheral pulses 2+ throughout GI: COMMON NORMALS: Normal to inspection, nondistended, normoactive bowel sounds present, Soft to palpation, non-tender, No hepatosplenomegaly present and no masses AUSCULTATION: Yes normoactive bowel sounds PALPATION: Yes Soft to palpation and Yes No hepatosplenomegaly present RECTAL EXAM: Yes deferred Extremity: COMMON NORMALS: no clubbing, cyanosis or edema and no pedal edema Neuro: COMMON NORMALS: patient oriented x3 Data : 04/18/20 01:15 04/18/20 01:15 Micro: Microbiology 04/18/20 10:57 Blood Culture - Preliminary Blood SPECIMEN COLLECTED 04/18/20 01:15 Blood Culture - Preliminary Blood SPECIMEN COLLECTED A&P Assessment and plan (1) Acute on chronic respiratory failure with hypoxia: -Secondary to left pneumothorax -Review of patient's previous CT angiogram shows emphysematous changes, he does have several air pockets of bullae moderately sized on the left, that are likely the source of his pneumothorax -Has bilateral pulmonary emboli -Recently discharged from our [facility] April 10 for COVID-19, status post Decadron,remdevir, convalescent plasma -Status post chest tube placement by Dr. Nguyen in the ER,24f -However patient continues to have pneumothorax on the left, he feels better, is on 10 L nonrebreather Plan: -Admit to general medical floors -Monitor clinical status quite closely -Oxygen therapy -Hold Eliquis 5 mg twice daily -Currently left-sided chest tube in place, 24 [place], continues to have air leak and pneumothorax on the left, symptoms have improved, on 10 L nonrebreather, spoke to Dr. Monson as above continue chest tube to suction, oxygen therapy will see in the morning -Patient is a full code -Anticoagulation currently on hold Status: Acute (2) Pulmonary emboli: Status: Acute (3) COVID-19 virus infection: -Patient is over 20 days since onset of symptoms, has been fever free for the last 24 hours, COVID-19 testing done as outpatient was negative, rapid test done here was negative -For now we will continue COVID-19 precautions -Order PCR of COVID-19 -Monitor for fevers Status: Acute (4) Seropositive rheumatoid arthritis of multiple sites: Status: Acute (5) Hypertension: Status: Acute (6) Prostate cancer: Status: Acute (7) Chronic bullous emphysema: Status: Acute (8) Pneumothorax, left: Status: Acute Attestations Medical Necessity Statement*: Patient needs to be hospital for lt PTX management as well as for severe respiratory distress Coding Level of Care 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
[2020-04-19] VITALS (8 sets, daily range): BP systolic 114–138; BP diastolic 83–99; PULSE 66–90; RESP 16–28; TEMP 36.6–37; O2SAT 91–96
[2020-04-19] MEDS: acetaminophen-codeine 300-30mg Tablet 1 TAB PO ×4 (00:48→20:37)
[2020-04-19] MEDS: sodium chloride 0.9% 1,000 ML 75 ML IV (03:28)
[2020-04-19 06:05] LABS: Basophils % 0.4 %; Eosinophils # 0.4 10^3/uL (0.0-0.8); Eosinophils % 4.6 %; Hematocrit 40.2 % (42.0-52.0); Hemoglobin 12.5 g/dL (11.7-16.6); Lymphocytes # 1.7 10^3/uL (0.8-4.8); Lymphocytes % 21.6 %; Mean Corpuscular HGB Conc 31.1 g/dL (30.0-36.0); Mean Corpuscular Volume 89.9 fL (80-94); Mean Platelet Volume 10.5 fL (7.4-10.4); Monocytes # 0.7 10^3/uL (0.2-0.9); Neutrophils # 4.95 10^3/uL (1.8-7.7); Neutrophils % 63.5 %; Nucleated Red Blood Cells % 0 %; Platelet Count 171 10^3/cmm (130-400); Red Blood Count 4.47 10^6/uL (4.1-5.3); Red Cell Distribution Width 15.6 % (12.1-15.1); White Blood Count 7.8 10^3/uL (4.0-10.0)
[2020-04-19 06:23] LABS: Alanine Aminotransferase 34 U/L (0-41); Albumin Level 2.8 g/dL (3.5-5.2); Alkaline Phosphatase 76 IU/L (40-130); Aspartate Amino Transferase 17 U/L (0-40); Blood Urea Nitrogen 11 mg/dL (8-23); Calcium 8.6 mg/dL (8.5-10.5); Carbon Dioxide 19 mmol/L (22-29); Chloride 108 mmol/L (98-107); Globulin 3.1 g/dL (1.3-4.6); Glomerular Filtration Rate 135.6 mL/min (90-130); Glucose 109 mg/dL (65-115); Magnesium 2.2 mg/dL (1.7-2.3); Osmolality Calculated 284 mOsm/kg (285-295); Phosphorus 3.3 mg/dL (2.5-4.5); Sodium 137 mmol/L (136-145); Total Bilirubin 0.4 mg/dL (0.15-1.2); Total Protein 5.9 g/dL (6.6-8.7)
--- NOTE | 2020-04-19 07:00 | XRR_ITS ---
PROCEDURE INFORMATION: Exam: XR Chest, 1 View Exam date and time: 04/18/2020 11:59 PM Age: 65 years old Clinical indication: Shortness of breath; Additional info: SOB TECHNIQUE: Imaging protocol: XR of the chest Views: 1 view. COMPARISON: CR (CHEST, ) 04/18/2020 12:35 PM FINDINGS: Tubes, catheters and devices: A left chest tube is present in satisfactory position. Lungs: There is bibasilar atelectasis but this has decreased since previous study. Pleural space: No significant pneumothorax. Heart/Mediastinum: Stable large hiatal hernia.. No cardiomegaly. Bones/joints: Unremarkable. XR/XR chest 1V portable [id number] IMPRESSION: 1. Status factory chest tube position. No pneumothorax seen. 2. Improving basilar atelectasis.
[2020-04-19 07:06] LABS: Anion Gap 14.1 (5-19); Potassium 4.1 mmol/L (3.5-5.1)
--- NOTE | 2020-04-19 16:06 | XRR_ITS ---
PROCEDURE INFORMATION: Exam: XR Chest, 1 View Exam date and time: 04/19/2020 4:07 PM Age: 65 years old Clinical indication: Device placement; Other: Chest tube; Additional info: Ptx TECHNIQUE: Imaging protocol: XR of the chest Views: 1 view. COMPARISON: CR (CHEST, ) 04/19/2020 8:25 AM FINDINGS: Tubes, catheters and devices: A central line is in place on the left side extending into the left upper lobe. Lungs: There is atelectasis in the right lower lobe Pleural space: Unremarkable. No pleural effusion. No pneumothorax. Heart/Mediastinum: Unremarkable. No cardiomegaly. Bones/joints: Unremarkable. Soft tissues: Subcutaneous emphysema is seen in the lateral chest wall near the entrance of the chest tube stable since prior XR/XR chest 1V portable [id number] IMPRESSION: 1. Stable chest tube extending into the left upper lobe. 2. Subcutaneous emphysema left lateral chest wall. 3. Right lower lobe atelectasis
--- NOTE | 2020-04-19 16:38 | P.PN_ITS ---
Subjective Subjective: Interval history: Patient feeling a lot better today, and chest x- ray this morning showed complete resolution of pneumothorax. No air leak chest tube was placed on waterseal and repeat chest x-ray shows no evidence of pneumothorax Vitals/I&O/Wt Last Vital Signs Temp 98.0 F 04/19/20 15:33 Pulse 73 04/19/20 15:33 Resp 18 04/19/20 15:33 BP 115/83 04/19/20 15:33 Pulse Ox 91 04/19/20 15:33 04/19/20 04/19/20 04/19/20 06:59 14:59 22:59 Intake Total 953.75 / 1433.75 540 / 540 Output Total 4 500 / 500 Balance 942.75 / -160.25 40 / 40 Weight last 48 hrs Weight 215 lb Physical Exam Narrative: EXAM NARRATIVE: HEENT: Normocephalic Eye: Sclera /conjunctiva normal Respiratory and chest: Left chest tube to waterseal Neurological: Oriented to place person and time Skin: Intact, no lesions appreciated on gross exam Data : 04/19/20 05:28 04/19/20 05:28 Micro: Microbiology 04/18/20 10:57 Blood Culture - Preliminary Blood NEGATIVE TO DATE 04/18/20 01:15 Blood Culture - Preliminary Blood NEGATIVE TO DATE A&P Assessment and plan (1) Pneumothorax, left: 65-year-old gentleman status post chest tube placement for left pneumothorax who is recovering from COVID-19, negative on rapid test performed yesterday. Patient is on Eliquis for PE Chest tube placed on waterseal, repeat x-ray shows no evidence of pneumothorax Chest tube was pulled without any difficulty and Adaptic gauze dressing was applied. Patient tolerated the procedure well Repeat chest x-ray in 4 hours and tomorrow morning Status: Acute Attestations Medical Necessity Statement*: Left pneumothorax, hopefully can go home tomorrow Coding Level of Care Code Acute Vamp Presser for Amy Raymond Diagnoses Pneumothorax, left J93.9
[2020-04-19 18:08] LABS: Coronavirus Lab Test PTC Positive
--- NOTE | 2020-04-19 19:40 | XRR_ITS ---
PROCEDURE INFORMATION: Exam: XR Chest, 1 View Exam date and time: 04/19/2020 4:41 PM Age: 65 years old Clinical indication: Chest pain; Type not specified; Additional info: S/P chest tube removal TECHNIQUE: Imaging protocol: XR of the chest Views: 1 view. COMPARISON: CR (CHEST, ) 04/19/2020 4:[address] chest examination 04/02/2020 FINDINGS: Tubes, catheters and devices: Previously noted chest tube is now been removed Lungs: There is a circumscribed pneumatocele present in the left lower lobe measuring 5 cm x 5.4 cm. This finding was not as well visualized on prior examination. Interstitial densities seen in the lateral aspect of the left lower lobe and in the right lower lobe. Pleural space: Unremarkable. No pleural effusion. No pneumothorax. Heart/Mediastinum: Unremarkable. No cardiomegaly. A hiatal hernia is present. Bones/joints: Unremarkable. Other findings: Comparison to prior CT chest examination this finding was present at that time. XR/XR chest 1V portable [id number] IMPRESSION: 1. No acute findings. 2. Pneumatocele left lower lobe 3. Interstitial densities bilateral lungs 4. Previously noted left chest tube is now been removed. 5. Hiatal hernia 6. Subcutaneous emphysema left lateral chest
--- NOTE | 2020-04-19 21:05 | PM.PN ---
Subjective Subjective: Interval history: S/P removal of lt chest tube.Chest xary has shown resolution of lt PTX with presence of lt Subcutaneous emphysema left lateral chest. Patient suplemental requirement has gown down currently saturating above 95% on 3L of oxygen via NC. Deny any SOB,chest pain. Medications: Reviewed: Yes Vitals/I&O/Wt Last Vital Signs Temp 98.5 F 04/19/20 20:00 Pulse 72 04/19/20 20:38 Resp 18 04/19/20 20:38 BP 120/94 04/19/20 20:00 Pulse Ox 92 04/19/20 20:38 04/19/20 04/19/20 04/19/20 06:59 14:59 22:59 Intake Total 953.75 / 1433.75 1067.5 / 1067.5 68.75 / 1136.25 Output Total 1594 500 / 500 Balance 942.75 / -160.25 567.5 / 567.5 68.75 / 636.25 Weight last 48 hrs Weight 97.522 kg Physical Exam Const: COMMON NORMALS: patient oriented x3 HENMT: COMMON NORMALS: normocephalic, atraumatic, hearing grossly normal bilaterally and external ears normal HEAD & SCALP: normocephalic and atraumatic EXTERNAL EAR: Yes external ears normal Eye: COMMON NORMALS: no scleral icterus GENERAL EYE: appearance normal, both eyes and all related structures Chest: COMMONS NORMALS: normal inspection of the chest and normal palpation of entire chest wall CHEST: Yes Symmetrical chest wall rise Resp: COMMON NORMALS: normal respiratory effort, No retractions, No use of accessory muscles and clear to auscultation bilaterally EFFORT & INSPECTION: Yes symmetric chest movement AUSCULTATION: clear to auscultation bilaterally Cardio: COMMON NORMALS: regular rate, regular rhythm, S1 normal heart sound present, S2 normal heart sound present, No gallops present (Cardio), No murmurs present (Cardio), No rub (Cardio) and Peripheral pulses 2+ throughout RATE: regular rate RHYTHM: regular rhythm HEART SOUNDS: S1 normal heart sound present and S2 normal heart sound present PERIPHERAL PULSES: Peripheral pulses 2+ throughout GI: COMMON NORMALS: Normal to inspection, nondistended, normoactive bowel sounds present, Soft to palpation, non-tender, No hepatosplenomegaly present and no masses AUSCULTATION: Yes normoactive bowel sounds PALPATION: Yes Soft to palpation and Yes No hepatosplenomegaly present RECTAL EXAM: Yes deferred Extremity: COMMON NORMALS: no clubbing, cyanosis or edema and no pedal edema Neuro: COMMON NORMALS: patient oriented x3 Data : 04/19/20 05:28 04/19/20 05:28 Micro: Microbiology 04/18/20 10:57 Blood Culture - Preliminary Blood NEGATIVE TO DATE 04/18/20 01:15 Blood Culture - Preliminary Blood NEGATIVE TO DATE A&P Assessment and plan (1) Acute on chronic respiratory failure with hypoxia: -Secondary to left pneumothorax Has significantly improved. -Repeat Serial Xray Chest have shown resolution of Lt PTX.Chest tube have been removed. -CT angiogram: shows emphysematous changes, several air pockets of moderate sized bullae on the left, that are likely the source of his pneumothorax -Has bilateral pulmonary emboli -Recently discharged from [facility] April 10 for COVID-19, status post Decadron,remdevir, convalescent plasma -Status post chest tube placement by Dr. Nguyen in the ER,24f Plan: -Am chest xray.Monitor the lt chest subcutaneous emphysema -Will likely resume Eliquis 5 mg twice daily im am Status: Acute (2) Pulmonary emboli: resume Eliquis 5 mg twice daily in am Status: Acute (3) COVID-19 virus infection: -Patient is over 20 days since onset of symptoms, has been fever free for the last 24 hours, COVID-19 testing done as outpatient was negative, rapid test done here was negative. -COVID PCR is Positive -continue COVID-19 precautions -Continue to monitor for symptoms Status: Acute (4) Seropositive rheumatoid arthritis of multiple sites: Status: Acute (5) Hypertension: Status: Acute (6) Prostate cancer: Status: Acute (7) Chronic bullous emphysema: Status: Acute (8) Pneumothorax, left: Status: Acute Attestations Medical Necessity Statement*: Patient need to be in hospital for management of PTX. Coding Level of Care Code Acute Supervisor [employer] for Amy 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
--- NOTE | 2020-04-19 21:08 | PC.NURSE ---
Patient has no complaints at this time. Will monitor.
[2020-04-20] VITALS (8 sets, daily range): BP systolic 106–137; BP diastolic 75–96; PULSE 63–107; RESP 12–22; TEMP 36.6–36.9; O2SAT 87–94
--- NOTE | 2020-04-20 01:48 | PC.NURSE ---
Patient has no complaints at this time. Will monitor.
--- NOTE | 2020-04-20 06:06 | XRR_ITS ---
PROCEDURE INFORMATION: Exam: XR Chest, 1 View Exam date and time: 04/20/2020 7:02 AM Age: 65 years old Clinical indication: Device placement; Chest tube; Additional info: S/P chest tube removal for ptx TECHNIQUE: Imaging protocol: XR of the chest Views: 1 view. COMPARISON: CR (CHEST, ) 04/19/2020 7:18 PM FINDINGS: Tubes, catheters and devices: No radiopaque tube or catheter identified. Lungs: Emphysematous change with dominant 5.0 cm left basilar bulla. interstitial prominence and mild right basilar airspace disease. Pleural space: No significant pneumothorax or pleural effusion. Heart/Mediastinum: Hiatal hernia. Bones/joints: Degenerative change. Soft tissues: Subcutaneous emphysema in the left chest wall. XR/XR chest 1V portable [id number] IMPRESSION: 1. Emphysematous change with dominant 5.0 cm left basilar bulla. 2. Interstitial prominence and mild right basilar airspace disease.
[2020-04-20] MEDS: albuterol 8 gm MDI 2 PUFF INHALATION (07:45)
--- NOTE | 2020-04-20 09:13 | PC.RESP ---
PULMONARY REHAB INFORMATION SENT TO PATIENT.
--- NOTE | 2020-04-20 09:30 | PC.NURSE ---
Patient resting in bed at time of assessment. Patient A&O, even non labored breathing on 3L o2 per NC. Patient states his breathing feels fine and he is ready to see the doctor so he can go home. See physical assessment. No further needs identified at this time. Nurse to continue to monitor.
--- NOTE | 2020-04-20 11:00 | PC.NURSE ---
Patient weaned to RA by RT. Tolerating well. O2 sats remain in 90s while resting. Nurse to continue to monitor.
--- NOTE | 2020-04-20 11:38 | PM.DCS ---
Discharge Providers Date of Admission: 04/18/20 04:39 Date of Discharge: April 20, 2020 Attending Provider at Admission: Clarence Arredondo MD Attending Provider at Discharge: Sami Christie MD Consults: Surgery: Dr. Monson Primary Care Provider: Mukesh Reyes MD Diagnoses at Discharge Discharge Diagnosis (1) Acute on chronic respiratory failure with hypoxia: Status: Acute (2) Pulmonary emboli: Status: Acute (3) COVID-19 virus infection: Status: Acute (4) Seropositive rheumatoid arthritis of multiple sites: Status: Acute (5) Hypertension: Status: Acute (6) Prostate cancer: Status: Acute (7) Chronic bullous emphysema: Status: Acute (8) Pneumothorax, left: Status: Acute Reason for Visit Reason for Visit: SOB/covid recovered Hospital Course Discharge Summary: Hitesh Araya is a 65 year old male chronic emphysema, fibromyalgia, rheumatoid arthritis currently off methotrexate and golimumab, hypertension, recent multiple admissions for COVID-19 pneumonia and acute respiratory failure ultimately requiring transfer to [facility] (received Decadron,remdesvir, convalescent plasma). Patient's tells me that patient was discharged April 10Monday from [facility], he was discharged on intermittent oxygen, at home patient's clinical progress was bumpy, tells me that he had good days, and bad days. On bad days typically he would be short of breath, requiring oxygen, no fevers, has a chronic cough, fatigue, malaise. But on good days, he was doing well, able to carry out most of his activities. Patient earlier on the week and did see his primary care provider tested negative for COVID, was given steroid treatments which he finished. Patient's states that on , he he was doing well. But starting on Monday he had progressive shortness of breath, cough, fatigue, malaise that was not improving,, so they decided to come to the emergency room. No chest pain, no palpitations. No lightheadedness, no dizziness. No fevers. No nausea, no vomiting, no diarrhea, no dysuria. Patient has been appropriate social distancing, he has finished his self-isolation, wearing a facemask. He was found to have left pneumothorax with bilateral pulmonary emboli. He recently was discharged from [facility] after reading complete treatment for COVID-19 including the antiviral treatment and counseling plasma. He was seen by surgery and left-sided chest tube was placed. He responded well to the treatment and his pneumothorax resolved. He was put on waterseal and monitored for 24 hours and 424 hours after removal of the chest tube. His chest x-ray continues to remain stable. For pulmonary emboli he was discharged from [facility] on Eliquis 5 mg daily and his dose has been changed to 5 mg twice daily. He is been discharged hemodynamically stable condition on 2 L oxygen supplementation to keep saturation 92% with advised to follow-up with surgery in 2 weeks for removal of sutures. Home oxygen evaluation was done prior to discharge. Physical Exam Const: COMMON NORMALS: no acute distress and patient oriented x3 GENERAL APPEARANCE: cooperative and comfortable HENMT: COMMON NORMALS: normocephalic, atraumatic, hearing grossly normal bilaterally and external ears normal HEAD & SCALP: normocephalic and atraumatic EXTERNAL EAR: Yes external ears normal Eye: COMMON NORMALS: Equal, round and reactive pupils present and no scleral icterus GENERAL EYE: appearance normal, both eyes and all related structures PUPIL: Yes Equal, round and reactive pupils present Neck/C-Spine: COMMON NORMALS: full ROM, no lymphadenopathy, no JVD and Thyroid normal THYROID: Thyroid normal Lymph: LYMPHATIC: no lymphadenopathy noted Chest: COMMONS NORMALS: normal inspection of the chest and normal palpation of entire chest wall CHEST: Yes Symmetrical chest wall rise OTHER: Left-sided chest tube in place, air leak present Resp: COMMON NORMALS: normal respiratory effort, No retractions, No use of accessory muscles and clear to auscultation bilaterally EFFORT & INSPECTION: Yes symmetric chest movement, Yes abnormal respiratory pattern, Yes tachypneic and Yes respiratory distress AUSCULTATION: clear to auscultation bilaterally OTHER: air entry has markedly decreased over lt lung field.No wheezing, ronchii or rales present. Cardio: COMMON NORMALS: no JVD, regular rate, regular rhythm, S1 normal heart sound present, S2 normal heart sound present, No gallops present (Cardio), No clicks present (Cardio), No murmurs present (Cardio), No rub (Cardio) and Peripheral pulses 2+ throughout RATE: regular rate RHYTHM: regular rhythm HEART SOUNDS: S1 normal heart sound present and S2 normal heart sound present PERIPHERAL PULSES: Peripheral pulses 2+ throughout GI: COMMON NORMALS: Normal to inspection, nondistended, normoactive bowel sounds present, Soft to palpation, non-tender, No hepatosplenomegaly present and no masses AUSCULTATION: Yes normoactive bowel sounds PALPATION: Yes Soft to palpation and Yes No hepatosplenomegaly present RECTAL EXAM: Yes deferred Extremity: COMMON NORMALS: normal to inspection, full ROM, no clubbing, cyanosis or edema and no pedal edema Neuro: COMMON NORMALS: patient oriented x3, CN's II-XII intact bilaterally, moves all extremities and no focal motor deficits Psych: COMMON NORMALS: mental status grossly normal, Normal thought process present and cooperative THOUGHT PROCESS: Normal thought process present Discharge Data Data Completed and Pending: Completed Studies During Hospitalization Category Date Time Status XR chest 1V ken ble [id number] Routine Exams 04/19/20 07:00 Completed XR chest 1V ken ble [id number] Routine Exams 04/19/20 19:40 Completed XR chest 1V ken ble [id number] Routine Exams 04/20/20 06:06 Completed XR chest 1V ken ble [id number] Stat Exams 04/18/20 00:32 Completed XR chest 1V ken ble [id number] Stat Exams 04/18/20 02:22 Completed XR chest 1V ken ble [id number] Stat Exams 04/18/20 03:24 Completed XR chest 1V ken ble [id number] Stat Exams 04/18/20 04:00 Completed XR chest 1V ken ble [id number] Stat Exams 04/19/20 16:06 Completed XR chest 1V ken ble [id number] Urgent Exams 04/18/20 12:24 Completed Pending at discharge Category Date Time Status Blood Culture Sta t Lab 04/18/20 10:57 Results Complete Blood Co unt w/Auto AM LABS Lab 04/20/20 04:00 Ordered Complete Blood Co unt w/Auto AM LABS Lab 04/21/20 04:00 Ordered Comprehensive Met abolic Panel AM LA BS Lab 04/20/20 04:00 Ordered Comprehensive Met abolic Panel AM LA BS Lab 04/21/20 04:00 Ordered Magnesium AM LABS Lab 04/20/20 04:00 Ordered Magnesium AM LABS Lab 04/21/20 04:00 Ordered Phosphorus AM LAB S Lab 04/20/20 04:00 Ordered Phosphorus AM LAB S Lab 04/21/20 04:00 Ordered Labs from last 24 hours 04/18/20 07:40 Nasal/Oral COVID-1 9 PCR Positive Vitals: Last Vital Signs Temp 97.9 F 04/20/20 04:00 Pulse 107 H 04/20/20 07:46 Resp 22 H 04/20/20 07:46 BP 127/87 04/20/20 07:46 Pulse Ox 94 04/20/20 07:46 Discharge Plan Discharge Patient Disposition: Home Condition: Stable Prescriptions: New Spiriva Respimat 2.5 mcg/actuation mist 2 inh INHALATION DAILY 14 Days Qty: 14 RF: 0 Advair Diskus 250-50 mcg/dose blister with device 1 inh INHALATION Q12H 14 Days Qty: 60 RF: 0 ascorbic acid (vitamin C) 500 mg tablet 500 mg PO DAILY Qty: 14 RF: 0 zinc 50 mg tablet 50 mg PO DAILY Qty: 14 RF: 0 Continued folic acid 1 mg tablet 1 mg PO DAILY Qty: 90 RF: 3 calcium carbonate [Calcium 500] 500 mg calcium (1,250 mg) Tablet 500 mg PO DAILY RF: 0 Changed Eliquis 5 mg Tablet 5 mg PO BID 5 Days Qty: 10 RF: 0 Discharge Orders: Discharge Order (Routine); Ordered 04/20/20 Ordered By: Sami Christie Other Ambulatory Orders: DME: Oxygen (Order) Location: None Selected Ordered By: Sami Christie Referrals: Kayden Monson MD [Physician] - 2 weeks (You have a hospital followup with Dr Monson at his office [facility] on April 28 at 2:45pm) Mukesh Reyes MD [Primary Care Provider] - 04/28/20 9:30 am (You have a hospital followup with Dr. Reyes at [facility] on April 28 at 9:30am) Discharge Diet: Usual diet Discharge Activity: Resume usual activity and Increase activity as tolerated Patient Instructions: Zinc Sulfate (By mouth), Ascorbic Acid (Vitamin C) (By mouth), Fluticasone/Salmeterol (By breathing), Viral Pneumonia (DC), Spontaneous Pneumothorax (DC) Activity Restrictions/Additional Instructions: Please follow-up with Dr. Monson in 2 weeks for removal of sutures. Discharge Date/Time: 04/20/20 16:30 Discharge Attestations Time Spent in Discharge Care*: greater than 30 min Specific Discharge Activities: Specific discharge activities: educating patient, discussing with pcp/other providers, discussing with sample case porter/social workers/dc planners, documenting/other paperwork and evaluating patient/reviewing data Status at Discharge: Cognitive status at discharge: cognitively intact, Behavioral status at discharge: cooperative, Functional status at discharge: independent ambulation Overall status at discharge: patient is back to baseline Quality Metrics Clinical Quality Measures During this hospital stay, did patient experience: None Coding Level of Care Code Acute Service Promoter Salesperson for [facility] Fwd Exam Comprehensive Diagnoses Acute on chronic respiratory failure with hypoxia J96.21 Pulmonary emboli I26.99 COVID-19 virus infection U07.1 Seropositive rheumatoid arthritis of multiple sites M05.79 Hypertension I10 Prostate cancer C61 Chronic bullous emphysema J43.9 Pneumothorax, left J93.9
--- NOTE | 2020-04-20 16:16 | PC.NURSE ---
Discharge instructions given per the physician's orders. Patient verbalized understanding of information and did not have any further questions. IV has been removed. Patient dressed self. will drive patient home in private vehicle. Discharge medications delivered to bedside. HOME delivered portable O2. No further needs identified at this time. Nurse to continue to monitor.
--- NOTE | 2020-04-21 11:33 | P.PN_ITS ---
Subjective Subjective: Interval history: Date of service: 04/20/2020 Patient had been doing well overnight after the chest tube was pulled, no shortness of breath or low oxygen saturation Vitals/I&O/Wt Last Vital Signs Temp 98.0 F 04/20/20 16:16 Pulse 95 04/20/20 16:16 Resp 18 04/20/20 16:16 BP 106/79 04/20/20 16:16 Pulse Ox 94 04/20/20 16:16 Physical Exam Narrative: EXAM NARRATIVE: Left chest: Dressings dry and intact Data : 04/19/20 05:28 04/19/20 05:28 A&P Assessment and plan (1) Pneumothorax, left: 65-year-old gentleman status post chest tube placement for left pneumothorax who is recovering from COVID-19, negative on rapid test performed yesterday. Patient is on Eliquis for PE Doing well after chest tube was removed, chest x-ray showed resolution of pneumothorax Restart Eliquis today Follow-up 2 weeks Status: Resolved Attestations Medical Necessity Statement*: Pneumothorax resolved, DC home today Coding Level of Care Code Acute Flooring Machine Feeder for Amy Raymond Diagnoses Pneumothorax, left J93.9
--- NOTE | 2020-04-21 15:34 | PC.SOCIAL ---
Called to follow up with the patient and spoke with his . She stated that he is actually doing better now. He is eating well and drinking well and even took a shower. She stated that he has a follow up apt with Dr. Gallegos and his PCP on the of this month.
== END 2020-04-20 16:30 | disposition home health service (06) | DRG 199 ==
LOC: ER 04:38 → CSU 05:17
PROVIDERS: Emergency Medicine; Admitting Provider Family Medicine; PCP Family Medicine; Visit Provider Student in an Organized Health Care Education/Training Program
DX: J93.83 Other pneumothorax (principal); J96.21 Acute and chronic respiratory failure with hypoxia; I26.99 Other pulmonary embolism without acute cor pulmonale; D84.821 Immunodeficiency due to drugs; J43.9 Emphysema, unspecified; M79.7 Fibromyalgia; M05.9 Rheumatoid arthritis with rheumatoid factor, unspecified; I10 Essential (primary) hypertension; Z99.81 Dependence on supplemental oxygen; K44.9 Diaphragmatic hernia without obstruction or gangrene; Z87.891 Personal history of nicotine dependence; C61 Malignant neoplasm of prostate; Z86.19 Personal history of other infectious and parasitic diseases
CPT/HCPCS: 12345; 32551; 36600; 71045; 80053; 82728; 82803; 83605; 83615; 83735; 83880; 84100; 84145; 84484; 85025; 85378; 85384; 85610; 86140; 87040; 87426; 87635; 87804; 93005; 94640; 94664; 96375; 99284; J0690; J1100; J3010; J3490; J7030; J7614; J7644

== ENCOUNTER 2020-04-28 10:17 | Outpatient (CLI) | payer OTHER, SELFPAY ==
--- NOTE | 2020-04-28 | XR_ITS ---
WS: [id number] CHEST 2 VIEWS HISTORY: FEVER AND CHILLS COMPARISON: 04/20/2020 Lungs: Mild pulmonary hyperexpansion. Increased interstitial thickening at the lung bases is new sinc e 04/20/2020. No pleural effusion. Cardiac size: Mildly enlarged cardiac silhouette. Mediastinum/Aorta: Moderate sized hiatal hernia. Bones: Normal. XR/XR chest 2V* [id number] IMPRESSION: Chronic emphysema. Mild interstitial thickening at the lung bases is new since 04/20/2020 and may represent pneumonitis.
== END 2020-04-28 10:18 | disposition home or self-care (01) ==
LOC: RADOUTREAD 12:24
PROVIDERS: PCP Family Medicine; Visit Provider Family Medicine
DX: L98.9 Disorder of the skin and subcutaneous tissue, unspecified (principal)
CPT/HCPCS: 88304

== ENCOUNTER 2020-04-29 09:59 | Outpatient (CLI) | payer OTHER, SELFPAY | END 2020-04-29 10:00 | disposition home or self-care (01) | LOC: LAB 10:02 | PROVIDERS: PCP Family Medicine; Visit Provider Family Medicine | DX: R19.7 Diarrhea, unspecified (principal) | CPT/HCPCS: 87493; 87506 ==

== ENCOUNTER 2020-05-13 14:38 | Outpatient (CLI) | payer OTHER, SELFPAY ==
[2020-05-13 15:00] VITALS: BP 143/82; PULSE 94; RESP 16; TEMP 36.7; O2SAT 97
[2020-05-13 15:28] VITALS: BMI 29.4
--- NOTE | 2020-05-13 15:33 | PC.NURSE ---
A&O x3. Denies SOB or pain.
--- NOTE | 2020-05-13 15:38 | PC.NURSE ---
Labs obtained with IV start.
[2020-05-13 16:15] VITALS: BP 149/94; PULSE 86; RESP 16; O2SAT 97
--- NOTE | 2020-05-13 16:16 | PC.NURSE ---
Pt states bp may be elevated due to being off BP meds since hospitalization. Will monitor at home.
== END 2020-05-13 14:39 | disposition home or self-care (01) ==
LOC: RHEOACUTE 14:39
PROVIDERS: PCP Family Medicine; Visit Provider Internal Medicine Rheumatology
DX: M05.79 Rheumatoid arthritis with rheumatoid factor of multiple sites without organ or systems involvement (principal); Z79.899 Other long term (current) drug therapy
CPT/HCPCS: 80076; 82565; 85025; 85651; 86140; J1602

== ENCOUNTER → 2020-06-22 09:22 | Outpatient (BNVA) | payer OTHER, SELFPAY | PROVIDERS: PCP Family Medicine; Visit Provider Internal Medicine Rheumatology | DX: M05.79 Rheumatoid arthritis with rheumatoid factor of multiple sites without organ or systems involvement (principal); Z79.899 Other long term (current) drug therapy; M79.7 Fibromyalgia; Z87.891 Personal history of nicotine dependence | CPT/HCPCS: 99214 ==

== ENCOUNTER 2020-07-14 09:34 | Outpatient (CLI) | payer OTHER, SELFPAY ==
[2020-07-14 09:40] VITALS: BP 125/77; PULSE 76; RESP 16; TEMP 36.2; O2SAT 98
[2020-07-14 11:03] VITALS: BP 127/83; PULSE 74; RESP 16; O2SAT 98
== END 2020-07-14 09:35 | disposition home or self-care (01) ==
LOC: RHEOACUTE 09:35
PROVIDERS: PCP Family Medicine; Visit Provider Internal Medicine Rheumatology
DX: M05.79 Rheumatoid arthritis with rheumatoid factor of multiple sites without organ or systems involvement (principal)
CPT/HCPCS: 85025; 96365; J1602

== ENCOUNTER → 2020-08-03 09:03 | Outpatient (BNVA) | payer OTHER, SELFPAY | PROVIDERS: PCP Family Medicine; Visit Provider Internal Medicine Rheumatology | DX: Z79.899 Other long term (current) drug therapy (principal) | CPT/HCPCS: 36415; 80076; 82565; 85025; 85651; 86140 ==

== ENCOUNTER 2020-09-08 08:50 | Outpatient (CLI) | payer OTHER, SELFPAY ==
[2020-09-08 09:45] VITALS: BP 125/77; PULSE 76; RESP 16; TEMP 36.5; O2SAT 96
[2020-09-08 10:06] LABS: Basophils # 0.1 10^3/uL (0.0-0.1); Eosinophils # 0.2 10^3/uL (0.0-0.8); Eosinophils % 3.8 %; Hemoglobin 13.8 g/dL (11.7-16.6); Lymphocytes # 1.7 10^3/uL (0.8-4.8); Lymphocytes % 27.2 %; Mean Corpuscular HGB Conc 32.1 g/dL (30.0-36.0); Mean Corpuscular Hemoglobin 27.3 pg (28.0-34.0); Mean Corpuscular Volume 85.1 fL (80-94); Mean Platelet Volume 10.7 fL (7.4-10.4); Monocytes # 0.7 10^3/uL (0.2-0.9); Monocytes % 12.2 %; Neutrophils # 3.36 10^3/uL (1.8-7.7); Neutrophils % 55.5 %; Nucleated Red Blood Cells % 0 %; Platelet Count 207 10^3/cmm (130-400); Red Blood Count 5.05 10^6/uL (4.1-5.3); Red Cell Distribution Width 14.9 % (12.1-15.1); White Blood Count 6.1 10^3/uL (4.0-10.0)
[2020-09-08 10:34] LABS: Alanine Aminotransferase 19 U/L (0-41); C Reactive Protein 0.9 mg/L (0.0-4.9); Glomerular Filtration Rate 113.5 mL/min (90-130)
[2020-09-08 10:53] LABS: Erythrocyte Sedimentation Rate 10 mm/hr (0-10)
== END 2020-09-08 08:51 | disposition home or self-care (01) ==
LOC: RHEOACUTE 08:52 → ONCMED 08:53
PROVIDERS: PCP Family Medicine; Visit Provider Internal Medicine Rheumatology
DX: M05.79 Rheumatoid arthritis with rheumatoid factor of multiple sites without organ or systems involvement (principal)
CPT/HCPCS: 82565; 84460; 85025; 85651; 86140; 96365; J1602

== ENCOUNTER 2020-10-22 08:27 | Outpatient (CLI) | payer OTHER, SELFPAY ==
--- NOTE | 2020-10-22 08:33 | USCV_ITS ---
Hitesh Araya Age: 65 Gender: M : 1955 Exam Date: 10/22/2020 08:57 Ordering Phys: Mukesh Reyes MD Technologist: ZACH [place] [facility] [place]: NARROW PULSE PRESSURE BP: 128 / 88 HR: 74 Rhythm: Sinus Technical Quality: Adequate MEASUREMENTS (Male / Female) Normal Values 2D ECHO LV Diastolic Diameter PLAX 4.3 cm 4.2 - 5.9 / 3.9 - 5.3 cm LV Systolic Diameter PLAX 3.2 cm IVS Diastolic Thickness 1.7 cm 0.6 - 1.0 / 0.6 - 0.9 cm IVS Systolic Thickness 2.1 cm LVPW Diastolic Thickness 1.5 cm 0.6 - 1.0 / 0.6 - 0.9 cm LVPW Systolic Thickness 1.8 cm RV Chamber Size 4.8 cm LVOT Diameter 2.3 cm LV Ejection Fraction 2D Teich 53.0 % LV Ejection Fraction MOD 2C 65.8 % LV Ejection Fraction 2C AL 67.8 % LA Diameter 3.4 cm LA Width 4.0 cm LA Height 4.2 cm RA Width 3.6 cm RA Height 4.1 cm Aorta at Sinotubular Diameter 2.9 cm M-MODE LV Diastolic Diameter MM 4.6 cm 4.2 - 5.9 / 3.9 - 5.3 cm LV Systolic Diameter MM 2.9 cm LV Ejection Fraction MM Teich 67.5 % IVS Diastolic Thickness MM 1.8 cm 0.6 - 1.0 / 0.6 - 0.9 cm IVS Systolic Thickness MM 1.7 cm LVPW Diastolic Thickness MM 1.6 cm 0.6 - 1.0 / 0.6 - 0.9 cm LVPW Systolic Thickness MM 1.9 cm Aortic Annulus Diameter 3.6 cm LA Ao Ratio MM 0.9 MV E Point Septal Separation 0.5 cm DOPPLER AV Peak Velocity 131.0 cm/s LVOT Peak Velocity 90.0 cm/s AV Area Cont Eq vti 2.9 cm squared AV Area Cont Eq pk 2.9 cm squared MV Area PHT 3.3 cm squared Mitral E to A Ratio 0.6 MV E' Velocity 26.5 cm/s Mitral E to MV E' Ratio 8.6 Mitral E to LV E' Lateral Ratio 9.4 Mitral E to LV E' Septal Ratio 8.0 TR Peak Velocity 304.3 cm/s TR Peak Gradient 37.0 mmHg Right Atrial Pressure 3.0 mmHg Pulmonary Artery Systolic Pressu 40.0 mmHg PV Peak Velocity 115.0 cm/s RV Acceleration Time 0.1 s RV Ejection Time 0.3 s RV AcT/ET 0.3 FINDINGS Left Ventricle Normal left ventricular size and systolic function, EF 68 %. No regional wall motion abnormalities. Grade I/IV diastolic dysfunction (abnormal relaxation filling pattern), normal to mildly elevated filling pressures. Right Ventricle The right ventricle is normal in size and function. Right Atrium The right atrium is normal in size. Left Atrium The left atrium is normal in size. Mitral Valve No gross abnormalities noted. Aortic Valve No gross abnormalities noted. Tricuspid Valve Trace tricuspid valve regurgitation. Pulmonic Valve Trace pulmonary valve regurgitation. Pericardium Normal pericardium without effusion. Aorta Normal ascending aorta dimension. CONCLUSIONS Normal left ventricular size and systolic function, EF 68 %. No regional wall motion abnormalities. Grade I/IV diastolic dysfunction (abnormal relaxation filling pattern), normal to mildly elevated filling pressures. Trace tricuspid valve regurgitation. No significant stenotic or regurgitant lesions. Estimated pulmonary artery peak systolic pressure of 40 mmHg There is no pericardial effusion. There are no intracardiac masses. No previous study is available for comparison. Dr Carlos Garcia MD [facility] (Electronically Signed) Final Date: 22 October 2020 18:30 S
== END 2020-10-22 08:28 | disposition home or self-care (01) ==
LOC: US 08:30
PROVIDERS: PCP Family Medicine; Visit Provider Family Medicine
DX: R09.89 Other specified symptoms and signs involving the circulatory and respiratory systems (principal); I07.1 Rheumatic tricuspid insufficiency
CPT/HCPCS: 93306

== ENCOUNTER → 2020-11-05 08:43 | Outpatient (BNVA) | payer OTHER, SELFPAY | PROVIDERS: PCP Family Medicine; Visit Provider Internal Medicine Rheumatology | DX: M05.79 Rheumatoid arthritis with rheumatoid factor of multiple sites without organ or systems involvement (principal); Z79.899 Other long term (current) drug therapy; M79.7 Fibromyalgia; Z86.16 Personal history of COVID-19; Z87.891 Personal history of nicotine dependence | CPT/HCPCS: 99214 ==

== ENCOUNTER 2020-12-03 12:58 | Outpatient (CLI) | payer OTHER, SELFPAY ==
[2020-12-03 13:21] VITALS: BP 126/78; PULSE 71; RESP 18; TEMP 36.4; O2SAT 95
[2020-12-03] MEDS: sodium chloride 0.9% 250 ML IV (13:35)
[2020-12-03] MEDS: acetaminophen 325 mg Tablet 650 MG PO (13:48)
[2020-12-03] MEDS: diphenhydrAMINE 50 mg/mL SDV 1mL 25 MG IVP (13:49)
[2020-12-03 13:54] LABS: Basophils # 0.1 10^3/uL (0.0-0.1); Basophils % 0.9 %; Eosinophils # 0.1 10^3/uL (0.0-0.8); Eosinophils % 0.9 %; Hematocrit 40.6 % (42.0-52.0); Hemoglobin 13.3 g/dL (11.7-16.6); Lymphocytes # 1.4 10^3/uL (0.8-4.8); Lymphocytes % 19.5 %; Mean Corpuscular HGB Conc 32.8 g/dL (30.0-36.0); Mean Corpuscular Hemoglobin 28.8 pg (28.0-34.0); Mean Corpuscular Volume 87.9 fL (80-94); Mean Platelet Volume 10.3 fL (7.4-10.4); Monocytes # 0.5 10^3/uL (0.2-0.9); Monocytes % 7.3 %; Neutrophils # 4.99 10^3/uL (1.8-7.7); Neutrophils % 71.1 %; Nucleated Red Blood Cells % 0 %; Platelet Count 228 10^3/cmm (130-400); Red Blood Count 4.62 10^6/uL (4.1-5.3); Red Cell Distribution Width 13.7 % (12.1-15.1)
[2020-12-03 14:13] LABS: Alanine Aminotransferase 29 U/L (0-41); Albumin Level 4.4 g/dL (3.5-5.2); Alkaline Phosphatase 78 IU/L (40-130); Aspartate Amino Transferase 25 U/L (0-40); C Reactive Protein 0.8 mg/L (0.0-4.9); Globulin 2.2 g/dL (1.3-4.6); Glomerular Filtration Rate 135.6 mL/min (90-130); Total Bilirubin 0.4 mg/dL (0.15-1.2); Total Protein 6.6 g/dL (6.6-8.7)
[2020-12-03 14:34] LABS: Erythrocyte Sedimentation Rate 15 mm/hr (0-10)
[2020-12-03 15:00] VITALS: BP 125/84; PULSE 61; RESP 18; TEMP 36.1; O2SAT 96
== END 2020-12-03 12:59 | disposition home or self-care (01) ==
LOC: ONCMED 13:00
PROVIDERS: PCP Family Medicine; Visit Provider Internal Medicine Rheumatology
DX: M05.79 Rheumatoid arthritis with rheumatoid factor of multiple sites without organ or systems involvement (principal)
CPT/HCPCS: 80076; 82565; 85025; 85651; 86140; 96365; 96375; J1200; J2920; J3262; J7050

== ENCOUNTER 2020-12-31 13:01 | Outpatient (CLI) | payer OTHER, SELFPAY ==
[2020-12-31 13:17] VITALS: BP 123/77; PULSE 67; RESP 18; TEMP 36.6; O2SAT 97
[2020-12-31] MEDS: sodium chloride 0.9% 250 ML 75 ML IV (13:46)
[2020-12-31] MEDS: acetaminophen 325 mg Tablet 650 MG PO (13:48)
[2020-12-31] MEDS: diphenhydrAMINE 50 mg/mL SDV 1mL 25 MG IVP (13:49)
[2020-12-31 15:20] VITALS: BP 122/76; PULSE 57; RESP 18; TEMP 36.4; O2SAT 95
== END 2020-12-31 13:02 | disposition home or self-care (01) ==
LOC: ONCMED 13:04
PROVIDERS: PCP Family Medicine; Referring Provider Internal Medicine Rheumatology; Visit Provider Internal Medicine Rheumatology
DX: M05.79 Rheumatoid arthritis with rheumatoid factor of multiple sites without organ or systems involvement (principal)
CPT/HCPCS: 96365; 96375; J1200; J2920; J3262; J7050

== ENCOUNTER 2021-01-28 12:57 | Outpatient (CLI) | payer MEDICARE, SELFPAY ==
[2021-01-28 13:20] VITALS: BP 133/90; PULSE 65; RESP 18; TEMP 36.5; O2SAT 96
[2021-01-28] MEDS: acetaminophen 325 mg Tablet 650 MG PO (13:42)
[2021-01-28] MEDS: sodium chloride 0.9% 250 ML 75 ML IV (13:46)
[2021-01-28] MEDS: diphenhydrAMINE 50 mg/mL SDV 1mL 25 MG IVP (13:47)
[2021-01-28 14:47] LABS: Basophils # 0.1 10^3/uL (0.0-0.1); Basophils % 1.2 %; Eosinophils # 0.1 10^3/uL (0.0-0.8); Eosinophils % 0.9 %; Hematocrit 41.2 % (42.0-52.0); Hemoglobin 13.4 g/dL (11.7-16.6); Lymphocytes # 1.2 10^3/uL (0.8-4.8); Lymphocytes % 17.2 %; Mean Corpuscular HGB Conc 32.5 g/dL (30.0-36.0); Mean Corpuscular Hemoglobin 29.1 pg (28.0-34.0); Mean Corpuscular Volume 89.6 fL (80-94); Monocytes # 0.5 10^3/uL (0.2-0.9); Monocytes % 7.8 %; Neutrophils # 4.86 10^3/uL (1.8-7.7); Neutrophils % 72.6 %; Nucleated Red Blood Cells % 0 %; Platelet Count 196 10^3/cmm (130-400); Red Cell Distribution Width 15.2 % (12.1-15.1); White Blood Count 6.7 10^3/uL (4.0-10.0)
[2021-01-28 14:55] VITALS: BP 132/85; PULSE 59; RESP 18; TEMP 36.1; O2SAT 93
[2021-01-28 14:57] LABS: Alanine Aminotransferase 41 U/L (0-41); Albumin Level 4.1 g/dL (3.5-5.2); Alkaline Phosphatase 60 IU/L (40-130); Aspartate Amino Transferase 34 U/L (0-40); C Reactive Protein 0.8 mg/L (0.0-4.9); Globulin 2.2 g/dL (1.3-4.6); Glomerular Filtration Rate 84.7 mL/min (90-130); Total Bilirubin 0.6 mg/dL (0.15-1.2); Total Protein 6.3 g/dL (6.6-8.7)
[2021-01-28 15:24] LABS: Erythrocyte Sedimentation Rate 5 mm/hr (0-10)
== END 2021-01-28 12:58 | disposition home or self-care (01) ==
PROVIDERS: PCP Family Medicine; Visit Provider Internal Medicine Rheumatology
DX: M05.79 Rheumatoid arthritis with rheumatoid factor of multiple sites without organ or systems involvement (principal)
CPT/HCPCS: 80076; 82565; 85025; 85651; 86140; 96365; 96375; J1200; J2920; J3262; J7050

== ENCOUNTER → 2021-02-23 09:46 | Outpatient (BNVA) | payer MEDICARE, SELFPAY | PROVIDERS: PCP Family Medicine; Visit Provider Internal Medicine Rheumatology | DX: M05.79 Rheumatoid arthritis with rheumatoid factor of multiple sites without organ or systems involvement (principal); Z79.899 Other long term (current) drug therapy; Z71.89 Other specified counseling; M79.7 Fibromyalgia; Z86.16 Personal history of COVID-19; Z86.711 Personal history of pulmonary embolism; Z87.891 Personal history of nicotine dependence | CPT/HCPCS: 99214 ==

== ENCOUNTER 2021-03-11 12:51 | Outpatient (CLI) | payer MEDICARE, SELFPAY ==
[2021-03-11 12:59] VITALS: BP 133/91; PULSE 74; RESP 18; TEMP 36.1; O2SAT 96
[2021-03-11] MEDS: acetaminophen 325 mg Tablet 650 MG PO (13:44)
[2021-03-11] MEDS: sodium chloride 0.9% 250 ML 75 ML IV (13:47)
[2021-03-11] MEDS: diphenhydrAMINE 50 mg/mL SDV 1mL 25 MG IVP (13:48)
[2021-03-11 14:00] LABS: Basophils # 0.1 10^3/uL (0.0-0.1); Basophils % 1.1 %; Eosinophils # 0.1 10^3/uL (0.0-0.8); Eosinophils % 1.1 %; Hematocrit 41.3 % (42.0-52.0); Hemoglobin 13.4 g/dL (11.7-16.6); Lymphocytes # 1.1 10^3/uL (0.8-4.8); Lymphocytes % 12.3 %; Mean Corpuscular HGB Conc 32.4 g/dL (30.0-36.0); Mean Corpuscular Hemoglobin 29.5 pg (28.0-34.0); Mean Corpuscular Volume 90.8 fl (80-94); Mean Platelet Volume 10.7 fL (7.4-10.4); Monocytes # 0.7 10^3/uL (0.2-0.9); Monocytes % 8.7 %; Neutrophils # 6.52 10^3/uL (1.8-7.7); Neutrophils % 76.2 %; Nucleated Red Blood Cells % 0 %; Platelet Count 256 10^3/cmm (130-400); Red Blood Count 4.55 10^6/uL (4.1-5.3); White Blood Count 8.5 10^3/uL (4.0-10.0)
[2021-03-11 14:44] LABS: Alanine Aminotransferase 27 U/L (0-41); Albumin Level 4.3 g/dL (3.5-5.2); Alkaline Phosphatase 69 IU/L (40-130); Aspartate Amino Transferase 27 U/L (0-40); Globulin 2.5 g/dL (1.3-4.6); Glomerular Filtration Rate 113.2 mL/min (90-130); Total Bilirubin 0.6 mg/dL (0.15-1.2); Total Protein 6.8 g/dL (6.6-8.7)
[2021-03-11 14:50] VITALS: BP 134/92; PULSE 64; RESP 18; TEMP 36.1; O2SAT 97
[2021-03-11 15:34] LABS: Erythrocyte Sedimentation Rate 8 mm/hr (0-10)
== END 2021-03-11 12:52 | disposition home or self-care (01) ==
PROVIDERS: PCP Family Medicine; Referring Provider Internal Medicine Rheumatology; Visit Provider Internal Medicine Rheumatology
DX: M05.79 Rheumatoid arthritis with rheumatoid factor of multiple sites without organ or systems involvement (principal)
CPT/HCPCS: 80076; 82565; 85025; 85651; 96365; 96375; J0129; J1200; J7050

== ENCOUNTER 2021-03-25 12:54 | Outpatient (CLI) | payer MEDICARE, SELFPAY ==
[2021-03-25 13:01] VITALS: BP 133/88; PULSE 85; RESP 18; TEMP 36.4; O2SAT 96
[2021-03-25] MEDS: acetaminophen 325 mg Tablet 650 MG PO (13:21)
[2021-03-25] MEDS: sodium chloride 0.9% 250 ML 75 ML IV (13:23)
[2021-03-25] MEDS: diphenhydrAMINE 50 mg/mL SDV 1mL 25 MG IVP (13:23)
[2021-03-25 14:29] VITALS: BP 146/88; PULSE 66; RESP 18; TEMP 36.4; O2SAT 96
== END 2021-03-25 12:55 | disposition home or self-care (01) ==
PROVIDERS: PCP Family Medicine; Referring Provider Internal Medicine Rheumatology; Visit Provider Internal Medicine Rheumatology
DX: M05.79 Rheumatoid arthritis with rheumatoid factor of multiple sites without organ or systems involvement (principal)
CPT/HCPCS: 96365; 96375; J0129; J1200; J7050

== ENCOUNTER 2021-04-07 08:55 | Outpatient (CLI) | payer MEDICARE, SELFPAY ==
[2021-04-07 09:00] VITALS: BP 135/92; PULSE 66; RESP 18; TEMP 36.3; O2SAT 96
[2021-04-07] MEDS: acetaminophen 325 mg Tablet 650 MG PO (09:17)
[2021-04-07] MEDS: diphenhydrAMINE 50 mg/mL SDV 1mL 25 MG IV (09:19)
[2021-04-07] MEDS: sodium chloride 0.9% 250 ML 75 ML IV (09:19)
[2021-04-07 10:41] VITALS: BP 141/96; PULSE 61; RESP 18; TEMP 36.2; O2SAT 97
== END 2021-04-07 08:56 | disposition home or self-care (01) ==
PROVIDERS: PCP Family Medicine; Referring Provider Internal Medicine Rheumatology; Visit Provider Internal Medicine Rheumatology
DX: M05.79 Rheumatoid arthritis with rheumatoid factor of multiple sites without organ or systems involvement (principal)
CPT/HCPCS: 96365; 96375; J0129; J1200; J7050

== ENCOUNTER 2021-05-05 09:53 | Outpatient (CLI) | payer MEDICARE, SELFPAY ==
[2021-05-05 10:37] VITALS: BP 147/87; PULSE 78; RESP 20; TEMP 36.2; O2SAT 94
[2021-05-05] MEDS: sodium chloride 0.9% 250 ML 75 ML IV (10:40)
[2021-05-05] MEDS: acetaminophen 325 mg Tablet 650 MG PO (10:40)
[2021-05-05] MEDS: diphenhydrAMINE 50 mg/mL SDV 1mL 25 MG IV (10:42)
[2021-05-05 11:40] VITALS: BP 130/87; PULSE 71; RESP 18; TEMP 36.1; O2SAT 94
== END 2021-05-05 09:54 | disposition home or self-care (01) ==
PROVIDERS: PCP Family Medicine; Visit Provider Internal Medicine Rheumatology
DX: M05.79 Rheumatoid arthritis with rheumatoid factor of multiple sites without organ or systems involvement (principal)
CPT/HCPCS: 96365; 96375; J0129; J1200; J7050

== ENCOUNTER → 2021-05-31 15:02 | Outpatient (BNVA) | payer MEDICARE, SELFPAY | PROVIDERS: PCP Family Medicine; Visit Provider Internal Medicine Rheumatology | DX: M05.79 Rheumatoid arthritis with rheumatoid factor of multiple sites without organ or systems involvement (principal); M06.9 Rheumatoid arthritis, unspecified; Z71.89 Other specified counseling; Z79.899 Other long term (current) drug therapy | CPT/HCPCS: 36415; 80076; 82565; 85025; 86140 ==

== ENCOUNTER 2021-06-02 09:57 | Outpatient (CLI) | payer MEDICARE, SELFPAY ==
[2021-06-02 10:13] VITALS: BP 138/86; PULSE 81; RESP 18; TEMP 36.5; O2SAT 96
[2021-06-02] MEDS: acetaminophen 325 mg Tablet 650 MG PO (10:27)
[2021-06-02] MEDS: diphenhydrAMINE 50 mg/mL SDV 1mL 25 MG IV (10:29)
[2021-06-02] MEDS: sodium chloride 0.9% 250 ML 75 ML IV (10:29)
[2021-06-02 11:52] VITALS: BP 135/83; PULSE 68; RESP 18; TEMP 36.1; O2SAT 94
== END 2021-06-02 09:58 | disposition home or self-care (01) ==
PROVIDERS: PCP Family Medicine; Referring Provider Internal Medicine Rheumatology; Visit Provider Internal Medicine Rheumatology
DX: M05.79 Rheumatoid arthritis with rheumatoid factor of multiple sites without organ or systems involvement (principal)
CPT/HCPCS: 96365; 96375; J0129; J1200; J7050

== ENCOUNTER → 2021-06-29 14:34 | Outpatient (BNVA) | payer MEDICARE, SELFPAY | PROVIDERS: PCP Family Medicine; Visit Provider Internal Medicine Rheumatology | DX: M05.79 Rheumatoid arthritis with rheumatoid factor of multiple sites without organ or systems involvement (principal); Z79.899 Other long term (current) drug therapy; M79.7 Fibromyalgia; Z86.16 Personal history of COVID-19; Z86.711 Personal history of pulmonary embolism; Z71.89 Other specified counseling; Z87.891 Personal history of nicotine dependence | CPT/HCPCS: 99214 ==

== ENCOUNTER 2021-06-30 10:26 | Outpatient (CLI) | payer MEDICARE, SELFPAY ==
[2021-06-30 10:16] VITALS: BP 127/86; PULSE 72; RESP 18; TEMP 36.4; O2SAT 98
[2021-06-30] MEDS: sodium chloride 0.9% 250 ML 75 ML IV (10:39)
[2021-06-30] MEDS: acetaminophen 325 mg Tablet 650 MG PO (10:40)
[2021-06-30] MEDS: diphenhydrAMINE 50 mg/mL SDV 1mL 25 MG IV (10:41)
[2021-06-30 11:57] VITALS: BP 139/97; PULSE 64; RESP 18; TEMP 36.2; O2SAT 99
== END 2021-06-30 10:27 | disposition home or self-care (01) ==
PROVIDERS: PCP Family Medicine; Referring Provider Internal Medicine Rheumatology; Visit Provider Internal Medicine Rheumatology
DX: M05.79 Rheumatoid arthritis with rheumatoid factor of multiple sites without organ or systems involvement (principal)
CPT/HCPCS: 96365; 96375; J0129; J1200; J7050

== ENCOUNTER 2021-07-29 09:56 | Outpatient (CLI) | payer MEDICARE, SELFPAY ==
[2021-07-29 10:41] LABS: Basophils # 0.1 10^3/uL (0.0-0.1); Basophils % 1.4 %; Eosinophils # 0.4 10^3/uL (0.0-0.8); Eosinophils % 5.5 %; Hematocrit 43.9 % (42.0-52.0); Hemoglobin 14.3 g/dL (11.7-16.6); Lymphocytes % 15.5 %; Mean Corpuscular HGB Conc 32.6 g/dL (30.0-36.0); Mean Corpuscular Hemoglobin 27.6 pg (28.0-34.0); Mean Corpuscular Volume 84.6 fl (80-94); Mean Platelet Volume 10.3 fL (7.4-10.4); Monocytes % 15.8 %; Neutrophils # 3.88 10^3/uL (1.8-7.7); Neutrophils % 61.3 %; Nucleated Red Blood Cells % 0 %; Platelet Count 255 10^3/cmm (130-400); Red Blood Count 5.19 10^6/uL (4.1-5.3); Red Cell Distribution Width 15.3 % (12.1-15.1); White Blood Count 6.3 10^3/uL (4.0-10.0)
[2021-07-29] MEDS: acetaminophen 325 mg Tablet 650 MG PO (10:55)
[2021-07-29] MEDS: sodium chloride 0.9% 250 ML 30 ML IV (10:55)
[2021-07-29] MEDS: diphenhydrAMINE 50 mg/mL SDV 1mL 25 MG IV (10:55)
[2021-07-29 10:59] LABS: Erythrocyte Sedimentation Rate 20 mm/hr (0-10)
[2021-07-29 12:48] LABS: Alanine Aminotransferase 27 U/L (0-41); Albumin Level 4.2 g/dL (3.5-5.2); Alkaline Phosphatase 97 IU/L (40-130); Aspartate Amino Transferase 27 U/L (0-40); Globulin 2.9 g/dL (1.3-4.6); Glomerular Filtration Rate 135.2 mL/min (90-130); Total Bilirubin 0.5 mg/dL (0.15-1.2); Total Protein 7.1 g/dL (6.6-8.7)
== END 2021-07-29 09:57 | disposition home or self-care (01) ==
LOC: ONCMED 10:01
PROVIDERS: PCP Family Medicine; Referring Provider Internal Medicine Rheumatology; Visit Provider Internal Medicine Rheumatology
DX: M05.79 Rheumatoid arthritis with rheumatoid factor of multiple sites without organ or systems involvement (principal)
CPT/HCPCS: 80076; 82565; 85025; 85651; 96365; 96375; J0129; J1200; J7050

== ENCOUNTER 2021-08-26 10:55 | Outpatient (CLI) | payer MEDICARE, SELFPAY ==
[2021-08-26 11:10] VITALS: BP 147/90; PULSE 74; RESP 18; TEMP 36.4; O2SAT 95
[2021-08-26] MEDS: acetaminophen 325 mg Tablet 650 MG PO (11:33)
[2021-08-26] MEDS: sodium chloride 0.9% 250 ML 50 ML IV (11:35)
[2021-08-26] MEDS: diphenhydrAMINE 50 mg/mL SDV 1mL 25 MG IV (11:36)
[2021-08-26 12:31] VITALS: BP 149/89; PULSE 89; RESP 18; TEMP 36.6; O2SAT 96
== END 2021-08-26 10:56 | disposition home or self-care (01) ==
LOC: ONCMED 11:01
PROVIDERS: PCP Family Medicine; Visit Provider Internal Medicine Rheumatology
DX: M05.79 Rheumatoid arthritis with rheumatoid factor of multiple sites without organ or systems involvement (principal)
CPT/HCPCS: 96365; 96375; J0129; J1200; J7050

== ENCOUNTER 2021-09-23 10:51 | Outpatient (CLI) | payer MEDICARE, SELFPAY ==
[2021-09-23 11:14] VITALS: BP 126/88; PULSE 73; RESP 18; TEMP 36.3; O2SAT 95
[2021-09-23 11:29] LABS: Basophils # 0.1 10^3/uL (0.0-0.1); Eosinophils # 0.2 10^3/uL (0.0-0.8); Eosinophils % 3.8 %; Hematocrit 42.8 % (42.0-52.0); Hemoglobin 14.1 g/dL (11.7-16.6); Lymphocytes # 1.1 10^3/uL (0.8-4.8); Lymphocytes % 18.8 %; Mean Corpuscular HGB Conc 32.9 g/dL (30.0-36.0); Mean Corpuscular Hemoglobin 28.4 pg (28.0-34.0); Mean Corpuscular Volume 86.1 fl (80-94); Mean Platelet Volume 10.3 fL (7.4-10.4); Monocytes # 0.8 10^3/uL (0.2-0.9); Neutrophils # 3.73 10^3/uL (1.8-7.7); Neutrophils % 62.1 %; Nucleated Red Blood Cells % 0 %; Platelet Count 232 10^3/cmm (130-400); Red Blood Count 4.97 10^6/uL (4.1-5.3); Red Cell Distribution Width 15.4 % (12.1-15.1)
[2021-09-23 11:32] LABS: Erythrocyte Sedimentation Rate 10 mm/hr (0-10)
[2021-09-23] MEDS: acetaminophen 325 mg Tablet 650 MG PO (11:32)
[2021-09-23] MEDS: sodium chloride 0.9% 250 ML 50 ML IV (11:34)
[2021-09-23] MEDS: diphenhydrAMINE 50 mg/mL SDV 1mL 25 MG IV (11:34)
[2021-09-23 11:49] LABS: Alanine Aminotransferase 28 U/L (0-41); Albumin Level 4.3 g/dL (3.5-5.2); Alkaline Phosphatase 96 IU/L (40-130); Aspartate Amino Transferase 33 U/L (0-40); Glomerular Filtration Rate 113.2 mL/min (90-130); Total Bilirubin 0.6 mg/dL (0.15-1.2); Total Protein 7.3 g/dL (6.6-8.7)
[2021-09-23 12:32] VITALS: BP 134/90; PULSE 68; RESP 18; TEMP 36.3; O2SAT 94
== END 2021-09-23 10:52 | disposition home or self-care (01) ==
PROVIDERS: PCP Family Medicine; Referring Provider Internal Medicine Rheumatology; Visit Provider Internal Medicine Medical Oncology
DX: M05.79 Rheumatoid arthritis with rheumatoid factor of multiple sites without organ or systems involvement (principal); Z79.899 Other long term (current) drug therapy
CPT/HCPCS: 80076; 82565; 85025; 85651; 96365; 96375; J0129; J1200; J7050

== ENCOUNTER → 2021-10-14 10:48 | Outpatient (BNVA) | payer MEDICARE, SELFPAY | PROVIDERS: PCP Family Medicine; Visit Provider Internal Medicine Rheumatology | DX: M05.79 Rheumatoid arthritis with rheumatoid factor of multiple sites without organ or systems involvement (principal); Z79.899 Other long term (current) drug therapy; M79.7 Fibromyalgia; Z86.711 Personal history of pulmonary embolism; Z86.16 Personal history of COVID-19; Z71.89 Other specified counseling | CPT/HCPCS: 99214 ==

== ENCOUNTER 2021-10-21 10:48 | Outpatient (CLI) | payer MEDICARE, SELFPAY ==
[2021-10-21 11:12] VITALS: BP 137/94; PULSE 72; RESP 18; TEMP 36.2; O2SAT 97
[2021-10-21] MEDS: acetaminophen 325 mg Tablet 650 MG PO (11:21)
[2021-10-21] MEDS: sodium chloride 0.9% 250 ML 50 ML IV (11:24)
[2021-10-21] MEDS: diphenhydrAMINE 50 mg/mL SDV 1mL 25 MG IV (11:25)
[2021-10-21 12:24] VITALS: BP 127/89; PULSE 68; RESP 18; TEMP 36.3; O2SAT 96
== END 2021-10-21 10:49 | disposition home or self-care (01) ==
LOC: ONCMED 10:51
PROVIDERS: PCP Family Medicine; Referring Provider Internal Medicine Rheumatology; Visit Provider Internal Medicine Rheumatology
DX: M05.79 Rheumatoid arthritis with rheumatoid factor of multiple sites without organ or systems involvement (principal)
CPT/HCPCS: 96365; 96375; J0129; J1200; J7050

== ENCOUNTER 2021-11-18 10:57 | Outpatient (CLI) | payer MEDICARE, SELFPAY ==
[2021-11-18 11:27] VITALS: BP 116/77; PULSE 72; RESP 18; TEMP 36.3; O2SAT 92
[2021-11-18] MEDS: acetaminophen 325 mg Tablet 650 MG PO (11:41)
[2021-11-18] MEDS: diphenhydrAMINE 50 mg/mL SDV 1mL 25 MG IVP (11:44)
[2021-11-18] MEDS: sodium chloride 0.9% 250 ML 50 ML IV (11:44)
[2021-11-18 11:48] LABS: Basophils # 0.1 10^3/uL (0.0-0.1); Basophils % 0.7 %; Eosinophils # 0.1 10^3/uL (0.0-0.8); Eosinophils % 1.4 %; Hematocrit 41.5 % (42.0-52.0); Hemoglobin 13.4 g/dL (11.7-16.6); Lymphocytes # 0.6 10^3/uL (0.8-4.8); Lymphocytes % 6.8 %; Mean Corpuscular HGB Conc 32.3 g/dL (30.0-36.0); Mean Corpuscular Hemoglobin 27.8 pg (28.0-34.0); Mean Corpuscular Volume 86.1 fl (80-94); Mean Platelet Volume 10.7 fL (7.4-10.4); Monocytes # 0.9 10^3/uL (0.2-0.9); Monocytes % 10.2 %; Neutrophils # 6.86 10^3/uL (1.8-7.7); Neutrophils % 80.4 %; Nucleated Red Blood Cells % 0 %; Platelet Count 247 10^3/cmm (130-400); Red Blood Count 4.82 10^6/uL (4.1-5.3); Red Cell Distribution Width 15.9 % (12.1-15.1); White Blood Count 8.5 10^3/uL (4.0-10.0)
[2021-11-18 12:01] LABS: Erythrocyte Sedimentation Rate 6 mm/hr (0-10)
[2021-11-18 12:37] LABS: Alanine Aminotransferase 33 U/L (0-41); Albumin Level 4.3 g/dL (3.5-5.2); Alkaline Phosphatase 81 IU/L (40-130); Aspartate Amino Transferase 34 U/L (0-40); Globulin 2.8 g/dL (1.3-4.6); Total Bilirubin 0.6 mg/dL (0.15-1.2); Total Protein 7.1 g/dL (6.6-8.7)
[2021-11-18 13:01] VITALS: BP 118/81; PULSE 65; RESP 18; TEMP 36.4; O2SAT 94
== END 2021-11-18 10:58 | disposition home or self-care (01) ==
LOC: ONCMED 10:59
PROVIDERS: PCP Family Medicine; Referring Provider Internal Medicine Rheumatology; Visit Provider Internal Medicine Rheumatology
DX: M05.79 Rheumatoid arthritis with rheumatoid factor of multiple sites without organ or systems involvement (principal); Z79.899 Other long term (current) drug therapy
CPT/HCPCS: 80076; 82565; 85025; 85651; 96365; 96375; J0129; J1200; J7050

== ENCOUNTER 2021-12-16 10:19 | Outpatient (CLI) | payer MEDICARE, SELFPAY ==
[2021-12-16 10:32] VITALS: BP 119/81; PULSE 80; RESP 18; TEMP 36.2; O2SAT 95
[2021-12-16] MEDS: sodium chloride 0.9% 250 ML 50 ML IV (10:46)
[2021-12-16] MEDS: acetaminophen 325 mg Tablet 650 MG PO (10:49)
[2021-12-16] MEDS: diphenhydrAMINE 50 mg/mL SDV 1mL 25 MG IVP (10:50)
[2021-12-16 12:06] VITALS: BP 117/84; PULSE 69; RESP 18; TEMP 36.3; O2SAT 96
== END 2021-12-16 10:20 | disposition home or self-care (01) ==
PROVIDERS: PCP Family Medicine; Referring Provider Internal Medicine Rheumatology; Visit Provider Internal Medicine Rheumatology
DX: M05.79 Rheumatoid arthritis with rheumatoid factor of multiple sites without organ or systems involvement (principal)
CPT/HCPCS: 96365; 96375; J0129; J1200; J7050

== ENCOUNTER 2022-01-24 10:47 | Outpatient (CLI) | payer MEDICARE, SELFPAY ==
[2022-01-24 11:19] VITALS: BP 130/88; PULSE 64; RESP 18; TEMP 36.3; O2SAT 96
[2022-01-24 11:29] LABS: Basophils # 0.1 10^3/uL (0.0-0.1); Basophils % 0.9 %; Eosinophils # 0.1 10^3/uL (0.0-0.8); Eosinophils % 1.4 %; Hematocrit 43.6 % (42.0-52.0); Hemoglobin 14.3 g/dL (11.7-16.6); Lymphocytes # 0.9 10^3/uL (0.8-4.8); Lymphocytes % 9.9 %; Mean Corpuscular HGB Conc 32.8 g/dL (30.0-36.0); Mean Corpuscular Hemoglobin 28.4 pg (28.0-34.0); Mean Corpuscular Volume 86.7 fl (80-94); Mean Platelet Volume 10.9 fL (7.4-10.4); Monocytes # 0.7 10^3/uL (0.2-0.9); Monocytes % 7.6 %; Neutrophils # 7.39 10^3/uL (1.8-7.7); Neutrophils % 79.4 %; Nucleated Red Blood Cells % 0 %; Platelet Count 258 10^3/cmm (130-400); Red Blood Count 5.03 10^6/uL (4.1-5.3); White Blood Count 9.3 10^3/uL (4.0-10.0)
[2022-01-24 11:36] LABS: Erythrocyte Sedimentation Rate 11 mm/hr (0-10)
[2022-01-24] MEDS: acetaminophen 325 mg Tablet 650 MG PO (11:45)
[2022-01-24] MEDS: sodium chloride 0.9% 250 ML 50 ML IV (11:45)
[2022-01-24 11:46] LABS: Alanine Aminotransferase 22 U/L (0-41); Albumin Level 4.3 g/dL (3.5-5.2); Alkaline Phosphatase 78 IU/L (40-130); Aspartate Amino Transferase 24 U/L (0-40); Globulin 2.6 g/dL (1.3-4.6); Glomerular Filtration Rate 112.8 mL/min (90-130); Total Bilirubin 0.3 mg/dL (0.15-1.2); Total Protein 6.9 g/dL (6.6-8.7)
[2022-01-24] MEDS: diphenhydrAMINE 50 mg/mL SDV 1mL 25 MG IVP (11:47)
[2022-01-24 12:50] VITALS: BP 136/90; PULSE 62; RESP 18; TEMP 36.1; O2SAT 96
== END 2022-01-24 10:48 | disposition home or self-care (01) ==
PROVIDERS: PCP Family Medicine; Referring Provider Internal Medicine Rheumatology; Visit Provider Internal Medicine Rheumatology
DX: M05.79 Rheumatoid arthritis with rheumatoid factor of multiple sites without organ or systems involvement (principal); Z79.899 Other long term (current) drug therapy
CPT/HCPCS: 80076; 82565; 85025; 85651; 96365; 96375; J0129; J1200; J7050

== ENCOUNTER 2022-02-23 10:50 | Outpatient (CLI) | payer MEDICARE, SELFPAY ==
[2022-02-23 11:15] VITALS: BP 125/80; PULSE 74; RESP 18; TEMP 36.2; O2SAT 94
[2022-02-23] MEDS: sodium chloride 0.9% 250 ML 50 ML IV (11:34)
[2022-02-23] MEDS: acetaminophen 325 mg Tablet 650 MG PO (11:36)
[2022-02-23] MEDS: diphenhydrAMINE 50 mg/mL SDV 1mL 25 MG IVP (11:38)
[2022-02-23 12:40] VITALS: BP 128/84; PULSE 65; RESP 18; TEMP 36.2; O2SAT 95
== END 2022-02-23 10:51 | disposition home or self-care (01) ==
PROVIDERS: PCP Family Medicine; Visit Provider Internal Medicine Rheumatology
DX: M06.9 Rheumatoid arthritis, unspecified (principal)
CPT/HCPCS: 96365; 96375; J0129; J1200; J7050

== ENCOUNTER → 2022-02-24 09:19 | Outpatient (BNVA) | payer MEDICARE, SELFPAY | PROVIDERS: PCP Family Medicine; Visit Provider Internal Medicine Rheumatology | DX: M05.79 Rheumatoid arthritis with rheumatoid factor of multiple sites without organ or systems involvement (principal); Z79.899 Other long term (current) drug therapy; M79.7 Fibromyalgia; Z71.89 Other specified counseling; Z86.711 Personal history of pulmonary embolism; Z86.16 Personal history of COVID-19 | CPT/HCPCS: 99214 ==

== ENCOUNTER 2022-03-30 10:11 | Outpatient (CLI) | payer MEDICARE, SELFPAY ==
[2022-03-30 10:31] VITALS: BP 133/91; PULSE 73; RESP 18; TEMP 36.3; O2SAT 96
[2022-03-30] MEDS: sodium chloride 0.9% 250 ML 50 ML IV (10:44)
[2022-03-30] MEDS: acetaminophen 325 mg Tablet 650 MG PO (10:46)
[2022-03-30] MEDS: diphenhydrAMINE 50 mg/mL SDV 1mL 25 MG IVP (10:47)
[2022-03-30 10:54] LABS: Basophils # 0.1 10^3/uL (0.0-0.1); Basophils % 0.9 %; Eosinophils # 0.3 10^3/uL (0.0-0.8); Hematocrit 44.1 % (42.0-52.0); Hemoglobin 14.3 g/dL (11.7-16.6); Lymphocytes % 10.4 %; Mean Corpuscular HGB Conc 32.4 g/dL (30.0-36.0); Mean Corpuscular Hemoglobin 28.3 pg (28.0-34.0); Mean Corpuscular Volume 87.2 fl (80-94); Mean Platelet Volume 10.4 fL (7.4-10.4); Monocytes # 1.3 10^3/uL (0.2-0.9); Monocytes % 14.3 %; Neutrophils # 6.54 10^3/uL (1.8-7.7); Neutrophils % 70.4 %; Nucleated Red Blood Cells % 0 %; Platelet Count 267 10^3/cmm (130-400); Red Blood Count 5.06 10^6/uL (4.1-5.3); Red Cell Distribution Width 15.5 % (12.1-15.1); White Blood Count 9.3 10^3/uL (4.0-10.0)
[2022-03-30 11:07] LABS: Erythrocyte Sedimentation Rate 12 mm/hr (0-10)
[2022-03-30 11:15] LABS: Alanine Aminotransferase 28 U/L (0-41); Albumin Level 3.9 g/dL (3.5-5.2); Alkaline Phosphatase 105 U/L (40-130); Aspartate Amino Transferase 40 U/L (0-40); Globulin 3.1 g/dL (1.3-4.6); Glomerular Filtration Rate 96.7 mL/min (90-130); Total Bilirubin 0.6 mg/dL (0.15-1.2)
[2022-03-30 12:04] VITALS: BP 142/85; PULSE 67; RESP 18; TEMP 36.2; O2SAT 95
== END 2022-03-30 10:12 | disposition home or self-care (01) ==
PROVIDERS: PCP Family Medicine; Visit Provider Internal Medicine Rheumatology
DX: M06.9 Rheumatoid arthritis, unspecified (principal)
CPT/HCPCS: 80076; 82565; 85025; 85651; 96365; 96375; J0129; J1200; J7050

== ENCOUNTER 2022-04-27 09:50 | Outpatient (CLI) | payer MEDICARE, SELFPAY ==
[2022-04-27 10:14] VITALS: BP 128/84; PULSE 77; RESP 18; TEMP 36.4; O2SAT 96
[2022-04-27] MEDS: sodium chloride 0.9% 250 ML 50 ML IV (10:32)
[2022-04-27] MEDS: acetaminophen 325 mg Tablet 650 MG PO (10:33)
[2022-04-27] MEDS: diphenhydrAMINE 50 mg/mL SDV 1mL 25 MG IVP (10:34)
[2022-04-27 12:11] VITALS: BP 134/92; PULSE 69; RESP 18; TEMP 36.2; O2SAT 95
== END 2022-04-27 09:51 | disposition home or self-care (01) ==
PROVIDERS: PCP Family Medicine; Visit Provider Internal Medicine Rheumatology
DX: M06.9 Rheumatoid arthritis, unspecified (principal)
CPT/HCPCS: 96365; 96375; A4222; J0129; J1200; J7050

== ENCOUNTER → 2022-05-11 09:09 | Outpatient (BNVA) | payer MEDICARE, SELFPAY | PROVIDERS: PCP Family Medicine; Visit Provider Internal Medicine Rheumatology | DX: M05.79 Rheumatoid arthritis with rheumatoid factor of multiple sites without organ or systems involvement (principal); Z79.899 Other long term (current) drug therapy; Z71.89 Other specified counseling; Z86.16 Personal history of COVID-19; M79.7 Fibromyalgia; Z86.711 Personal history of pulmonary embolism | CPT/HCPCS: 99214 ==

== ENCOUNTER 2022-05-23 10:14 | Outpatient (CLI) | payer MEDICARE, SELFPAY ==
[2022-05-23 10:31] VITALS: BP 139/86; PULSE 69; RESP 18; TEMP 36.1; O2SAT 95
[2022-05-23 10:52] LABS: Basophils # 0.1 10^3/uL (0.0-0.1); Basophils % 1.4 %; Eosinophils # 0.3 10^3/uL (0.0-0.8); Hematocrit 44.6 % (42.0-52.0); Hemoglobin 14.4 g/dL (11.7-16.6); Lymphocytes # 1.1 10^3/uL (0.8-4.8); Lymphocytes % 15.3 %; Mean Corpuscular HGB Conc 32.3 g/dL (30.0-36.0); Mean Corpuscular Hemoglobin 28.4 pg (28.0-34.0); Mean Platelet Volume 10.6 fL (7.4-10.4); Monocytes # 0.5 10^3/uL (0.2-0.9); Monocytes % 7.4 %; Neutrophils # 4.98 10^3/uL (1.8-7.7); Neutrophils % 71.3 %; Nucleated Red Blood Cells % 0 %; Platelet Count 256 10^3/cmm (130-400); Red Blood Count 5.07 10^6/uL (4.1-5.3); Red Cell Distribution Width 15.5 % (12.1-15.1)
[2022-05-23] MEDS: acetaminophen 325 mg Tablet 650 MG PO (10:56)
[2022-05-23] MEDS: sodium chloride 0.9% 250 ML 50 ML IV (10:56)
[2022-05-23] MEDS: diphenhydrAMINE 50 mg/mL SDV 1mL 25 MG IVP (10:59)
[2022-05-23 11:09] LABS: Alanine Aminotransferase 36 U/L (0-41); Albumin Level 4.1 g/dL (3.5-5.2); Alkaline Phosphatase 79 U/L (40-130); Aspartate Amino Transferase 31 U/L (0-40); Globulin 3.2 g/dL (1.3-4.6); Glomerular Filtration Rate 96.7 mL/min (90-130); Total Bilirubin 0.5 mg/dL (0.15-1.2); Total Protein 7.3 g/dL (6.6-8.7)
[2022-05-23 11:18] LABS: Erythrocyte Sedimentation Rate 8 mm/hr (0-10)
[2022-05-23 12:19] VITALS: BP 144/97; PULSE 60; RESP 18; TEMP 36.4; O2SAT 100
== END 2022-05-23 10:15 | disposition home or self-care (01) ==
PROVIDERS: PCP Family Medicine; Referring Provider Internal Medicine Rheumatology; Visit Provider Internal Medicine Hematology & Oncology
DX: M05.79 Rheumatoid arthritis with rheumatoid factor of multiple sites without organ or systems involvement
CPT/HCPCS: 80076; 82565; 85025; 85651; 96365; 96375; A4222; J0129; J1200; J7050

== ENCOUNTER 2022-06-28 08:43 | Outpatient (CLI) | payer MEDICARE, SELFPAY ==
[2022-06-28 09:02] VITALS: BP 121/79; PULSE 76; RESP 18; TEMP 36.2; O2SAT 97
[2022-06-28] MEDS: sodium chloride 0.9% 250 ML 50 ML IV (09:19)
[2022-06-28] MEDS: acetaminophen 325 mg Tablet 650 MG PO (09:20)
[2022-06-28] MEDS: diphenhydrAMINE 50 mg/mL SDV 1mL 25 MG IVP (09:21)
[2022-06-28 10:34] VITALS: BP 127/90; PULSE 66; RESP 18; TEMP 36.2; O2SAT 96
== END 2022-06-28 08:44 | disposition home or self-care (01) ==
PROVIDERS: PCP Family Medicine; Referring Provider Internal Medicine Rheumatology; Visit Provider Internal Medicine Rheumatology
DX: M06.9 Rheumatoid arthritis, unspecified (principal)
CPT/HCPCS: 96365; 96375; A4222; J0129; J1200; J7050

== ENCOUNTER 2022-07-26 09:55 | Outpatient (CLI) | payer MEDICARE, SELFPAY ==
[2022-07-26 10:25] VITALS: BP 107/74; PULSE 96; RESP 18; TEMP 36; O2SAT 93
[2022-07-26 10:32] LABS: Basophils # 0.1 10^3/uL (0.0-0.1); Basophils % 0.8 %; Eosinophils # 0.6 10^3/uL (0.0-0.8); Eosinophils % 5.4 %; Hematocrit 46.8 % (42.0-52.0); Hemoglobin 15.1 g/dL (11.7-16.6); Lymphocytes # 1.2 10^3/uL (0.8-4.8); Lymphocytes % 10.1 %; Mean Corpuscular HGB Conc 32.3 g/dL (30.0-36.0); Mean Corpuscular Hemoglobin 27.9 pg (28.0-34.0); Mean Corpuscular Volume 86.3 fl (80-94); Monocytes # 1.2 10^3/uL (0.2-0.9); Monocytes % 10.3 %; Neutrophils # 8.48 10^3/uL (1.8-7.7); Nucleated Red Blood Cells % 0 %; Platelet Count 310 10^3/cmm (130-400); Red Blood Count 5.42 10^6/uL (4.1-5.3); Red Cell Distribution Width 15.2 % (12.1-15.1); White Blood Count 11.8 10^3/uL (4.0-10.0)
[2022-07-26] MEDS: sodium chloride 0.9% 250 ML 50 ML IV (10:38)
[2022-07-26 10:41] LABS: Erythrocyte Sedimentation Rate 19 mm/hr (0-10)
[2022-07-26] MEDS: acetaminophen 325 mg Tablet 650 MG PO (10:42)
[2022-07-26] MEDS: diphenhydrAMINE 50 mg/mL SDV 1mL 25 MG IVP (10:43)
[2022-07-26 10:57] LABS: Alanine Aminotransferase 26 U/L (0-41); Alkaline Phosphatase 92 U/L (40-130); Aspartate Amino Transferase 21 U/L (0-40); Globulin 3.3 g/dL (1.3-4.6); Glomerular Filtration Rate 84.4 mL/min (90-130); Total Bilirubin 0.4 mg/dL (0.15-1.2); Total Protein 7.3 g/dL (6.6-8.7)
[2022-07-26 11:56] VITALS: BP 134/88; PULSE 78; RESP 18; TEMP 36.2; O2SAT 97
== END 2022-07-26 09:56 | disposition home or self-care (01) ==
LOC: ONCMED 09:56
PROVIDERS: PCP Family Medicine; Visit Provider Internal Medicine Rheumatology
DX: M06.9 Rheumatoid arthritis, unspecified (principal); Z79.899 Other long term (current) drug therapy
CPT/HCPCS: 80076; 82565; 85025; 85651; 96365; 96375; A4222; J0129; J1200; J7050

== ENCOUNTER 2022-08-23 09:40 | Outpatient (CLI) | payer MEDICARE, SELFPAY ==
[2022-08-23 10:04] VITALS: BP 125/81; PULSE 80; RESP 18; TEMP 36.3; O2SAT 95
[2022-08-23] MEDS: sodium chloride 0.9% 250 ML 50 ML IV (10:16)
[2022-08-23] MEDS: acetaminophen 325 mg Tablet 650 MG PO (10:17)
[2022-08-23] MEDS: diphenhydrAMINE 50 mg/mL SDV 1mL 25 MG IVP (10:20)
[2022-08-23 11:45] VITALS: BP 153/94; PULSE 71; RESP 18; TEMP 36.4; O2SAT 96
== END 2022-08-23 09:41 | disposition home or self-care (01) ==
LOC: ONCMED 09:40
PROVIDERS: PCP Family Medicine; Visit Provider Internal Medicine Rheumatology
DX: M06.9 Rheumatoid arthritis, unspecified (principal)
CPT/HCPCS: 96365; 96375; A4222; J0129; J1200; J7050

== ENCOUNTER → 2022-08-30 10:09 | Outpatient (BNVA) | payer MEDICARE, SELFPAY | PROVIDERS: PCP Family Medicine; Visit Provider Internal Medicine Rheumatology | DX: M05.79 Rheumatoid arthritis with rheumatoid factor of multiple sites without organ or systems involvement (principal); Z79.899 Other long term (current) drug therapy; Z71.89 Other specified counseling; Z79.52 Long term (current) use of systemic steroids | CPT/HCPCS: 99214 ==

== ENCOUNTER 2022-09-22 08:47 | Oncology outpatient (recurring) (ONCR) | payer MEDICARE, SELFPAY ==
[2022-09-22] MEDS: acetaminophen 325 mg Tablet 650 MG PO (09:18)
[2022-09-22] MEDS: diphenhydrAMINE 50 mg/mL SDV 1mL 25 MG IVP (09:18)
[2022-09-22] MEDS: sodium chloride 0.9% 250 ML 75 ML IV (09:19)
[2022-09-22] MEDS: abatacept 1,000 MG in sodium chloride 0.9% (100 ml) 100 ML 200 MG IV (09:25)
[2022-09-22 10:26] VITALS: BP 123/83; PULSE 71; RESP 16; TEMP 36.6; O2SAT 96
== END 2022-10-07 23:59 | disposition home or self-care (01) ==
PROVIDERS: PCP Family Medicine; Visit Provider Internal Medicine Rheumatology
DX: Z51.12 Encounter for antineoplastic immunotherapy (principal); M06.9 Rheumatoid arthritis, unspecified
CPT/HCPCS: 96365; 96375; J0129; J1200; J7050

== ENCOUNTER 2022-10-20 08:53 | Oncology outpatient (recurring) (ONCR) | payer MEDICARE, SELFPAY ==
[2022-10-20 09:11] VITALS: BP 130/85; PULSE 64; RESP 18; TEMP 36.3; O2SAT 95
[2022-10-20] MEDS: sodium chloride 0.9% 250 ML 50 ML IV (09:35)
[2022-10-20] MEDS: acetaminophen 325 mg Tablet 650 MG PO (09:36)
[2022-10-20] MEDS: diphenhydrAMINE 50 mg/mL SDV 1mL 25 MG IVP (09:38)
[2022-10-20 09:42] LABS: Basophils # 0.1 10^3/uL (0.0-0.1); Basophils % 1.2 %; Eosinophils # 0.2 10^3/uL (0.0-0.8); Eosinophils % 3.6 %; Hematocrit 43.4 % (42.0-52.0); Hemoglobin 13.8 g/dL (11.7-16.6); Lymphocytes # 0.9 10^3/uL (0.8-4.8); Lymphocytes % 18.5 %; Mean Corpuscular HGB Conc 31.8 g/dL (30.0-36.0); Mean Corpuscular Hemoglobin 28.2 pg (28.0-34.0); Mean Corpuscular Volume 88.6 fl (80-94); Mean Platelet Volume 9.8 fL (7.4-10.4); Monocytes # 0.7 10^3/uL (0.2-0.9); Monocytes % 13.9 %; Neutrophils % 62.2 %; Nucleated Red Blood Cells % 0 %; Platelet Count 241 10^3/cmm (130-400); Red Cell Distribution Width 15.9 % (12.1-15.1)
[2022-10-20] MEDS: abatacept 1,000 MG in sodium chloride 0.9% (100 ml) 100 ML 200 MG IV (09:51)
[2022-10-20 09:55] LABS: Alanine Aminotransferase 28 U/L (0-41); Alkaline Phosphatase 66 U/L (40-130); Anion Gap 14.6 (5-19); Aspartate Amino Transferase 27 U/L (0-40); Blood Urea Nitrogen 14 mg/dL (8-23); Calcium 8.6 mg/dL (8.5-10.5); Carbon Dioxide 23 mmol/L (22-29); Chloride 110 mmol/L (98-107); Globulin 2.9 g/dL (1.3-4.6); Glomerular Filtration Rate 96.7 mL/min (90-130); Glucose 116 mg/dL (65-115); Osmolality Calculated 299 mOsm/kg (285-295); Potassium 3.6 mmol/L (3.5-5.1); Sodium 144 mmol/L (136-145); Total Bilirubin 0.7 mg/dL (0.15-1.2); Total Protein 6.9 g/dL (6.6-8.7)
[2022-10-20 10:43] VITALS: BP 138/96; PULSE 66; RESP 18; TEMP 36.4; O2SAT 95
== END 2022-11-06 23:59 | disposition home or self-care (01) ==
PROVIDERS: PCP Family Medicine; Visit Provider Internal Medicine Rheumatology
DX: M06.9 Rheumatoid arthritis, unspecified (principal)
CPT/HCPCS: 80053; 85025; 86140; 96374; 96375; 96413; J0129; J1200; J7050

== ENCOUNTER 2022-11-17 08:51 | Oncology outpatient (recurring) (ONCR) | payer MEDICARE, SELFPAY ==
[2022-11-17 09:18] VITALS: BP 143/82; PULSE 81; RESP 18; TEMP 36.2; O2SAT 93
[2022-11-17] MEDS: sodium chloride 0.9% (100 ml) 100 ML 25 ML (10:22)
[2022-11-17] MEDS: acetaminophen 325 mg Tablet 650 MG PO (10:25)
[2022-11-17] MEDS: diphenhydrAMINE 50 mg/mL SDV 1mL 25 MG IVP (10:26)
[2022-11-17] MEDS: abatacept 1,000 MG in sodium chloride 0.9% (100 ml) 100 ML 200 MG IV (10:27)
[2022-11-17 11:14] VITALS: BP 119/77; PULSE 69; RESP 18; TEMP 36.2; O2SAT 96
== END 2022-12-07 23:59 | disposition home or self-care (01) ==
PROVIDERS: PCP Family Medicine; Visit Provider Internal Medicine Rheumatology
DX: M06.9 Rheumatoid arthritis, unspecified (principal)
CPT/HCPCS: 96365; 96375; 96413; J0129; J1200

== ENCOUNTER → 2022-11-22 09:10 | Outpatient (BNVA) | payer MEDICARE, SELFPAY | PROVIDERS: PCP Family Medicine; Visit Provider Internal Medicine Rheumatology | DX: M05.79 Rheumatoid arthritis with rheumatoid factor of multiple sites without organ or systems involvement (principal); Z79.899 Other long term (current) drug therapy; Z71.89 Other specified counseling; M79.7 Fibromyalgia | CPT/HCPCS: 99214 ==

== ENCOUNTER 2022-12-15 08:53 | Oncology outpatient (recurring) (ONCR) | payer MEDICARE, SELFPAY ==
[2022-12-15 09:20] VITALS: BP 123/80; PULSE 69; RESP 18; TEMP 36.6; O2SAT 95
[2022-12-15] MEDS: acetaminophen 325 mg Tablet 650 MG PO (09:37)
[2022-12-15] MEDS: diphenhydrAMINE 50 mg/mL SDV 1mL 25 MG IVP (09:38)
[2022-12-15] MEDS: sodium chloride 0.9% 250 ML 75 ML IV (09:48)
[2022-12-15] MEDS: abatacept 1,000 MG in sodium chloride 0.9% (100 ml) 100 ML 200 MG IV (09:58)
[2022-12-15 10:40] VITALS: BP 118/78; PULSE 67; RESP 16; TEMP 36.1; O2SAT 96
== END 2023-01-06 23:59 | disposition home or self-care (01) ==
PROVIDERS: PCP Family Medicine; Visit Provider Internal Medicine Rheumatology
DX: M06.9 Rheumatoid arthritis, unspecified (principal)
CPT/HCPCS: 96365; 96375; J0129; J1200; J7050

== ENCOUNTER 2022-12-28 10:03 | Outpatient (CLI) | payer MEDICARE, SELFPAY ==
--- NOTE | 2022-12-28 10:11 | CT_ITS ---
WS: [id number] LDCT LUNG CANCER SCREENING TECHNIQUE: Noncontrast CT of the chest with coronal and sagittal reformatted images. CLINICAL INFORMATION: HISTORY OF TOBACCO USE COMPARISON: CTa 020 DLP: 107.61 mGy.cm DIvol: Mean CTDIvol: 2.20 (mGy) All CT scans at [facility] use at least one of these dose optimization techniques: automat ed exposure control; mA and/or kV adjustment per patient size (includes targeted exams where dose is matched to clinical indication); or iterative reconstruction. FINDINGS:Mild chronic emphysematous changes. No acute pulmonary infiltrates. No focal pneumonia or pl eural fluid. Bulla formation in the LEFT upper lobe inferiorly. No suspicious pulmonary parenchymal o pacities. Large esophageal hiatal hernia with intrathoracic stomach. Herniation of a portion of the transverse colon into the large hiatal hernia. No evidence of obstruction visualized. Hernia displaces the heart anteriorly. Normal caliber thoracic aorta. Mild aortic calcification. No mediastinal or hilar lymphadenopathy. No axillary lymphadenopathy. Adrenal glands are normal. Cholecystectomy clips. CT/CT lung screening [id number] IMPRESSION: Large esophageal hiatal hernia with intrathoracic stomach. Herniation of a loop transverse colon into the large hiatal hernia. No evidence of obstruction visu alized. This can be further evaluated with CT abdomen pelvis. LUNG-RADS: 1S-Negative with Significant Findings FOLLOW UP: 12 Month: Continue annual screening with LDCT
== END 2022-12-28 10:04 | disposition home or self-care (01) ==
LOC: RAD 10:06
PROVIDERS: PCP Family Medicine; Visit Provider Family Medicine
DX: Z12.2 Encounter for screening for malignant neoplasm of respiratory organs (principal); Z87.891 Personal history of nicotine dependence; K44.9 Diaphragmatic hernia without obstruction or gangrene
CPT/HCPCS: 71271

== ENCOUNTER 2023-01-03 13:20 | Outpatient (CLI) | payer MEDICARE, SELFPAY ==
--- NOTE | 2023-01-03 | XR_ITS ---
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 This corresponds to a T score score of -0.7 and Z score of -0.9. Left femoral neck bone mineral density measures 1.030 g/cm2. This corresponds to a T score of -0.5 an d Z score of -0.3. Right femoral neck bone mineral density measures 0.977 g/cm2. This corresponds to a T score -0.9of an d Z score of -0.7. Mean femoral neck bone mineral density measures 1.003 g/cm2. This corresponds to a T score of -0.7 an d Z score of -0.5. XR/XR DEXA axial skeleton* [id number] IMPRESSION: Normal bone mineralization. Patient's FRAX calculated 10 year probability for major osteoporotic fracture i s 11.8 % and osteoporotic hip fracture is 2.3%. Bone mineral density lumbar spine has increased 8.7% since 2012 Bone mineral density in the femoral necks decreased -1.4% since 2012
== END 2023-01-03 13:21 | disposition home or self-care (01) ==
PROVIDERS: PCP Family Medicine; Visit Provider Family Medicine
DX: Z13.820 Encounter for screening for osteoporosis (principal); Z79.52 Long term (current) use of systemic steroids
CPT/HCPCS: 77080

== ENCOUNTER 2023-01-12 14:38 | Oncology outpatient (recurring) (ONCR) | payer MEDICARE, SELFPAY ==
[2023-01-12 14:45] VITALS: BP 129/87; PULSE 77; RESP 16; TEMP 36.3; O2SAT 93
[2023-01-12] MEDS: sodium chloride 0.9% 250 ML 75 ML IV (15:00)
[2023-01-12] MEDS: acetaminophen 325 mg Tablet 650 MG PO (15:00)
[2023-01-12] MEDS: diphenhydrAMINE 50 mg/mL SDV 1mL 25 MG IVP (15:01)
[2023-01-12] MEDS: abatacept 1,000 MG in sodium chloride 0.9% (100 ml) 100 ML 200 MG IV (15:28)
[2023-01-12 16:05] VITALS: BP 139/95; PULSE 72; RESP 16; TEMP 36.7; O2SAT 95
== END 2023-02-06 23:59 | disposition home or self-care (01) ==
PROVIDERS: PCP Family Medicine; Visit Provider Internal Medicine Rheumatology
DX: M06.9 Rheumatoid arthritis, unspecified (principal)
CPT/HCPCS: 96375; 96413; J0129; J1200; J7050

== ENCOUNTER → 2023-02-07 09:30 | Outpatient (BNVA) | payer MEDICARE, SELFPAY | PROVIDERS: PCP Family Medicine; Visit Provider Internal Medicine Rheumatology | DX: M05.79 Rheumatoid arthritis with rheumatoid factor of multiple sites without organ or systems involvement (principal); Z79.899 Other long term (current) drug therapy; Z71.89 Other specified counseling; M79.7 Fibromyalgia | CPT/HCPCS: 99214 ==

== ENCOUNTER 2023-03-09 08:00 | Oncology outpatient (recurring) (ONCR) | payer MEDICARE, SELFPAY ==
[2023-02-09 08:07] VITALS: BP 131/80; PULSE 78; RESP 18; TEMP 35.7; O2SAT 94
[2023-02-09] MEDS: diphenhydrAMINE 50 mg/mL SDV 1mL 25 MG IVP (08:17)
[2023-02-09] MEDS: acetaminophen 325 mg Tablet 650 MG PO (08:17)
[2023-02-09] MEDS: sodium chloride 0.9% 250 ML 75 ML IV (08:17)
[2023-02-09] MEDS: abatacept 1,000 MG in sodium chloride 0.9% (100 ml) 100 ML 200 MG IV (08:50)
[2023-02-09 09:31] VITALS: BP 114/76; PULSE 69; RESP 18; TEMP 36.1; O2SAT 97
[2023-03-09 08:15] VITALS: BP 139/87; PULSE 65; RESP 17; TEMP 36.1; O2SAT 94; BMI 29.8
[2023-03-09 08:28] LABS: Basophils # 0.1 10^3/uL (0.0-0.1); Basophils % 1.2 %; Eosinophils # 0.3 10^3/uL (0.0-0.8); Eosinophils % 4.8 %; Hematocrit 41.9 % (37-53); Lymphocytes # 1.1 10^3/uL (0.8-4.8); Lymphocytes % 18.3 %; Mean Corpuscular HGB Conc 33.2 g/dL (30-55); Mean Corpuscular Hemoglobin 29.1 pg (27-33); Mean Corpuscular Volume 87.7 fl (82-101); Mean Platelet Volume 10.2 fL (7.4-10.4); Monocytes # 0.6 10^3/uL (0.2-0.9); Monocytes % 10.5 %; Neutrophils # 3.81 10^3/uL (1.8-7.7); Neutrophils % 64.7 %; Nucleated Red Blood Cells % 0 %; Platelet Count 221 10^3/cmm (157-399); Red Blood Count 4.78 10^6/uL (3.85-5.65); White Blood Count 5.89 10^3/uL (3.29-11.43)
[2023-03-09] MEDS: acetaminophen 325 mg Tablet 650 MG PO (08:33)
[2023-03-09] MEDS: diphenhydrAMINE 50 mg/mL SDV 1mL 25 MG IVP (08:35)
[2023-03-09] MEDS: sodium chloride 0.9% 250 ML 75 ML IV (08:35)
[2023-03-09 08:54] LABS: Alanine Aminotransferase 24 U/L (0-41); Albumin Level 3.9 g/dL (3.5-5.2); Alkaline Phosphatase 68 U/L (40-130); Aspartate Amino Transferase 32 U/L (0-40); C Reactive Protein 10.4 mg/L (0.0-4.9); Globulin 2.5 g/dL (1.3-4.6); Glomerular Filtration Rate 84.2 mL/min (90-130); Total Bilirubin 0.7 mg/dL (0.15-1.2); Total Protein 6.4 g/dL (6.6-8.7)
[2023-03-09] MEDS: abatacept 1,000 MG in sodium chloride 0.9% (100 ml) 100 ML 200 MG IV (09:06)
[2023-03-09 10:05] VITALS: BP 138/89; PULSE 62; RESP 16; TEMP 36.3; O2SAT 97
== END 2023-03-09 23:59 | disposition home or self-care (01) ==
PROVIDERS: PCP Family Medicine; Visit Provider Internal Medicine Rheumatology
DX: M06.9 Rheumatoid arthritis, unspecified (principal); Z79.899 Other long term (current) drug therapy
CPT/HCPCS: 80076; 82565; 85025; 86140; 96365; 96375; 96413; J0129; J1200; J7050

== ENCOUNTER 2023-04-06 07:55 | Oncology outpatient (recurring) (ONCR) | payer MEDICARE, SELFPAY ==
[2023-04-06] MEDS: acetaminophen 325 mg Tablet 650 MG PO (09:04)
[2023-04-06] MEDS: sodium chloride 0.9% 250 ML 75 ML IV (09:04)
[2023-04-06] MEDS: diphenhydrAMINE 50 mg/mL SDV 1mL 25 MG IVP (09:05)
[2023-04-06] MEDS: abatacept 1,000 MG in sodium chloride 0.9% (100 ml) 100 ML 200 MG IV (09:44)
[2023-04-06 14:52] VITALS: BP 144/99; PULSE 60; O2SAT 96
== END 2023-04-08 23:59 | disposition home or self-care (01) ==
PROVIDERS: PCP Family Medicine; Visit Provider Internal Medicine Rheumatology
DX: M06.9 Rheumatoid arthritis, unspecified (principal)
CPT/HCPCS: 96375; 96413; J0129; J1200; J7050

== ENCOUNTER 2023-05-04 07:51 | Oncology outpatient (recurring) (ONCR) | payer MEDICARE, SELFPAY ==
[2023-05-04 07:57] VITALS: BMI 29.3
[2023-05-04 08:02] VITALS: BP 117/86; PULSE 67; RESP 16; TEMP 35.9; O2SAT 96
[2023-05-04] MEDS: acetaminophen 325 mg Tablet 650 MG PO (08:27)
[2023-05-04] MEDS: sodium chloride 0.9% 250 ML 75 ML IV (08:31)
[2023-05-04] MEDS: diphenhydrAMINE 50 mg/mL SDV 1mL 25 MG IVP (08:32)
[2023-05-04] MEDS: abatacept 1,000 MG in sodium chloride 0.9% (100 ml) 100 ML 200 MG IV (09:13)
[2023-05-04 10:20] VITALS: BP 135/90; PULSE 61; RESP 17; TEMP 35.6; O2SAT 98
== END 2023-05-09 23:59 | disposition home or self-care (01) ==
PROVIDERS: PCP Family Medicine; Visit Provider Internal Medicine Rheumatology
DX: M06.9 Rheumatoid arthritis, unspecified (principal)
CPT/HCPCS: 96365; 96375; J0129; J1200; J7050

== ENCOUNTER → 2023-05-16 09:18 | Outpatient (BNVA) | payer MEDICARE, SELFPAY | PROVIDERS: PCP Family Medicine; Visit Provider Internal Medicine Rheumatology | DX: M05.79 Rheumatoid arthritis with rheumatoid factor of multiple sites without organ or systems involvement (principal); Z79.899 Other long term (current) drug therapy; Z71.89 Other specified counseling; M79.7 Fibromyalgia | CPT/HCPCS: 99214 ==

== ENCOUNTER 2023-06-05 07:50 | Oncology outpatient (recurring) (ONCR) | payer MEDICARE, SELFPAY ==
[2023-06-05] MEDS: sodium chloride 0.9% 250 ML 75 ML IV (08:29)
[2023-06-05] MEDS: acetaminophen 325 mg Tablet 650 MG PO (08:29)
[2023-06-05] MEDS: diphenhydrAMINE 50 mg/mL SDV 1mL 25 MG IVP (08:29)
[2023-06-05 08:33] LABS: Basophils # 0.1 10^3/uL (0.0-0.1); Basophils % 1.5 %; Eosinophils # 0.2 10^3/uL (0.0-0.8); Eosinophils % 3.7 %; Hematocrit 47.2 % (37-53); Lymphocytes % 15.9 %; Mean Corpuscular Hemoglobin 28.8 pg (27-33); Mean Corpuscular Volume 90.1 fl (82-101); Monocytes # 0.8 10^3/uL (0.2-0.9); Monocytes % 12.6 %; Neutrophils % 65.8 %; Nucleated Red Blood Cells % 0 %; Platelet Count 226 10^3/cmm (157-399); Red Blood Count 5.24 10^6/uL (3.85-5.65); Red Cell Distribution Width 14.1 % (12.1-15.1); White Blood Count 6.53 10^3/uL (3.29-11.43)
[2023-06-05 08:46] LABS: Erythrocyte Sedimentation Rate 8 mm/hr (0-10)
[2023-06-05 08:51] LABS: Alanine Aminotransferase 22 U/L (0-41); Albumin Level 4.3 g/dL (3.5-5.2); Alkaline Phosphatase 75 U/L (40-130); Aspartate Amino Transferase 25 U/L (0-40); Globulin 3.1 g/dL (1.3-4.6); Glomerular Filtration Rate 84.2 mL/min (90-130); Total Bilirubin 0.7 mg/dL (0.15-1.2); Total Protein 7.4 g/dL (6.6-8.7)
[2023-06-05] MEDS: abatacept 1,000 MG in sodium chloride 0.9% (100 ml) 100 ML 200 MG IV (09:03)
[2023-06-05 09:52] VITALS: BP 153/100; PULSE 63; O2SAT 98
== END 2023-06-08 23:59 | disposition home or self-care (01) ==
PROVIDERS: PCP Family Medicine; Visit Provider Internal Medicine Rheumatology
DX: M06.9 Rheumatoid arthritis, unspecified (principal)
CPT/HCPCS: 80076; 82565; 85025; 85651; 86140; 96365; J0129; J1200; J7050

== ENCOUNTER 2023-06-06 15:50 | Emergency (ER) | payer MEDICARE, SELFPAY ==
[2023-06-06 16:20] VITALS: BP 135/95; PULSE 105; RESP 16; TEMP 36.4; O2SAT 96; BMI 29.8
--- NOTE | 2023-06-06 16:47 | ED_ITS ---
HPI - Extremity Injury (Lower) General: Chief Complaint: Extremity Injury, Lower Stated Complaint: hurt right leg Time Seen by Provider: 06/06/23 16:33 Source: patient Mode of arrival: ambulatory Limitations: no limitations History of Present Illness: Patient is a very nice 68-year-old male who presents to ED today with complaint of an injury to his right lower extremity that he sustained just prior to arrival. 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 Patient states he is still able to ambulate on the extremity but with difficulty. He has noticed some swelling and edema to the medial aspect of the knee although reportedly this has improved since onset. He has abrasions/ecchymosis. Last tetanus is up-to-date. He has no other injuries or complaints at this time. MD complaint: knee injury Onset (ago): hour(s) Injury: Right: knee Type of Injury: blunt and other (crush) Place: home Severity: moderate Relieving factors: immobilization Exacerbating factors: palpation Context: direct blow and other (crush) Associated symptoms: Reports no associated symptoms Other symptoms: none Review of Systems Musc: Reports: joint pain (R knee) and joint swelling; Denies: extremity pain, extremity swelling, joint redness, joint warmth or limited range of motion Skin/Breast: Reports: other (bruising/contusion R knee) Neuro: Denies: numbness in extremities, weakness in extremities or sensory changes PFS ED PFSH: Medical History Immunization counseling Pulmonary emboli Hypertension Hiatal hernia Seropositive rheumatoid arthritis of multiple sites Fibromyalgia Surgical History H/O chest tube placement Hx of cholecystectomy S/P prostatectomy Locally advanced prostate cancer status post prostatectomy Family History Other CAD (coronary artery disease) Cancer Family history of premature coronary artery disease Hypertension Stroke Denies family history of Rheumatoid arthritis Diabetes Lupus Social History Smoking and tobacco/nicotine status: never used tobacco/nicotine Quit status (tobacco/nicotine): has quit using Year quit tobacco: 2019 Former quit date comment: Hx of 1PPD x 50 Years Alcohol intake: never Substance/Drug Use: never Lives independently: Yes Household members: spouse Housing: House Marital status: Current occupational status: retired Do you think of yourself as: Straight/Heterosexual Current gender identity: Male Physical Exam Const: COMMON NORMALS: no acute distress, average body habitus, patient oriented x3, no limitations, healthy appearing, alert and well nourished Extremity: COMMON NORMALS: full ROM, capillary refill normal, no clubbing, cyanosis or edema and no pedal edema GENERAL: Yes normal exam except as noted RIGHT LOWER EXTREMITY: Yes knee joint OTHER: pt has abrasion and contusion/abrasion to medial R knee; he surprisingly has full seemingly painless ROM of knee joint; he has localized swelling/edema to medial portion but nothing distally; he can flex/extend toes without pain; DP/PT pulses, sensation, cap refill all normal Neuro: COMMON NORMALS: patient oriented x3 SENSORIUM/ORIENTATION: Yes alert Course Vital Signs: Vital signs: Vital Signs Temperature 97.5 F L 06/06/23 16:20 Pulse Rate 105 H 06/06/23 16:20 Respiratory Rate 16 06/06/23 16:20 Blood Pressure 135/95 06/06/23 16:20 Pulse Oximetry 96 06/06/23 16:20 Oxygen Delivery Me thod Room Air 06/06/23 16:20 MDM - Extremity Injury (Lower) Medical Decision Making XR pending overread but personal interpretation is negative for acute fx/bony injury. Clinically no concern for a compartment syndrome. He has significant contusion/abrasion/underlying hematoma to medial knee but maintains full ROM. Recommend ice/elevation, pain medications, and will place on antibiotics. Return to ED precautions given. Medical Records I reviewed the patient's medical records. Lab Data Radiology Impressions Knee X-Ray 06/06/23 16:47 IMPRESSION: No acute findings. XR interpretation done by ED provider, pending radiology final review Discharge Plan Discharge Patient Disposition: Home Clinical Impression: Contusion of right knee Qualifiers: Encounter type: initial encounter Qualified Code(s): S80.01XA - Contusion of right knee, initial encounter Condition: Stable Prescriptions: New hydrocodone-acetaminophen 5-325 mg tablet 1 tab PO Q6H PRN (Reason: pain) Qty: 14 0RF cephalexin 500 mg capsule 500 mg PO Q6H 7 Days Qty: 28 0RF No Action valsartan 160 mg tablet 160 mg PO DAILY amlodipine 2.5 mg tablet 2.5 mg PO DAILY rosuvastatin 10 mg tablet 10 mg PO DAILY pantoprazole 20 mg tablet,delayed release (DR/EC) See Rx Instructions .ROUTE .COMPLEX Qty: 90 1RF Dose Instruction: TAKE 1 TABLET BY MOUTH DAILY Rx Instructions: TAKE 1 TABLET BY MOUTH DAILY prednisone 5 mg tablet 5 mg .ROUTE DAILY Qty: 90 1RF Rx Instructions: 5 mg daily; leflunomide 20 mg tablet 20 mg PO DAILY Qty: 30 3RF Breztri Aerosphere 160-9-4.8 mcg/actuation HFA aerosol inhaler 2 inh inhalation BID Orencia (with maltose) 250 mg recon soln IV Discharge Orders: Discharge ED (Routine); Ordered 06/06/23 Ordered By: Zelda Chaudhary Referrals: Mukesh Reyes MD [Primary Care Provider] - Patient Instructions: Opioid Safety, Pain Management Coding Level of Care Code ED Medical Billing And Coding Specialist for Amy Raymond
--- NOTE | 2023-06-06 16:47 | XRR_ITS ---
PROCEDURE INFORMATION: Exam: XR Right Knee Exam date and time: 06/06/2023 4:55 PM Age: 68 years old Clinical indication: Injury or trauma; Fall; Sprain or strain; Patella or knee; Right TECHNIQUE: Imaging protocol: Radiologic exam of the right knee. Views: 3 views. COMPARISON: No relevant prior studies available. FINDINGS: Bones/joints: No fracture or other acute abnormality. Minor early degenerative changes are seen. Soft tissues: Normal. XR/XR knee RT 3V* [id number] IMPRESSION: No acute findings.
[2023-06-06] MEDS: acetaminophen 500 mg Tablet 1000 MG PO (17:01)
[2023-06-06] MEDS: HYDROcodone-acetaminophen 5-325 mg Tablet 2 TAB PO (17:18)
[2023-06-06] MEDS: cephALEXin 500 mg Capsule PO (17:19)
== END 2023-06-06 17:26 | disposition home or self-care (01) ==
PROVIDERS: Emergency Provider Physician Assistant; PCP Family Medicine
DX: S80.01XA Contusion of right knee, initial encounter (principal); Z87.891 Personal history of nicotine dependence; I10 Essential (primary) hypertension; W22.8XXA Striking against or struck by other objects, initial encounter
CPT/HCPCS: 73562; 99283

== ENCOUNTER 2023-07-04 07:53 | Oncology outpatient (recurring) (ONCR) | payer MEDICARE, SELFPAY ==
[2023-07-04 08:04] VITALS: BMI 29.4
[2023-07-04] MEDS: acetaminophen 325 mg Tablet 650 MG PO (08:18)
[2023-07-04] MEDS: sodium chloride 0.9% 250 ML 75 ML IV (08:19)
[2023-07-04] MEDS: diphenhydrAMINE 50 mg/mL SDV 1mL 25 MG IVP (08:19)
[2023-07-04] MEDS: abatacept 1,000 MG in sodium chloride 0.9% (100 ml) 100 ML 200 MG IV (08:44)
[2023-07-04 09:24] VITALS: BP 121/79; PULSE 69; RESP 17; TEMP 36.4; O2SAT 96
== END 2023-07-09 23:59 | disposition home or self-care (01) ==
PROVIDERS: PCP Family Medicine; Visit Provider Internal Medicine Rheumatology
DX: M06.9 Rheumatoid arthritis, unspecified (principal)
CPT/HCPCS: 96375; 96413; J0129; J1200; J7050

== ENCOUNTER 2023-08-01 07:49 | Oncology outpatient (recurring) (ONCR) | payer MEDICARE, SELFPAY ==
[2023-08-01 08:17] VITALS: BP 120/80; PULSE 77; RESP 17; TEMP 36; O2SAT 95
[2023-08-01] MEDS: acetaminophen 325 mg Tablet 650 MG PO (08:33)
[2023-08-01] MEDS: sodium chloride 0.9% 250 ML 75 ML IV (08:35)
[2023-08-01] MEDS: diphenhydrAMINE 50 mg/mL SDV 1mL 25 MG IVP (08:37)
[2023-08-01] MEDS: methylPREDNISolone sod succ 40 mg/mL INJ IVP (08:41)
[2023-08-01] MEDS: abatacept 1,000 MG in sodium chloride 0.9% (100 ml) 100 ML 200 MG IV (09:08)
[2023-08-01 09:50] VITALS: BP 129/89; PULSE 68; RESP 18; TEMP 36.6; O2SAT 92
== END 2023-08-09 23:59 | disposition home or self-care (01) ==
PROVIDERS: PCP Family Medicine; Visit Provider Internal Medicine Rheumatology
DX: M06.9 Rheumatoid arthritis, unspecified (principal)
CPT/HCPCS: 96365; 96375; A4222; J0129; J1200; J2920; J7050

== ENCOUNTER 2023-08-29 07:55 | Oncology outpatient (recurring) (ONCR) | payer MEDICARE, SELFPAY ==
[2023-08-29 08:01] VITALS: BP 151/78; PULSE 78; RESP 18; TEMP 36.6; O2SAT 96
[2023-08-29] MEDS: sodium chloride 0.9% 250 ML 75 ML IV (08:24)
[2023-08-29 08:25] LABS: Basophils # 0.1 10^3/uL (0.0-0.1); Basophils % 1.4 %; Eosinophils # 0.3 10^3/uL (0.0-0.8); Eosinophils % 4.7 %; Hematocrit 45.7 % (37-53); Lymphocytes # 1.2 10^3/uL (0.8-4.8); Lymphocytes % 21.7 %; Mean Corpuscular HGB Conc 32.2 g/dL (30-55); Mean Corpuscular Hemoglobin 27.1 pg (27-33); Mean Corpuscular Volume 84.3 fl (82-101); Monocytes # 0.5 10^3/uL (0.2-0.9); Monocytes % 8.3 %; Neutrophils # 3.51 10^3/uL (1.8-7.7); Neutrophils % 63.5 %; Nucleated Red Blood Cells % 0 %; Platelet Count 232 10^3/cmm (157-399); Red Blood Count 5.42 10^6/uL (3.85-5.65); Red Cell Distribution Width 13.5 % (12.1-15.1); White Blood Count 5.53 10^3/uL (3.29-11.43)
[2023-08-29] MEDS: acetaminophen 325 mg Tablet 650 MG PO (08:26)
[2023-08-29] MEDS: diphenhydrAMINE 50 mg/mL SDV 1mL 25 MG IVP (08:26)
[2023-08-29 08:47] LABS: Alanine Aminotransferase 24 U/L (0-41); Alkaline Phosphatase 83 U/L (40-130); Aspartate Amino Transferase 24 U/L (0-40); Creatinine Clr Calc Pharmacy 122.8007; Glomerular Filtration Rate 96.4 mL/min (90-130); Total Bilirubin 0.4 mg/dL (0.15-1.2)
[2023-08-29] MEDS: abatacept 1,000 MG in sodium chloride 0.9% (100 ml) 100 ML 200 MG IV (09:08)
[2023-08-29 09:47] VITALS: BP 142/95; PULSE 86; TEMP 36.2; O2SAT 95
== END 2023-09-07 23:59 | disposition home or self-care (01) ==
LOC: ONCMED 07:55
PROVIDERS: PCP Family Medicine; Visit Provider Internal Medicine Rheumatology
DX: M06.9 Rheumatoid arthritis, unspecified (principal)
CPT/HCPCS: 80076; 82565; 85025; 86140; 96365; 96375; A4222; J0129; J1200; J7050

== ENCOUNTER → 2023-09-07 14:21 | Outpatient (BNVA) | payer MEDICARE, SELFPAY | PROVIDERS: PCP Family Medicine; Visit Provider Internal Medicine Rheumatology | DX: M05.79 Rheumatoid arthritis with rheumatoid factor of multiple sites without organ or systems involvement (principal); Z79.899 Other long term (current) drug therapy; Z71.89 Other specified counseling; M79.7 Fibromyalgia | CPT/HCPCS: 99214 ==

== ENCOUNTER 2023-09-26 07:51 | Oncology outpatient (recurring) (ONCR) | payer MEDICARE, SELFPAY ==
[2023-09-26 08:08] VITALS: BP 146/88; PULSE 64; RESP 16; TEMP 36.6; O2SAT 96
[2023-09-26] MEDS: sodium chloride 0.9% 250 ML 75 ML IV (08:44)
[2023-09-26] MEDS: acetaminophen 325 mg Tablet 650 MG PO (08:44)
[2023-09-26] MEDS: diphenhydrAMINE 50 mg/mL SDV 1mL 25 MG IVP (08:45)
[2023-09-26] MEDS: abatacept 1,000 MG in sodium chloride 0.9% (100 ml) 100 ML 200 MG IV (09:03)
[2023-09-26 09:38] VITALS: BP 151/99; PULSE 63; O2SAT 93
== END 2023-10-08 23:59 | disposition home or self-care (01) ==
PROVIDERS: PCP Family Medicine; Visit Provider Internal Medicine Rheumatology
DX: M06.9 Rheumatoid arthritis, unspecified (principal)
CPT/HCPCS: 96365; 96375; A4222; J0129; J1200; J7050

== ENCOUNTER 2023-10-24 07:46 | Oncology outpatient (recurring) (ONCR) | payer MEDICARE, SELFPAY ==
[2023-10-24] MEDS: acetaminophen 325 mg Tablet 650 MG PO (08:35)
[2023-10-24] MEDS: sodium chloride 0.9% 250 ML 75 ML IV (08:35)
[2023-10-24] MEDS: diphenhydrAMINE 50 mg/mL SDV 1mL 25 MG IVP (08:36)
[2023-10-24 08:43] VITALS: BP 138/96; PULSE 77; TEMP 36.4; O2SAT 95
[2023-10-24] MEDS: abatacept 1,000 MG in sodium chloride 0.9% (100 ml) 100 ML 200 MG IV (09:01)
[2023-10-24 09:40] VITALS: BP 145/91; PULSE 72; RESP 16; TEMP 36.3; O2SAT 92
== END 2023-11-07 23:59 | disposition home or self-care (01) ==
LOC: ONCMED 07:46
PROVIDERS: PCP Family Medicine; Visit Provider Internal Medicine Rheumatology
DX: M06.9 Rheumatoid arthritis, unspecified (principal)
CPT/HCPCS: 96365; 96375; A4222; J0129; J1200; J7050

== ENCOUNTER 2023-11-21 07:53 | Oncology outpatient (recurring) (ONCR) | payer MEDICARE, SELFPAY ==
[2023-11-21 08:15] VITALS: BP 145/92; PULSE 79; RESP 17; TEMP 36.9; O2SAT 96
[2023-11-21 08:19] LABS: Basophils # 0.1 10^3/uL (0.0-0.1); Basophils % 1.3 %; Eosinophils # 0.3 10^3/uL (0.0-0.8); Eosinophils % 4.1 %; Hematocrit 43.1 % (37-53); Lymphocytes # 1.3 10^3/uL (0.8-4.8); Lymphocytes % 16.3 %; Mean Corpuscular Hemoglobin 26.3 pg (27-33); Mean Corpuscular Volume 82.3 fl (82-101); Mean Platelet Volume 10.7 fL (7.4-10.4); Monocytes # 0.7 10^3/uL (0.2-0.9); Neutrophils # 5.25 10^3/uL (1.8-7.7); Neutrophils % 68.6 %; Nucleated Red Blood Cells % 0 %; Platelet Count 238 10^3/cmm (157-399); Red Blood Count 5.24 10^6/uL (3.85-5.65); Red Cell Distribution Width 15.2 % (12.1-15.1); White Blood Count 7.65 10^3/uL (3.29-11.43)
[2023-11-21] MEDS: acetaminophen 325 mg Tablet 650 MG PO (08:22)
[2023-11-21] MEDS: sodium chloride 0.9% 250 ML 75 ML IV (08:23)
[2023-11-21] MEDS: diphenhydrAMINE 50 mg/mL SDV 1mL 25 MG IVP (08:31)
[2023-11-21] MEDS: abatacept 1,000 MG in sodium chloride 0.9% (100 ml) 100 ML 200 MG IV (08:45)
[2023-11-21 09:01] LABS: Alanine Aminotransferase 12 U/L (0-41); Albumin Level 3.9 g/dL (3.5-5.2); Alkaline Phosphatase 77 U/L (40-130); Aspartate Amino Transferase 21 U/L (0-40); Creatinine Clr Calc Pharmacy 120.5012; Globulin 3.3 g/dL (1.3-4.6); Glomerular Filtration Rate 96.4 mL/min (90-130); Total Bilirubin 0.4 mg/dL (0.15-1.2); Total Protein 7.2 g/dL (6.6-8.7)
[2023-11-21 09:25] VITALS: BP 127/86; PULSE 72; RESP 16; TEMP 36.2; O2SAT 92
== END 2023-12-08 23:59 | disposition home or self-care (01) ==
LOC: ONCMED 07:53
PROVIDERS: PCP Family Medicine; Visit Provider Internal Medicine Rheumatology
DX: M06.9 Rheumatoid arthritis, unspecified (principal)
CPT/HCPCS: 80076; 82565; 85025; 86140; 96365; A4222; J0129; J1200; J7050

== ENCOUNTER 2023-12-20 07:46 | Oncology outpatient (recurring) (ONCR) | payer MEDICARE, SELFPAY ==
[2023-12-20 08:10] VITALS: BP 134/91; PULSE 68; RESP 16; TEMP 36.2; O2SAT 94
[2023-12-20] MEDS: acetaminophen 325 mg Tablet 650 MG PO (08:30)
[2023-12-20] MEDS: diphenhydrAMINE 50 mg/mL SDV 1mL 25 MG IVP (08:30)
[2023-12-20] MEDS: sodium chloride 0.9% 250 ML 75 ML IV (08:30)
[2023-12-20] MEDS: abatacept 1,000 MG in sodium chloride 0.9% (100 ml) 100 ML 200 MG IV (09:10)
[2023-12-20 09:45] VITALS: BP 150/93; PULSE 66; RESP 16; TEMP 36.5; O2SAT 92
== END 2024-01-07 23:59 | disposition home or self-care (01) ==
PROVIDERS: PCP Family Medicine; Visit Provider Internal Medicine Rheumatology
DX: M06.9 Rheumatoid arthritis, unspecified (principal)
CPT/HCPCS: 96365; 96375; A4222; J0129; J1200; J7050

== ENCOUNTER 2024-01-17 07:50 | Oncology outpatient (recurring) (ONCR) | payer MEDICARE, SELFPAY ==
[2024-01-17 08:29] VITALS: BP 153/98; PULSE 56; RESP 16; TEMP 36.6; O2SAT 97
[2024-01-17] MEDS: acetaminophen 325 mg Tablet 650 MG PO (08:46)
[2024-01-17] MEDS: diphenhydrAMINE 50 mg/mL SDV 1mL 25 MG IVP (08:47)
[2024-01-17] MEDS: sodium chloride 0.9% 250 ML 75 ML IV (08:48)
[2024-01-17 09:45] VITALS: BP 158/108
[2024-01-17] MEDS: cloNIDine 0.1 mg Tablet PO (09:45)
[2024-01-17 10:32] VITALS: BP 144/88
[2024-01-17] MEDS: abatacept 1,000 MG in sodium chloride 0.9% (100 ml) 100 ML 200 MG IV (10:32)
[2024-01-17 11:25] VITALS: BP 130/87; PULSE 63; RESP 17; TEMP 36; O2SAT 98
== END 2024-02-07 23:59 | disposition home or self-care (01) ==
PROVIDERS: PCP Family Medicine; Visit Provider Internal Medicine Rheumatology
DX: M06.9 Rheumatoid arthritis, unspecified (principal)
CPT/HCPCS: 96365; 96375; J0129; J1200; J7050

== ENCOUNTER 2024-02-14 07:55 | Oncology outpatient (recurring) (ONCR) | payer MEDICARE, SELFPAY ==
[2024-02-14 08:10] VITALS: BP 130/85; PULSE 76; RESP 16; TEMP 36.4; O2SAT 95
[2024-02-14 08:26] LABS: Basophils # 0.1 10^3/uL (0.0-0.1); Basophils % 1.6 %; Eosinophils # 0.2 10^3/uL (0.0-0.8); Eosinophils % 3.4 %; Hematocrit 43.9 % (37-53); Lymphocytes # 1.1 10^3/uL (0.8-4.8); Lymphocytes % 16.5 %; Mean Corpuscular HGB Conc 32.1 g/dL (30-55); Mean Corpuscular Hemoglobin 26.5 pg (27-33); Mean Corpuscular Volume 82.5 fl (82-101); Mean Platelet Volume 10.5 fL (7.4-10.4); Monocytes # 0.6 10^3/uL (0.2-0.9); Neutrophils % 69.2 %; Nucleated Red Blood Cells % 0 %; Platelet Count 248 10^3/cmm (157-399); Red Blood Count 5.32 10^6/uL (3.85-5.65); Red Cell Distribution Width 14.6 % (12.1-15.1); White Blood Count 6.79 10^3/uL (3.29-11.43)
[2024-02-14] MEDS: sodium chloride 0.9% 250 ML 75 ML IV (08:34)
[2024-02-14] MEDS: diphenhydrAMINE 50 mg/mL SDV 1mL 25 MG IVP (08:34)
[2024-02-14] MEDS: acetaminophen 325 mg Tablet 650 MG PO (08:34)
[2024-02-14 08:49] LABS: Alanine Aminotransferase 15 U/L (0-41); Albumin Level 4.1 g/dL (3.5-5.2); Alkaline Phosphatase 74 U/L (40-130); Aspartate Amino Transferase 20 U/L (0-40); C Reactive Protein 4.2 mg/L (0.0-4.9); Globulin 3.1 g/dL (1.3-4.6); Glomerular Filtration Rate 96.1 mL/min (90-130); Total Bilirubin 0.3 mg/dL (0.15-1.2); Total Protein 7.2 g/dL (6.6-8.7)
[2024-02-14] MEDS: abatacept 1,000 MG in sodium chloride 0.9% (100 ml) 100 ML 200 MG IV (08:57)
[2024-02-14 09:31] VITALS: BP 139/92; PULSE 73; RESP 16; TEMP 36.6; O2SAT 96
== END 2024-03-09 23:59 | disposition home or self-care (01) ==
PROVIDERS: PCP Family Medicine; Visit Provider Internal Medicine Rheumatology
DX: M06.9 Rheumatoid arthritis, unspecified (principal); Z79.899 Other long term (current) drug therapy
CPT/HCPCS: 80076; 82565; 85025; 86140; 96365; 96375; A4222; J0129; J1200; J7050

== ENCOUNTER → 2024-02-15 13:24 | Outpatient (BNVA) | payer MEDICARE, SELFPAY | PROVIDERS: PCP Family Medicine; Visit Provider Internal Medicine Rheumatology | DX: M05.79 Rheumatoid arthritis with rheumatoid factor of multiple sites without organ or systems involvement (principal); Z79.899 Other long term (current) drug therapy; Z71.85 Encounter for immunization safety counseling; M79.7 Fibromyalgia; Z85.46 Personal history of malignant neoplasm of prostate | CPT/HCPCS: 99214 ==

== ENCOUNTER 2024-09-10 09:10 | Emergency (ER) | payer MEDICARE, SELFPAY ==
[2024-09-10] VITALS (85 sets, daily range): BP systolic 106–166; BP diastolic 70–111; PULSE 65–102; RESP 15–43; TEMP 36.7; O2SAT 88–96; BMI 30.4
--- NOTE | 2024-09-10 09:11 | CT_ITS ---
WS: [id number] CT CHEST ANGIOGRAPHY WITH REFORMATS HISTORY: Shortness of breath left pneumothorax TECHNIQUE: Contiguous axial images are obtained through the chest during arterial injection of intravenous contrast. Images are reconstructed to evaluate the pulmonary arteries. MIP imaging also reviewed. All CT scans at [facility] use at least one of these dose optimization techniques: automated exposure control; mA and/or kV adjustment per patient size (includes targeted exams where dose is matched to clinical indication); or iterative reconstruction. CONTRAST: Omnipaque 350; 100 mL IV. DLP: 561.43 mGy.cm COMPARISON: 12/28/2022 Large left-sided tension pneumothorax. Shift of the midline structures to the RIGHT. Small caliber LEFT atria. Small cavity LEFT ventricle. RIGHT lung is being compressed and poorly expanded. Collapsed atelectatic and compressed LEFT lung. No pulmonary embolism is identified. Pulmonary arteries are being distorted around a large hiatal hernia. Stomach, mesenteric fat and colon and small bowel are both contained within the hiatal hernia sac. This large intrathoracic hernia has progressed since 2007. Prior cholecystectomy. No adrenal mass. No osseous destruction. CT/CT angio chest PE protcl [id number] IMPRESSION: 1. Large LEFT tension pneumothorax. 2. Compressed RIGHT lung due to the tension pneumothorax. Shift of the midline structures to the RIGHT. 3. No pulmonary embolism. 4. Large hiatal hernia containing stomach, colon and small bowel displacing th e midline structures including the heart. Notified Elver Weir DO at 09/10/2024 11:24 AM.
[2024-09-10 10:34] LABS: ABG PCO2 31.8 mmHg (35-45); ABG PH Result 7.45 (7.35-7.45); Arterial Blood Gas Hematocrit 48.1 % (42-52); Base Excess ABG -0.7 mmol/L (-2.0-2.0); Blood Gas Allen Test Pos; Blood Gas Operator Identificat MONRO; Blood Gas Sample Site Radial, right; Blood Gas Sample Type Arterial; Carboxyhemoglobin < 0.3 %THgb (0.4-20.1); HCO3 ABG 22.3 mmol/L (22-26); HGB O2 Sat 91.9 % (95-100); Ionized Calcium Level - ABG 1.2 mmol/L (1.1-1.4); Oxygen Device NC; Oxygen Saturation ABG 92.7; PO2 ABG 67.7 mmHg (80.0-100.0); PO2 FiO2 Ratio Arterial Blood 211; Potassium Level - ABG 3.7 mmol/L (3.5-5.0); Total Hemoglobin 15.7 g/dL (14-18)
[2024-09-10 10:41] LABS: Basophils # 0.1 10^3/uL (0.0-0.1); Basophils % 0.9 %; Eosinophils # 0.2 10^3/uL (0.0-0.8); Eosinophils % 1.9 %; Hematocrit 46.7 % (37-53); Lymphocytes # 1.4 10^3/uL (0.8-4.8); Lymphocytes % 14.8 %; Mean Corpuscular HGB Conc 32.3 g/dL (30-55); Mean Corpuscular Hemoglobin 27.2 pg (27-33); Mean Corpuscular Volume 84.1 fl (82-101); Mean Platelet Volume 10.3 fL (7.4-10.4); Monocytes # 0.6 10^3/uL (0.2-0.9); Monocytes % 6.4 %; Neutrophils # 6.93 10^3/uL (1.8-7.7); Nucleated Red Blood Cells % 0 %; Platelet Count 289 10^3/cmm (157-399); Red Blood Count 5.55 10^6/uL (3.85-5.65); Red Cell Distribution Width 14.9 % (12.1-15.1); White Blood Count 9.24 10^3/uL (3.29-11.43)
[2024-09-10] MEDS: dexamethasone 10 mg/mL INJ IVP (10:49)
[2024-09-10] MEDS: ipratropium-albuterol 3 mL Neb INHALATION (10:51)
[2024-09-10 11:08] LABS: Alanine Aminotransferase 22 U/L (0-41); Albumin Level 4.4 g/dL (3.5-5.2); Alkaline Phosphatase 82 U/L (40-130); Anion Gap 15.9 (5-19); Aspartate Amino Transferase 21 U/L (0-40); Blood Urea Nitrogen 20 mg/dL (8-23); Calcium 9.5 mg/dL (8.5-10.5); Carbon Dioxide 22 mmol/L (22-29); Chloride 108 mmol/L (98-107); Globulin 3.2 g/dL (1.3-4.6); Glomerular Filtration Rate 83.9 mL/min (90-130); Glucose 127 mg/dL (65-115); Osmolality Calculated 298 mOsm/kg (285-295); Potassium 3.9 mmol/L (3.5-5.1); Sodium 142 mmol/L (136-145); Total Bilirubin 0.4 mg/dL (0.15-1.2); Total Protein 7.6 g/dL (6.6-8.7)
[2024-09-10] MEDS: iohexol 350 mg/mL 500 mL Btl (per mL) IV (11:23)
--- NOTE | 2024-09-10 11:53 | PC.PHAR ---
Pt unable to verify his medications. Med rec completed by phone with [facility] and [facility] with last fill dates and day supply. Multiple orders for Prednisone recently. Left on med chart with fill dates.
[2024-09-10 12:06] LABS: Partial Thromboplastin Time 35.6 SECONDS (23.9-36.7)
[2024-09-10] MEDS: lidocaine 1% 10 ML INJ INJECTION (12:13)
--- NOTE | 2024-09-10 12:13 | XRR_ITS ---
PROCEDURE INFORMATION: Exam: XR Chest Exam date and time: 09/10/2024 12:13 PM Age: 69 years old Clinical indication: Device placement; Chest tube TECHNIQUE: Imaging protocol: Radiologic exam of the chest. Views: 1 view. COMPARISON: CT angio chest PE protcl [id number] 09/10/2024 11:04 AM FINDINGS: Tubes, catheters and devices: Left thoracostomy tube. Lungs: Atelectatic changes at the lung bases. Pleural spaces: I see no residual pneumothorax. Heart/Mediastinum: Very large hiatal hernia. Bones/joints: Unremarkable. Soft tissues: Subcutaneous emphysema along the left chest wall. XR/XR chest 1V portable [id number] IMPRESSION: Left thoracostomy tube insertion with no visible pneumothorax remaining.
[2024-09-10] MEDS: fentaNYL 50 mcg/mL INJ 2mL 100 MCG IVP (12:14)
[2024-09-10] MEDS: midazolam 1 mg/mL INJ 2 mL 6 MG IVP (12:21)
--- NOTE | 2024-09-10 12:22 | PC.NURSE ---
6MG OF VERSED ORDERED, 3MG OF VERSED GIVEN PER DR. WALKER. REMAINDER OF VERSED WASTED WITH SARTHAK FINNEGAN RN.
--- NOTE | 2024-09-10 12:36 | W.ED.SOB ---
HPI - SOB/Dyspnea General: Chief Complaint: Shortness of Breath/Dyspnea Stated Complaint: sob Time Seen by Provider: 09/10/24 09:11 History of Present Illness: HPI Narrative: 69-year-old male presents to the emergency room at the direction of his primary care doctor he been seen earlier in the week that he has COPD exacerbation and he seemed to be oxygenating rather normally he was given steroids and antibiotics. He worsened through the weekend and was reevaluated yesterday chest x-ray was done the results came back today and he had a small left-sided pneumothorax on the x-ray he was redirected to the emergency room his primary care doctor contacted me. On arrival here he is requiring 4 to 5 L previously not been on any oxygen he did had to increase that over the last few days. He denies any productive cough fever sweats or chills he does have chest pain with inspiration. No hemoptysis. Associated symptoms: Deny abdominal pain, chest pain or fever(s) Related Data Home Medications ?Medication ?Instructions ?Recorded ?Confirmed valsartan 160 mg tablet 160 mg PO DAILY 06/22/20 09/10/24 amlodipine 2.5 mg tablet 2.5 mg PO DAILY 11/05/20 09/10/24 rosuvastatin 10 mg tablet 10 mg PO DAILY 11/05/20 09/10/24 budesonide 160 mcg-glycopyr 9 2 inh inhalation BID 02/24/22 09/10/24 mcg-formot 4.8 mcg/actuation HFA inhaler (Breztri Aerosphere) albuterol sulfate 90 mcg/actuation 20 puff inhalation Q4H PRN 09/10/24 09/10/24 aerosol inhaler Shortness Of Breath benzonatate 200 mg capsule 200 mg PO TID PRN Cough 09/10/24 09/10/24 doxycycline hyclate 100 mg capsule 100 mg PO BID 09/10/24 09/10/24 pantoprazole 40 mg tablet,delayed 40 mg PO DAILY 09/10/24 09/10/24 release prednisone 10 mg tablet 10 mg PO BID 09/10/24 09/10/24 prednisone 20 mg tablet 40 mg PO QAM 09/10/24 09/10/24 Previous Rx's ?Medication ?Instructions ?Recorded etanercept 50 mg/mL (1 mL) 50 mg SUBCUT .Q7days #4 mL 08/08/24 subcutaneous syringe (Enbrel) Allergies Allergy/AdvReac Type Severity Reaction Status Date / Time shellfish derived Allergy Intermediate SWELL Verified 02/15/24 13:50 leflunomide AdvReac Intermediate Diarrhea Verified 02/15/24 13:52 Review of Systems Const: Denies: fever(s) or chills Card: Denies: chest pain Resp: Reports: dyspnea GI: Denies: abdominal pain : Denies: dysuria, urinary frequency or urinary urgency Musc: Denies: neck pain or back pain Skin/Breast: Denies: rash PFSH ED PFSH: Medical History Immunization counseling Pulmonary emboli Hypertension Hiatal hernia Seropositive rheumatoid arthritis of multiple sites Fibromyalgia Surgical History H/O chest tube placement Hx of cholecystectomy S/P prostatectomy Locally advanced prostate cancer status post prostatectomy Family History Other CAD (coronary artery disease) Cancer Family history of premature coronary artery disease Hypertension Stroke Denies family history of Rheumatoid arthritis Diabetes Lupus Social History Smoking and tobacco/nicotine status: never used tobacco/nicotine Quit status (tobacco/nicotine): has quit using Year quit tobacco: 2018 Former quit date comment: Hx of 1PPD x 50 Years Alcohol intake: never Substance/Drug Use: never Lives independently: Yes Household members: spouse Housing: House Marital status: Current occupational status: retired Do you think of yourself as: Straight/Heterosexual Current gender identity: Male Physical Exam Const: GENERAL APPEARANCE: cooperative ORIENTATION/CONSCIOUSNESS: Yes awake, Yes oriented to person, Yes oriented to place and Yes oriented to time HENMT: COMMON NORMALS: normocephalic, atraumatic and hearing grossly normal bilaterally HEAD & SCALP: normocephalic and atraumatic Resp: EFFORT & INSPECTION: Yes tachypneic, Yes respiratory distress, Yes labored and Yes uses accessory muscles AUSCULTATION: diminished lung sounds Cardio: COMMON NORMALS: regular rate, regular rhythm and No murmurs present (Cardio) RATE: regular rate RHYTHM: regular rhythm GI: COMMON NORMALS: Soft to palpation and No hepatosplenomegaly present AUSCULTATION: Yes normoactive bowel sounds PALPATION: Yes Soft to palpation, No Tenderness to palpation present (GI), No Guarding due to palpation present (GI) and Yes No hepatosplenomegaly present Extremity: COMMON NORMALS: normal to inspection, capillary refill normal, no clubbing, cyanosis or edema, no calf tenderness and no pedal edema Neuro: SENSORIUM/ORIENTATION: Yes oriented to person, Yes oriented to place and Yes oriented to time Skin: COMMON NORMALS: no rashes or lesions noted GENERAL SKIN EXAM: no rashes or lesions noted Procedures Chest Tube Chest Tube 1: Chest Tube Location: left, anterior axillary line and fourth interspace Size of Tube (cm): 24 Chest Tube Prep: Yes betadine prep and sterile drapes applied Local Anesthetic: lidocaine 1% Amount of anesthesia used (mL): 15 Incision Made With: #10 blade Post Procedure: sutured to skin Tube Drainage: none Post Procedure CXR?: Yes Patient Tolerated Procedure: Yes Procedural Sedation Indication: other (Chest tube placement) ASA Class: I Preparation: machine clothing man applied, pulse oximeter, supplemental O2 applied, suction/airway equipment at bedside and IV secured Fentanyl: IV Fentanyl dose (mcg): 50 Midazolam: IV Midazolam dose (mg): 3 Patient Tolerated Procedure: well Complications: none Course Vital Signs: Vital signs: Vital Signs Temperature 98.1 F 09/10/24 11:14 Pulse Rate 75 09/10/24 15:10 Respiratory Rate 17 09/10/24 15:10 Blood Pressure 130/88 09/10/24 15:10 Pulse Oximetry 93 09/10/24 15:10 Oxygen Delivery Me thod Nasal Cannula 09/10/24 11:23 Oxygen Flow Rate 3 09/10/24 11:23 MDM - SOB/Dyspnea Medical Decision Making 24 [place] chest tube placed. Tube visit comes to the chest wall does bend and goes across laterally however the lung is completely reinflated he has minimal discomfort. When placing the tube we did use the trocar to try to angle it towards the apex of the lung because of the size of the tube it bent easier unfortunately even after we had oriented in that direction. Patient is tolerating well we did not really position the tube because had successfully reinflated the lung. Medical Records I reviewed the patient's medical records. Lab Data I reviewed the patient's lab results. 09/10/24 10:32 09/10/24 10:32 Labs/Radiology: Radiology Impressions Chest CTA 09/10/24 09:11 IMPRESSION: 1. Large LEFT tension pneumothorax. 2. Compressed RIGHT lung due to the tension pneumothorax. Shift of the midline structures to the RIGHT. 3. No pulmonary embolism. 4. Large hiatal hernia containing stomach, colon and small bowel displacing the midline structures including the heart. Notified Elver Weir DO at 09/10/2024 11:24 AM. Chest X-Ray 09/10/24 12:13 IMPRESSION: Left thoracostomy tube insertion with no visible pneumothorax remaining. Laboratory Results WBC 9.24 10^3/uL (3.29-11.43) 09/10/24 10:32 RBC 5.55 10^6/uL (3.85-5.65) 09/10/24 10:32 Hgb 15.10 g/dL (11.27-16.99) 09/10/24 10:32 Hct 46.7 % (37-53) 09/10/24 10:32 MCV 84.1 fl (82-101) 09/10/24 10:32 MCH 27.2 pg (27-33) 09/10/24 10:32 MCHC 32.3 g/dL (30-55) 09/10/24 10:32 RDW 14.9 % (12.1-15.1) 09/10/24 10:32 Plt Count 289 10^3/cmm (157-399) 09/10/24 10:32 MPV 10.3 fL (7.4-10.4) 09/10/24 10:32 Neut % (Auto) 75.0 % 09/10/24 10:32 Lymph % (Auto) 14.8 % 09/10/24 10:32 Waldo % (Auto) 6.4 % 09/10/24 10:32 Eos % (Auto) 1.9 % 09/10/24 10:32 Baso % (Auto) 0.9 % 09/10/24 10:32 Neut # (Auto) 6.93 10^3/uL (1.8-7.7) 09/10/24 10:32 Lymph # (Auto) 1.4 10^3/uL (0.8-4.8) 09/10/24 10:32 Waldo # (Auto) 0.6 10^3/uL (0.2-0.9) 09/10/24 10:32 Eos # (Auto) 0.2 10^3/uL (0.0-0.8) 09/10/24 10:32 Baso # (Auto) 0.1 10^3/uL (0.0-0.1) 09/10/24 10:32 Nucleated RBC % (auto) 0 % 09/10/24 10:32 Nucleated RBCs # 0.0 /100WBC 09/10/24 10:32 PT 12.80 SECONDS (12.1-14.9) 09/10/24 10:33 INR 0.90 (0.8-1.2) 09/10/24 10:33 APTT 35.6 SECONDS (23.9-36.7) 09/10/24 10:33 Specimen Type Arterial 09/10/24 10:20 Sample Site Radial, right 09/10/24 10:20 ABG pH 7.45 (7.35-7.45) 09/10/24 10:20 ABG pCO2 31.8 mmHg (35-45) L 09/10/24 10:20 ABG pO2 67.7 mmHg (80.0-100.0) L 09/10/24 10:20 ABG PO2/FiO2 Ratio 211 09/10/24 10:20 ABG HCO3 22.3 mmol/L (22-26) 09/10/24 10:20 ABG O2 Saturation 92.7 09/10/24 10:20 ABG Base Excess -0.7 mmol/L (-2.0-2.0) 09/10/24 10:20 Ghassan Test Pos 09/10/24 10:20 A-a O2 Gradient 15.0 mmHg (5-10) H 09/10/24 10:20 Hematocrit 48.1 % (42-52) 09/10/24 10:20 Hgb O2 Saturation 91.9 % (95-100) L 09/10/24 10:20 Carboxyhemoglobin < 0.3 %THgb (0.4-20.1) L 09/10/24 10:20 Methemoglobin 1.0 % (0.4-1.5) 09/10/24 10:20 Total Hemoglobin 15.7 g/dL (14-18) 09/10/24 10:20 Sodium 144.0 mmol/L (131-143) H 09/10/24 10:20 Potassium 3.7 mmol/L (3.5-5.0) 09/10/24 10:20 Glucose 132.0 mg/dL (70-115) H 09/10/24 10:20 Ionized Calcium 1.2 mmol/L (1.1-1.4) 09/10/24 10:20 O2 Delivery Device Nc 09/10/24 10:20 O2 Liters/Min 3.0 % 09/10/24 10:20 FiO2 32.0 % 09/10/24 10:20 Metal Furniture Glazier ID Monro 09/10/24 10:20 Sodium 142 mmol/L (136-145) 09/10/24 10:32 Potassium 3.9 mmol/L (3.5-5.1) 09/10/24 10:32 Chloride 108 mmol/L (98-107) H 09/10/24 10:32 Carbon Dioxide 22 mmol/L (22-29) 09/10/24 10:32 Anion Gap 15.9 (5-19) 09/10/24 10:32 BUN 20 mg/dL (8-23) 09/10/24 10:32 Creatinine 0.9 mg/dL (0.7-1.2) 09/10/24 10:32 GFR Calculation 83.9 mL/min (90-130) L 09/10/24 10:32 Glucose 127 mg/dL (65-115) H 09/10/24 10:32 Calculated Osmolality 298 mOsm/kg (285-295) H 09/10/24 10:32 Calcium 9.5 mg/dL (8.5-10.5) 09/10/24 10:32 Total Bilirubin 0.4 mg/dL (0.15-1.2) 09/10/24 10:32 AST 21 U/L (0-40) 09/10/24 10:32 ALT 22 U/L (0-41) 09/10/24 10:32 Alkaline Phosphatase 82 U/L (40-130) 09/10/24 10:32 Total Protein 7.6 g/dL (6.6-8.7) 09/10/24 10:32 Albumin 4.4 g/dL (3.5-5.2) 09/10/24 10:32 Globulin 3.2 g/dL (1.3-4.6) 09/10/24 10:32 All radiology interpretation(s) finalized by discharge Discharge Plan Discharge Patient Disposition: Xfer Short-Term Hosp Clinical Impression: Pneumothorax, spontaneous, tension, Acute on chronic respiratory failure with hypoxia Condition: Stable Prescriptions: No Action valsartan 160 mg tablet 160 mg PO DAILY amlodipine 2.5 mg tablet 2.5 mg PO DAILY rosuvastatin 10 mg tablet 10 mg PO DAILY Breztri Aerosphere 160-9-4.8 mcg/actuation HFA aerosol inhaler 2 inh inhalation BID Enbrel 50 mg/mL (1 mL) syringe 50 mg SUBCUT .Q7days Qty: 4 5RF pantoprazole 40 mg tablet,delayed release (DR/EC) 40 mg PO DAILY prednisone 10 mg tablet 10 mg PO BID doxycycline hyclate 100 mg capsule 100 mg PO BID benzonatate 200 mg capsule 200 mg PO TID PRN (Reason: Cough) prednisone 20 mg tablet 40 mg PO QAM Rx Instructions: x5days albuterol sulfate 90 mcg/actuation HFA aerosol inhaler 20 puff INHALATION Q4H PRN (Reason: Shortness Of Breath) Referrals: Mukesh Reyes MD [Primary Care Provider] - Print Language: Turkmen Coding Level of Care Code ED Compliance Counsel for Amy Raymond
[2024-09-10] MEDS: acetaminophen 500 mg Tablet 1000 MG PO (18:19)
[2024-09-11] VITALS (57 sets, daily range): BP systolic 104–166; BP diastolic 62–119; PULSE 67–147; RESP 12–20; O2SAT 89–98
[2024-09-11] MEDS: acetaminophen 500 mg Tablet 1000 MG PO (01:29)
--- NOTE | 2024-09-11 07:26 | PC.NURSE ---
this nurse, Marquis Flores RN assessed chest tube. no leaks noted, no bubbling noted in water seal chamber; bubbling present in suction control chamber. chest tube connected to continuous wall suction @20mmHg. pt denies pain at this time.
--- NOTE | 2024-09-11 07:50 | PC.NURSE ---
per [facility] transfer center, pt will likely be on 4C and transfer is pending discharges. pt updated and provided coffee/breakfast tray. denies any further needs at this time.
--- NOTE | 2024-09-11 09:34 | XRR_ITS ---
PROCEDURE INFORMATION: Exam: XR Chest Exam date and time: 09/11/2024 9:39 AM Age: 69 years old Clinical indication: Device placement; Chest tube; HX of prostate cancer TECHNIQUE: Imaging protocol: Radiologic exam of the chest. Views: 1 view. COMPARISON: CR XR chest 1V portable [id number] 09/10/2024 12:13 PM FINDINGS: Tubes, catheters and devices: Stable cardiomegaly, hiatal hernia, and left thoracostomy tube. Lungs: Mild left lower lobe atelectasis or infiltrate. Pleural spaces: See Soft tissues finding. Heart/Mediastinum: Unremarkable. No cardiomegaly. Bones/joints: Unremarkable. Soft tissues: Slightly increasing subcutaneous emphysema along the left chest wall. No definite pneumothorax remains. XR/XR chest 1V portable [id number] IMPRESSION: Slightly increasing left chest wall subcutaneous emphysema. No other change.
--- NOTE | 2024-09-11 12:04 | PC.NURSE ---
provided pt with lunch tray, pt sleeping at this time, family at bedside.
--- NOTE | 2024-09-11 15:09 | PC.NURSE ---
called report to YG Rosas on 4A [id number] at [facility]. report number [phone]
--- NOTE | 2024-09-11 15:15 | PC.NURSE ---
pt updated on report being called, no further questions.
--- NOTE | 2024-09-11 17:16 | PC.NURSE ---
report given to [facility], no further questions
[2024-09-11] MEDS: HYDROMORPHONE HCL 0.5 MG/0.5 ML INJ 1 MG IVP (17:25)
--- NOTE | 2024-09-11 17:26 | PC.NURSE ---
pt left facility at approx [phone]
== END 2024-09-11 17:26 | disposition short-term general hospital (02) ==
PROVIDERS: Emergency Provider Family Medicine; PCP Family Medicine
DX: J93.0 Spontaneous tension pneumothorax (principal); J96.21 Acute and chronic respiratory failure with hypoxia; Z87.891 Personal history of nicotine dependence; I10 Essential (primary) hypertension
CPT/HCPCS: 32551; 36600; 71045; 71275; 80051; 80053; 82330; 82805; 85025; 85610; 85730; 94640; 96374; 96375; 99152; 99285; J1100; J1171; J2250; J3010

== ENCOUNTER 2024-09-27 09:13 | Outpatient (CLI) | payer MEDICARE, SELFPAY ==
--- NOTE | 2024-09-27 09:16 | CT_ITS ---
WS: [id number] CT CHEST TECHNIQUE: Noncontrast CT of the chest with coronal and sagittal reformatted images. CLINICAL INFORMATION: LEFT PNEUMOTHORAX COMPARISON: 09/10/2024 DLP: 704.[address] scans at [facility] use at least one of these dose optimization techniques: automated exposure control; mA and/or kV adjustment per patient size (includes targeted exams where dose is matched to clinical indication); or iterative reconstruction. FINDINGS: Previously described pneumothorax is essentially resolved. Tiny trace of pneumothorax in the anterior LEFT lung measuring 1.9 cm not clinically significant. Moderate chronic emphysematous changes. Pleural thickening with spiculation in the LEFT lung apex with serpiginous pleural calcifications likely pleurodesis. Ovoid area of loculated fluid or scarring in the LEFT upper lobe with presumed postoperative pleurodesis. Small LEFT pleural effusion. Diffuse subcutaneous air along the anterior posterior and lateral chest wall presumably due to recent chest tube and chest tube removal. Small amount of subcutaneous air migrating into the anterior RIGHT anterior chest soft tissues. No pneumothorax in the RIGHT lung. No mediastinal shift. Large esophageal hiatal hernia. Prior cholecystectomy. Normal LEFT adrenal gland. Small RIGHT adrenal adenoma. Cholecystectomy clips. Fatty atrophy of the pancreas. Aortic calcification. CT/CT chest wo con [id number] IMPRESSION: 1. Previously described tension pneumothorax has resolved. Suggestion of a tin y minuscule trace of possible pneumothorax in the anterior LEFT lung measuring 1.9 cm not clinically significant. 2. Subcutaneous emphysematous change within the LEFT anterior subcutaneous fat and musculature extending along the chest wall and LEFT lateral chest wall as well as posteriorly presumably due to recent chest tube placement and removal. No evidence of pneumomediastinum. 3. New small LEFT pleural effusion with slight compressive atelectasis LEFT lo wer lobe. 4. Large persistent esophageal hiatal hernia. 5. Ovoid fluid collection or scarring in the LEFT upper lobe along the fissure with presumed postoperative changes likely pleurodesis in this area. 6. Parenchymal scarring in the LEFT upper lobe with spiculation and similar-ap pearing presumably postoperative changes with pleurodesis
== END 2024-09-27 09:14 | disposition home or self-care (01) ==
LOC: RAD 09:15
PROVIDERS: PCP Family Medicine; Visit Provider Family Medicine
DX: J93.9 Pneumothorax, unspecified (principal); J43.9 Emphysema, unspecified; K44.9 Diaphragmatic hernia without obstruction or gangrene; J90 Pleural effusion, not elsewhere classified; J98.4 Other disorders of lung; R91.8 Other nonspecific abnormal finding of lung field; Z90.49 Acquired absence of other specified parts of digestive tract; D35.01 Benign neoplasm of right adrenal gland; K86.89 Other specified diseases of pancreas; J92.9 Pleural plaque without asbestos
CPT/HCPCS: 71250

== ENCOUNTER 2024-09-30 08:52 | Emergency (ER) | payer MEDICARE, SELFPAY ==
[2024-09-30 09:25] VITALS: BP 111/74; PULSE 120; RESP 35; TEMP 36.7; O2SAT 90
--- NOTE | 2024-09-30 09:40 | XR_ITS ---
WS: [id number] Exam: XR chest 1V portable [id number] Date/Time of Exam: 09/30/2024 9:43 AM Reason For Exam: sob Comparison 09/11/2024. Left-sided chest tube is been removed. There is residual subcutaneous emphysema along the LEFT rib cage. No obvious pneumothorax. There is left pleural effusion along the lateral left lung. 3 cm nodular density seen in the LEFT lower lung zone with atelectasis and infiltrate. There is also atelectasis and infiltrate in the RIGHT lower lung zone. The heart is mildly enlarged but unchanged in size. The mediastinum is normal in contour. Large hiatal hernia. XR/XR chest 1V portable [id number] IMPRESSION: 1. No pneumothorax. 2. Atelectasis and infiltrate in both lower lung zones. 3. LEFT pleural effusion. 4. 3 cm nodular density seen in the LEFT lower lung zone. 5. Residual subcu emphysema along the LEFT rib cage and LEFT shoulder.
--- NOTE | 2024-09-30 09:51 | ECG_ITS ---
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 Measurements Intervals [place] Rate: 122 P: 40 CT: 139 QRS: 2 QRSD: 109 T: 48 QT: 290 QTc: 414 Interpretive Statements SINUS TACHYCARDIA ABNORMAL RHYTHM ECG INTERPRETATION BASED ON A DEFAULT AGE OF 40 YEARS Compared to ECG 04/18/2020 00:40:06 Ventricular premature complex(es) no longer present ST (T wave) deviation no longer present Electronically Signed On 09-30-2024 21:01:13 CDT by Carlos Garcia M.D. [id number]
[2024-09-30 10:17] LABS: Basophils # 0.2 10^3/uL (0.0-0.1); Basophils % 0.9 %; Eosinophils # 0.7 10^3/uL (0.0-0.8); Eosinophils % 4.2 %; Hematocrit 42.3 % (37-53); Lymphocytes # 1.8 10^3/uL (0.8-4.8); Lymphocytes % 11.4 %; Mean Corpuscular HGB Conc 32.2 g/dL (30-55); Mean Corpuscular Volume 84.1 fl (82-101); Mean Platelet Volume 9.4 fL (7.4-10.4); Monocytes # 2.1 10^3/uL (0.2-0.9); Neutrophils # 10.88 10^3/uL (1.8-7.7); Nucleated Red Blood Cells % 0 %; Platelet Count 467 10^3/cmm (157-399); Red Blood Count 5.03 10^6/uL (3.85-5.65); Red Cell Distribution Width 14.7 % (12.1-15.1); White Blood Count 15.79 10^3/uL (3.29-11.43)
[2024-09-30 10:39] LABS: Troponin(5th) Baseline 21 ng/L (0-15)
[2024-09-30 10:50] LABS: Alanine Aminotransferase 14 U/L (0-41); Albumin Level 3.7 g/dL (3.5-5.2); Alkaline Phosphatase 88 U/L (40-130); Anion Gap 18.3 (5-19); Aspartate Amino Transferase 15 U/L (0-40); Blood Urea Nitrogen 14 mg/dL (8-23); Calcium 8.9 mg/dL (8.5-10.5); Carbon Dioxide 20 mmol/L (22-29); Chloride 104 mmol/L (98-107); Glomerular Filtration Rate 83.9 mL/min (90-130); Glucose 124 mg/dL (65-115); NT Pro B Type Natriuretic Pept 257 pg/mL (0-125); Osmolality Calculated 288 mOsm/kg (285-295); Potassium 4.3 mmol/L (3.5-5.1); Sodium 138 mmol/L (136-145); Total Protein 6.7 g/dL (6.6-8.7)
--- NOTE | 2024-09-30 10:56 | CT_ITS ---
WS: [id number] CTA OF THE CHEST WITH PULMONARY EMBOLISM PROTOCOL TECHNIQUE: High-resolution contrast enhanced CTA of the chest with coronal and sagittal reformatted images with pulmonary embolism protocol. MIP images are also reviewed. CLINICAL INFORMATION: Chest pain increase shortness of breath COMPARISON: None. DLP: 498.[address] scans at [facility] use at least one of these dose optimization techniques: automated exposure control; mA and/or kV adjustment per patient size (includes targeted exams where dose is matched to clinical indication); or iterative reconstruction. FINDINGS: Proximal main pulmonary arteries are normal. No evidence of pulmonary embolus. Normal segmental and subsegmental pulmonary arteries are visualized. Persistent large esophageal hiatal hernia with intrathoracic stomach. Herniation of a portion of the transverse colon into the hernia unchanged since the prior studies. No evidence of obstruction. Resolution of the previously described tension pneumothorax. Volume loss LEFT lung with evidence of pleurodesis changes. LEFT pleural effusion has increased compared to previous with a somewhat loculated appearance. Chronic emphysematous changes. Persistent but improved subcutaneous emphysema along the chest wall. This is presumably due to recent chest tube placement. No recurrent pneumothorax today. Cholecystectomy. CT/CT angio chest PE protcl [id number] IMPRESSION: 1. No evidence of pulmonary embolus. 2. No recurrent pneumothorax. Increasing loculated appearing pleural fluid LEF T lung increased compared to 09/27/2024. 3. Interval postoperative changes pleurodesis LEFT lung. 4. Persistent large esophageal hiatal hernia described above. 5. Persistent but slightly improved subcutaneous emphysema along the LEFT ches t wall
[2024-09-30 11:07] LABS: Influenza A NEGATIVE (Negative); Influenza B NEGATIVE (Negative); Respiratory Syncytial Virus Ce NEGATIVE (Negative); SARS-CoV-2 PCR NEGATIVE (Negative)
[2024-09-30] MEDS: morphine 4 mg/mL SDV 1 mL IVP ×2 (11:07→14:58)
[2024-09-30] MEDS: iohexol 350 mg/mL 500 mL Btl (per mL) IV (11:14)
[2024-09-30 11:19] VITALS: BP 100/70
--- NOTE | 2024-09-30 11:51 | ECG_ITS ---
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 Measurements Intervals [place] Rate: 107 P: 47 WI: 144 QRS: 5 QRSD: 113 T: 46 QT: 316 QTc: 423 Interpretive Statements SINUS TACHYCARDIA POSSIBLE LEFT ATRIAL ENLARGEMENT [-0.1mV P-WAVE IN V1/V2] MODERATE INTRAVENTRICULAR CONDUCTION DELAY [110+ ms QRS DURATION] ABNORMAL RHYTHM ECG Compared to ECG 09/30/2024 09:19:40 Intraventricular conduction delay now present Electronically Signed On 09-30-2024 21:11:10 CDT by Carlos Garcia M.D. [email or web address] [id number]
[2024-09-30 12:39] LABS: Troponin 5 2HR 18.13 ng/L (0-15); Troponin 5 2HR Delta -2.87 ABS# (0-10)
--- NOTE | 2024-09-30 13:28 | ED_ITS ---
HPI - SOB/Dyspnea 2 General: Chief Complaint: Shortness of Breath/Dyspnea Stated Complaint: sob Time Seen by Provider: 09/30/24 09:23 History of Present Illness: HPI Narrative: 69-year-old [facility] complaining of increasing left sided chest pain worse with deep inspiration. We have seen this patient approximately 1 month ago at that time he had a large left tension pneumothorax. This is due to rupture of a flap. Chest tube was placed he had good reinflation of the lung he was transferred to pulmonology in [place]. There he eventually underwent a VATS procedure with a wedge resection of his lung and a mechanical pleurodesis. He has small cell oral effusion 3 days ago on imaging here. Now he has increasing pain. When he was discharged home from the hospital in [place] he was not requiring oxygen. There is a respiratory therapist and was helping monitor at home she had noted hypoxia she made arrangements for home O2 initially she was giving him to 2 L now he is up to 4 L by nasal cannula to maintain his oxygen sats in the low 90s Associated symptoms: Reports chest pain; Deny abdominal pain or fever(s) Related Data Home Medications ?Medication ?Instructions ?Recorded ?Confirmed amlodipine 2.5 mg tablet 2.5 mg PO DAILY 11/05/20 rosuvastatin 10 mg tablet 10 mg PO DAILY 11/05/2009/08 budesonide 160 mcg-glycopyr 9 2 inh inhalation BID 09/30/24 mcg-formot 4.8 mcg/actuation HFA inhaler (Breztri Aerosphere) albuterol sulfate 90 mcg/actuation 20 puff inhalation Q4H PRN 09/10/24 09/30/24 aerosol inhaler Shortness Of Breath pantoprazole 40 mg tablet,delayed 40 mg PO DAILY 09/1009/30/24 release calcium carbonate (Calcium 600) 600 mg PO DAILY 09/30/24 oxycodone 5 mg tablet 5 mg PO Q6H PRN Pain 5 09/30/24 prednisone 5 mg tablet 5 mg PO DAILY PRN Rhumatoid 09/30/24 09/30/24 arthritis valsartan 320 mg tablet 320 mg PO DAILY 09/30/24 Previous Rx's ?Medication ?Instructions ?Recorded etanercept 50 mg/mL (1 mL) 50 mg SUBCUT .Q7days #4 mL 08/08/24 subcutaneous syringe (Enbrel) Allergies Allergy/AdvReac Type Severity Reaction Status Date / Time shellfish derived Allergy Intermediate SWELL Verified 09/30/24 09:29 leflunomide AdvReac Intermediate Diarrhea Verified 09/30/24 09:29 Review of Systems 2 Const: Denies: fever(s) or chills Card: Reports: chest pain, dyspnea on exertion and other (Conversational dyspnea) Resp: Denies: dyspnea GI: Denies: abdominal pain : Denies: dysuria, urinary frequency or urinary urgency Musc: Denies: neck pain or back pain Skin/Breast: Denies: rash PFSH ED 2 PFSH: Medical History Immunization counseling Pulmonary emboli Hypertension Hiatal hernia Seropositive rheumatoid arthritis of multiple sites Fibromyalgia Surgical History H/O chest tube placement Hx of cholecystectomy S/P prostatectomy Locally advanced prostate cancer status post prostatectomy Family History Other CAD (coronary artery disease) Cancer Family history of premature coronary artery disease Hypertension Stroke Denies family history of Rheumatoid arthritis Diabetes Lupus Social History Smoking and tobacco/nicotine status: never used tobacco/nicotine Quit status (tobacco/nicotine): has quit using Year quit tobacco: 2018 Former quit date comment: Hx of 1PPD x 50 Years Alcohol intake: never Substance/Drug Use: never Lives independently: Yes Household members: spouse Housing: House Marital status: Current occupational status: retired Do you think of yourself as: Straight/Heterosexual Current gender identity: Male Physical Exam 2 Const: ORIENTATION/CONSCIOUSNESS: Yes awake, Yes oriented to person, Yes oriented to place and Yes oriented to time HENMT: COMMON NORMALS: normocephalic, atraumatic and hearing grossly normal bilaterally HEAD & SCALP: normocephalic and atraumatic Chest: OTHER: Mild localized redness at old chest tube site on the left lateral chest wall Resp: EFFORT & INSPECTION: Yes tachypneic and Yes uses accessory muscles A USCULTATION: rhonchi and wheezes Cardio: COMMON NORMALS: regular rhythm and No murmurs present (Cardio) R ATE: tachycardic RHYTHM: regular rhythm GI: COMMON NORMALS: Soft to palpation and No hepatosplenomegaly present A USCULTATION: Yes normoactive bowel sounds PALPATION: Yes Soft to palpation, No Tenderness to palpation present (GI), No Guarding due to palpation present (GI) and Yes No hepatosplenomegaly present Extremity: COMMON NORMALS: normal to inspection, capillary refill normal, no clubbing, cyanosis or edema, no calf tenderness and no pedal edema Neuro: SENSORIUM/ORIENTATION: Yes oriented to person, Yes oriented to place and Yes oriented to time Skin: COMMON NORMALS: no rashes or lesions noted GENERAL SKIN EXAM: no rashes or lesions noted Course 2 Vital Signs: Vital signs: Vital Signs Temperature 98.1 F 09/30/24 09:25 Pulse Rate 91 09/30/24 16:45 Respiratory Rate 24 H 09/30/24 15:15 Blood Pressure 125/85 09/30/24 16:45 Pulse Oximetry 91 09/30/24 16:45 Oxygen Delivery Me thod Nasal Cannula 09/30/24 15:15 Oxygen Flow Rate 4 09/30/24 15:15 MDM - SOB/Dyspnea Medical Decision Making Increasing left pleural effusion with severe pain at that level there is also leukocytosis. Suspect the patient is developing an empyema. He does not have any PE no recurrence of pneumothorax. Antibiotics have been started we will transfer Back to [facility] to see pulmonology. Medical Records I reviewed the patient's medical records. Lab Data I reviewed the patient's lab results. 09/30/24 10:09 09/30/24 10:09 Labs/Radiology: Radiology Impressions Chest X-Ray 09/30/24 09:40 IMPRESSION: 1. No pneumothorax. 2. Atelectasis and infiltrate in both lower lung zones. 3. LEFT pleural effusion. 4. 3 cm nodular density seen in the LEFT lower lung zone. 5. Residual subcu emphysema along the LEFT rib cage and LEFT shoulder. Chest CTA 09/30/24 10:56 IMPRESSION: 1. No evidence of pulmonary embolus. 2. No recurrent pneumothorax. Increasing loculated appearing pleural fluid LEFT lung increased compared to 09/27/2024. 3. Interval postoperative changes pleurodesis LEFT lung. 4. Persistent large esophageal hiatal hernia described above. 5. Persistent but slightly improved subcutaneous emphysema along the LEFT chest wall Laboratory Results WBC 15.79 10^3/uL (3.29-11.43) H 09/30/24 10:09 RBC 5.03 10^6/uL (3.85-5.65) 09/30/24 10:09 Hgb 13.60 g/dL (11.27-16.99) 09/30/24 10:09 Hct 42.3 % (37-53) 09/30/24 10:09 MCV 84.1 fl (82-101) 09/30/24 10:09 MCH 27.0 pg (27-33) 09/30/24 10:09 MCHC 32.2 g/dL (30-55) 09/30/24 10:09 RDW 14.7 % (12.1-15.1) 09/30/24 10:09 Plt Count 467 10^3/cmm (157-399) H 09/30/24 10:09 MPV 9.4 fL (7.4-10.4) 09/30/24 10:09 Neut % (Auto) 69.0 % 09/30/24 10:09 Lymph % (Auto) 11.4 % 09/30/24 10:09 [place] % (Auto) 13.0 % 09/30/24 10:09 Eos % (Auto) 4.2 % 09/30/24 10:09 Baso % (Auto) 0.9 % 09/30/24 10:09 Neut # (Auto) 10.88 10^3/uL (1.8-7.7) H 09/30/24 10:09 Lymph # (Auto) 1.8 10^3/uL (0.8-4.8) 09/30/24 10:09 [place] # (Auto) 2.1 10^3/uL (0.2-0.9) H 09/30/24 10:09 Eos # (Auto) 0.7 10^3/uL (0.0-0.8) 09/30/24 10:09 Baso # (Auto) 0.2 10^3/uL (0.0-0.1) H 09/30/24 10:09 Nucleated RBC % (auto) 0 % 09/30/24 10:09 Nucleated RBCs # 0.0 /100WBC 09/30/24 10:09 Sodium 138 mmol/L (136-145) 09/30/24 10:09 Potassium 4.3 mmol/L (3.5-5.1) 09/30/24 10:09 Chloride 104 mmol/L (98-107) 09/30/24 10:09 Carbon Dioxide 20 mmol/L (22-29) L 09/30/24 10:09 Anion Gap 18.3 (5-19) 09/30/24 10:09 BUN 14 mg/dL (8-23) 09/30/24 10:09 Creatinine 0.9 mg/dL (0.7-1.2) 09/30/24 10:09 GFR Calculation 83.9 mL/min (90-130) L 09/30/24 10:09 Glucose 124 mg/dL (65-115) H 09/30/24 10:09 Calculated Osmolality 288 mOsm/kg (285-295) 09/30/24 10:09 Lactic Acid 1.3 mmol/L (0.5-2.2) 09/30/24 10:09 Calcium 8.9 mg/dL (8.5-10.5) 09/30/24 10:09 Total Bilirubin 1.0 mg/dL (0.15-1.2) 09/30/24 10:09 AST 15 U/L (0-40) 09/30/24 10:09 ALT 14 U/L (0-41) 09/30/24 10:09 Alkaline Phosphatase 88 U/L (40-130) 09/30/24 10:09 Troponin T Baseline 21 ng/L (0-15) H 09/30/24 10:09 Troponin T 120 Minute 18.13 ng/L (0-15) H 09/30/24 12:16 Delta Troponin T -2.87 ABS# (0-10) L 09/30/24 12:16 Troponin T Hi Sens 6Hr 18.86 ng/L (0-15) H 09/30/24 16:05 Troponin T Hi Sens 6Hr Delta -2.14 ng/L (0-12) L 09/30/24 16:05 NT-Pro-B Natriuret Pep 257 pg/mL (0-125) H 09/30/24 10:09 Total Protein 6.7 g/dL (6.6-8.7) 09/30/24 10:09 Albumin 3.7 g/dL (3.5-5.2) 09/30/24 10:09 Globulin 3.0 g/dL (1.3-4.6) 09/30/24 10:09 Influenza A (PCR) Negative (Negative) 09/30/24 10:13 Influenza Type B (PCR) Negative (Negative) 09/30/24 10:13 RSV (PCR) Negative (Negative) 09/30/24 10:13 SARS-CoV-2 (PCR) Negative (Negative) 09/30/24 10:13 All radiology interpretation(s) finalized by discharge Discharge Plan Discharge Patient Disposition: Transfer to ED Clinical Impression: Empyema lung, Chronic bullous emphysema, Pleural effusion on left Condition: Stable Prescriptions: No Action amlodipine 2.5 mg tablet 2.5 mg PO DAILY rosuvastatin 10 mg tablet 10 mg PO DAILY Breztri Aerosphere 160-9-4.8 mcg/actuation HFA aerosol inhaler 2 inh inhalation BID Enbrel 50 mg/mL (1 mL) syringe 50 mg SUBCUT .Q7days Qty: 4 5RF pantoprazole 40 mg tablet,delayed release (DR/EC) 40 mg PO DAILY albuterol sulfate 90 mcg/actuation HFA aerosol inhaler 20 puff INHALATION Q4H PRN (Reason: Shortness Of Breath) prednisone 5 mg Tablet 5 mg PO DAILY PRN (Reason: Rhumatoid arthritis) calcium carbonate [Calcium 600] 600 mg calcium (1,500 mg) Tablet 600 mg PO DAILY valsartan 320 mg Tablet 320 mg PO DAILY oxycodone 5 mg tablet 5 mg PO Q6H PRN (Reason: Pain) Referrals: Mukesh Reyes MD [Primary Care Provider] - Print Language: Belizean Coding Level of Care Code ED Traffic Enumerator for Amy Raymond
[2024-09-30 13:43] LABS: Lactic Sepsis W/Reflex 1.3 mmol/L (0.5-2.2)
[2024-09-30] MEDS: VANCOMYCIN ADD-Vantage 1,000 MG in 0.9% NaCl ADD-Vantage 250 ML 250 MG IV (14:07)
[2024-09-30] MEDS: piperacillin-tazobactam 3.375 GM in sodium chloride 0.9% (plus) 50 ML IV (14:11)
[2024-09-30] MEDS: sodium chloride 0.9% 1,000 ML 999 ML IV (14:20)
[2024-09-30 14:52] VITALS: BP 116/82; PULSE 88; O2SAT 92
[2024-09-30 14:58] VITALS: RESP 18; O2SAT 93
[2024-09-30 15:15] VITALS: BP 125/78; PULSE 90; RESP 24; O2SAT 90
--- NOTE | 2024-09-30 16:05 | ECG_ITS ---
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 Measurements Intervals [place] Rate: 89 P: 40 AK: 153 QRS: 6 QRSD: 118 T: 26 QT: 325 QTc: 396 Interpretive Statements SINUS RHYTHM MODERATE INTRAVENTRICULAR CONDUCTION DELAY [110+ ms QRS DURATION] Compared to ECG 09/30/2024 10:36:32 Sinus tachycardia no longer present Electronically Signed On 09-30-2024 21:07:02 CDT by Carlos Garcia M.D. [email or web address]
[2024-09-30 16:45] VITALS: BP 125/85; PULSE 91; O2SAT 91
[2024-09-30 16:46] LABS: Troponin 5 6HR 18.86 ng/L (0-15)
[2024-09-30 16:47] LABS: Troponin 5 6HR Delta -2.14 ng/L (0-12)
== END 2024-09-30 16:47 ==
PROVIDERS: Emergency Provider Family Medicine; PCP Family Medicine
DX: J43.9 Emphysema, unspecified (principal); J90 Pleural effusion, not elsewhere classified; J86.9 Pyothorax without fistula; Z11.52 Encounter for screening for COVID-19; Z87.891 Personal history of nicotine dependence; I10 Essential (primary) hypertension
CPT/HCPCS: 36415; 71045; 71275; 80053; 83605; 83880; 84484; 85025; 87637; 93005; 96365; 96366; 96367; 96375; 96376; 99285; J2270; J2543; J3370; J7030; J7050

== ENCOUNTER → 2024-10-14 09:07 | Outpatient (BNVA) | payer MEDICARE, SELFPAY | PROVIDERS: PCP Family Medicine; Visit Provider Internal Medicine Rheumatology | DX: M05.79 Rheumatoid arthritis with rheumatoid factor of multiple sites without organ or systems involvement (principal); Z79.899 Other long term (current) drug therapy; Z71.89 Other specified counseling; M79.7 Fibromyalgia | CPT/HCPCS: 99214 ==

== ENCOUNTER → 2025-02-10 10:11 | Outpatient (BNVA) | payer MEDICARE, SELFPAY | PROVIDERS: PCP Family Medicine; Visit Provider Internal Medicine Rheumatology | DX: M05.79 Rheumatoid arthritis with rheumatoid factor of multiple sites without organ or systems involvement (principal); Z79.899 Other long term (current) drug therapy; Z71.85 Encounter for immunization safety counseling; M79.7 Fibromyalgia | CPT/HCPCS: 36415; 80076; 82306; 82565; 85025; 85651; 86140; 86480; 99214 ==

== ENCOUNTER → 2025-05-19 08:52 | Outpatient (BNVA) | payer MEDICARE, SELFPAY | PROVIDERS: PCP Family Medicine; Visit Provider Dermatology | DX: L57.8 Other skin changes due to chronic exposure to nonionizing radiation (principal); L81.4 Other melanin hyperpigmentation; D18.01 Hemangioma of skin and subcutaneous tissue; L57.0 Actinic keratosis; D48.5 Neoplasm of uncertain behavior of skin | CPT/HCPCS: 11102; 17004; 69100; 99203 ==

== ENCOUNTER → 2025-05-28 12:53 | Outpatient (BNVA) | payer MEDICARE, SELFPAY | PROVIDERS: PCP Family Medicine; Visit Provider Dermatology | DX: D04.5 Carcinoma in situ of skin of trunk (principal); L57.0 Actinic keratosis | CPT/HCPCS: 11606; 12032; 17004 ==

== ENCOUNTER → 2025-06-24 09:18 | Outpatient (BNVA) | payer MEDICARE, SELFPAY | PROVIDERS: PCP Family Medicine; Visit Provider Internal Medicine Rheumatology | DX: M05.79 Rheumatoid arthritis with rheumatoid factor of multiple sites without organ or systems involvement (principal); Z79.899 Other long term (current) drug therapy; Z71.85 Encounter for immunization safety counseling; M79.7 Fibromyalgia; Z86.711 Personal history of pulmonary embolism; Z85.46 Personal history of malignant neoplasm of prostate | CPT/HCPCS: 99214 ==